=== PATIENT | female | born 1985 | race Caucasian/White ===

== ENCOUNTER → 2018-02-14 12:58 | Outpatient (CLI) | payer OTHER, SELFPAY | PROVIDERS: PCP Family Medicine; Visit Provider Physician Assistant | DX: J02.9 Acute pharyngitis, unspecified (principal) | CPT/HCPCS: 87070 ==

== ENCOUNTER → 2018-07-18 10:29 | Outpatient (CLI) | payer OTHER, SELFPAY ==
[2018-07-18 11:28] LABS: Cholesterol 163 mg/dL (140-199); HDL Cholesterol 97 mg/dL (40-60); LDL Cholesterol Calculated 50 mg/dL (<100); Triglycerides 81 mg/dL (35-150)
== END ==
PROVIDERS: PCP Student in an Organized Health Care Education/Training Program; Visit Provider Student in an Organized Health Care Education/Training Program
DX: E55.9 Vitamin D deficiency, unspecified (principal); Z13.220 Encounter for screening for lipoid disorders
CPT/HCPCS: 36415; 80061; 82306

== ENCOUNTER 2018-12-30 12:37 | Emergency (ER) | payer OTHER, SELFPAY ==
[2018-12-30 12:44] VITALS: BP 129/85; PULSE 86; RESP 15; TEMP 36.8; O2SAT 99; BMI 21.9
--- NOTE | 2018-12-30 12:47 | DI.RAD.S_ITS ---
PROCEDURE: XR ANKLE RT MIN 3V INDICATIONS: pain swelling TECHNIQUE: 3 views of the ankle were acquired. COMPARISON: None. FINDINGS: Bones: No displaced fractures or dislocations. Ankle mortise is normally aligned. No suspicious bony lesions. The talar dome demonstrates no ming abnormality. Soft tissues: Soft tissue swelling is seen laterally. IMPRESSION: Lateral soft tissue swelling, without an associated displaced fracture. If there is focal tenderness, or other clinical concern for a fracture not seen on these images in this patient with a given history of trauma, please consider a dedicated CT or a short-term followup plain film series (in 1-2 weeks) for further evaluation. If there is strong clinical suspicion for internal derangement of this joint, please consider a dedicated MRI for further evaluation (assuming that there is no contraindication to MRI). Dictated by: Prakash Riley M.D. on 12/30/2018 at 12:12 Approved by: Prakash Riley M.D. on 12/30/2018 at 12:13
[2018-12-30 14:18] VITALS: BP 124/83; PULSE 77; RESP 20; O2SAT 98
--- NOTE | 2019-01-01 08:12 | ED_ITS ---
HPI - Extremity Injury (Lower) General Chief Complaint: Extremity Injury, Lower Stated Complaint: Ankle Pain Time Seen by Provider: 12/30/18 13:10 Source: patient Mode of arrival: ambulatory Limitations: no limitations History of Present Illness HPI Narrative: Patient states she was running this morning on trails, and rolled her right ankle. She states that she had immediate pain and swelling, and did not want to walk on the ankle, for fear that it was broken. No prior injuries to the ankle. No injuries to any other body part. No other complaints at this time. Related Data Home Medications Medication Instructions Recorded Confirmed ascorbic acid (vitamin C) 500 mg PO QDAY #0 07/25/17 07/18/18 cholecalciferol (vitamin D3) 1,000 unit PO QDAY #0 07/25/17 07/18/18 [Vitamin D3] multivitamin [Multiple Vitamins] 1 tab PO QDAY #0 07/25/17 07/18/18 Previous Rx's Medication Instructions Recorded norgestimate 0.25 mg-ethinyl 1 tab PO DAILY #84 tab 07/25/18 estradiol 35 mcg tablet Allergies Allergy/AdvReac Type Severity Reaction Status Date / Time latex Allergy Severe Irritation Verified 12/30/18 12:44 to skin and respiratory reaction Review of Systems Constitutional Denies chills, Denies fever(s), Denies lethargy and Denies weakness Eyes Denies change in vision, Denies eye discharge, Denies irritation and Denies loss of vision ENT Ears, Nose, Mouth, and Throat: Denies change in voice, Denies neck pain and Denies sore throat Cardiovascular Denies chest pain, Denies irregular heart rhythm, Denies lightheadedness, Denies palpitations, Denies dyspnea, Denies dyspnea on exertion and Denies orthopnea Respiratory Denies cough, Denies dyspnea, Denies dyspnea on exertion and Denies wheezing Gastrointestinal Gastrointestinal: Denies abdominal pain, Denies change in bowel habits, Denies diarrhea, Denies nausea and Denies vomiting Genitourinary Denies hematuria, Denies flank pain, Denies urinary incontinence and Denies urinary urgency Musculoskeletal Denies neck pain Comments: Right ankle pain and swelling Integumentary/Breasts Denies pruritus, Denies erythema, Denies rash and Denies wounds Neurologic Denies confusion, Denies loss of vision and Denies weakness Psychiatric Denies anxiety, Denies confusion, Denies depression, Denies homicidal ideation and Denies suicidal ideation Endocrine Denies palpitations Hematologic/Lymphatic Denies easy bruising Allergic/Immunologic Denies wheezing [facility] Medical History Abnormal Pap smear of cervix (Resolved 2012) Vaginal delivery (Resolved) Social History Smoking Status: Former smoker alcohol intake: current Social History Smoking Status: Former smoker alcohol intake: current Exam Initial Vital Signs Initial Vital Signs: Vital Signs Temperature 98.3 F 12/30/18 12:44 Pulse Rate 86 12/30/18 12:44 Respiratory Rate 15 12/30/18 12:44 Blood Pressure 129/85 12/30/18 12:44 Pulse Oximetry 99 12/30/18 12:44 Const General: cooperative and well developed Nutritional Appearance: well nourished Orientation: alert, awake, oriented x3 and not confused HENMT Head: normocephalic and atraumatic Ears: external ears normal Nose: external nose normal and No nasal discharge Face and sinus: face symmetric and No dry mucous membranes Mouth: oral mucosae normal and moist mucous membranes Teeth and gingiva: dentition normal Eyes General: appearance normal, both eyes and all related structures Eyelids: eyelids normal Conjunctivae: conjunctivae normal Sclera: sclerae normal Pupils: PERRL EOM: EOM intact bilaterally Neck Neck: normal visual inspection, trachea midline, No lymphadenopathy, No midline deformity and No JVD Lymphatic: No lymphedema Chest Chest: normal inspection of the chest Resp Effort & Inspection: normal respiratory effort, able to speak in complete sentences, no respiratory distress and no use of accessory muscles Cardio Rate: regular rate Rhythm: regular rhythm Pulses: normal peripheral pulses Back/Spine/Pelvis Back: No CVA tenderness Cervical Spine: cervical ROM normal and No pain with cervical ROM Thoracic/Lumbar Spine: thoracic and lumbar spine normal to inspection Skin General: no rashes or lesions noted, No jaundice and No petechiae Neuro General: alert, oriented x3, gait normal and no focal motor deficits Speech: speech normal Extrem General: no calf tenderness Other: Patient has moderate edema over her lateral ankle, involving the distal fibular area, as well as the tissues just distal to this. There is point tender ness over the talofibular ligament area, as well as over the distal fibula. No deformity or step-off. Patient has movement of her toes, though she reports that it seems difficult to move her 4th and 5th toes, partly secondary to pain, and partly because it just seems difficult to do. Patient has good attention on her tendons, and tendon movement is noted with effort to move the toes. Psych Appearance: well kempt Mental Status: mental status grossly normal Attitude: cooperative Thought Content: normal and suicidality Judgment: judgment good Course Course Narrative: Patient declined analgesics in the emergency department, but was given ice. X-ray series of the patient's right ankle was negative for fracture or dislocation. I discussed with the patient that she is most likely sprained her ankle, and that this will take some weeks to heal. We have discussed home management of the symptoms, including weight-bearing as tolerated, when tolerated. An air splint has been placed in the emergency department. Patient states she has crutches at home. We have discussed that when the patient is pain-free with walking, she may start doing jogging on smooth ground again, but should hold off on trail running for the next 4-6 weeks. We have discussed the indications for follow-up, as well as the usual indications for return. MDM - Extremity Injury (Lower) Medical Records Attestation: I reviewed the patient's medical records. Imaging Data Ankle x-ray: Radiologist's impression: PROCEDURE: XR ANKLE RT MIN 3V INDICATIONS: pain swelling TECHNIQUE: 3 views of the ankle were acquired. COMPARISON: None. FINDINGS: Bones: No displaced fractures or dislocations. Ankle mortise is normally aligned. No suspicious bony lesions. The talar dome demonstrates no ming abnormality. Soft tissues: Soft tissue swelling is seen laterally. IMPRESSION: Lateral soft tissue swelling, without an associated displaced fracture. If there is focal tenderness, or other clinical concern for a fracture not seen on these images in this patient with a given history of trauma, please consider a dedicated CT or a short-term followup plain film series (in 1-2 weeks) for further evaluation. If there is strong clinical suspicion for internal derangement of this joint, please consider a dedicated MRI for further evaluation (assuming that there is no contraindication to MRI). Dictated by: Prakash Riley M.D. on 12/30/2018 at 12:12 Approved by: Prakash Riley M.D. on 12/30/2018 at 12:13 Discharge Plan Departure Patient Disposition: Home Clinical Impression: Ankle sprain and strain Discharge Date/Time: 12/30/18 14:19 Interventions: ED Discharge Assessment Last Done: 12/30/18 14:18 Instructions: DI for Ankle Sprain Activity Restrictions/Additional Instructions: Your x-rays look good. There is no evidence of a break or dislocation. You have most likely sprained your ankle. This will heal on its own in time. You may use crutches and the air splint, as needed. You may return to jogging and running when you are able to walk pain-free. Prescriptions: No Action multivitamin [Multiple Vitamins] 1 EACH tablet 1 tab PO QDAY Qty: 0 RF: 0 ascorbic acid (vitamin C) 500 MG tablet 500 mg PO QDAY Qty: 0 RF: 0 cholecalciferol (vitamin D3) [Vitamin D3] 1,000 UNIT tablet 1,000 unit PO QDAY Qty: 0 RF: 0 norgestimate-ethinyl estradiol [Sprintec (28)] 0.25-35 mg-mcg tablet 1 tab PO DAILY Qty: 84 RF: 1 Referrals: Lenin Martinez MD [Primary Care Provider] -
== END 2018-12-30 14:19 | disposition home or self-care (01) ==
PROVIDERS: Emergency Provider Emergency Medicine; PCP Student in an Organized Health Care Education/Training Program
DX: S93.401A Sprain of unspecified ligament of right ankle, initial encounter (principal); S96.911A Strain of unspecified muscle and tendon at ankle and foot level, right foot, initial encounter
CPT/HCPCS: 73610; 99282; 99283

== ENCOUNTER 2019-03-18 08:15 | Outpatient (RCR) | payer OTHER, SELFPAY ==
--- NOTE | 2019-02-12 18:01 | PT.OIE ---
Current Diagnoses Muscle weakness (generalized) (02/12/19) Other symptoms and signs involving the musculoskeletal system (02/12/19) Sprain of unspecified ligament of unspecified ankle, initial encounter (02/12/19) Other specified injury of muscle and tendon of long extensor muscle of toe at ankle and foot level, right foot, initial encounter (02/12/19) Past Medical History (Last Reviewed 01/01/19 @ 08:20 by Lindsey Gerardo MD) Abnormal Pap smear of cervix (Resolved 2012) Vaginal delivery (Resolved) Provider Visit Care Team Role Provider Type Lenin Martinez MD Attending Provider Physician Primary Care Provider Specialty: Internal Medicine Address: [address] [place] [address], [facility] Email: Physical Therapy Initial Evaluation PT-OP-A Visit Information Start: 02/11/19 14:59 Freq: Status: Active Protocol: Document 02/12/19 08:15 LRN (Rec: 02/12/19 09:46 LRN [id number]) Out-Patient Physical Therapy Visit Information Visit Information Visit Type Initial Evaluation Visit Start Time 08:15 Visit Stop Time 09:07 Total Visit Minutes 52 Visit Number 1 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 History of Current Condition Pt reports 2.5 miles into a 10 mile run on a trail she rolled the R ankle (inversion direction) over a root and heard a pop and/or snap and had immediate swelling and bruising. She was unable to walk and was carried out by her son. She was given and aircast brace in the emergency room and wore it for 2 weeks, and then wrapped it for one week. She currently exercises with her kids and does cycling. At home she is bothered by stiffness in the R ankle in the morning and has difficulty with descending of stairs or descending with hiking. Pointing of her toes and turning her foot inwards hurts, but flexing up is not painful. Prior Treatments and Tests X-ray @ on 12/30/18. No fractures. Future Testing and Treatments Planned None Developmental History Developmental History Has rolled ankle before many times but nothing with injury. Treatment Goals Patient/Caregiver Goals Pt goal is to get it back to normal. Biking, running. Prior level: Run 20-25 miles/ week, more in the summer. Biked daily. Prior Functional Status Baseline Function- ADL's Independent Baseline Function- Mobility Independent Baseline Function- Gait Normal Current Functional Impairments (Reported) Functional Limitations- ADL's Limited with squatting, walking down stairs, standing and moving foot into inversion . Functional Limitations- Mobility/Gait None Personal Factors Other Personal Factors That May Effect Children at home: 16 yr old Therapy/Recovery daughter & two 15 yr olds. Back pain with prolonged standing. Latex allergy PT-OP-C Subjective Start: 02/11/19 14:59 Freq: Status: Active Protocol: Document 02/12/19 08:15 LRN (Rec: 02/12/19 09:46 LRN [id number]) Patient Questionnaires Foot & Ankle Ability Measure- ADL and Sports FAAM-ADL Score 77 FAAM-ADL Impairment 1 to 19% Impaired (Score 67-83 ) FAAM-Sport Score 15 FAAM-Sport Impairment 40 to 59% Impaired (Score 12- 18) Lower Extremity Functional Scale LEFS Score 67 LEFS Impairment 1 to 19% Impaired (Score 63-79 ) OP-PT Pain Assessment Pain Assessment Grid Paper Pain Assessment Grid Completed Yes Location R ankle Pain Location Details Inferior & Posterior lateral malleolus Intensity 0 Scale Used Numeric (1 - 10) Description Aching Burning Frequency Intermittent Pain Aggravating Factors Stair Climbing Patient Stated Pain Goal Painfree, back into running Comments Pain Comments Squat PT-OP-D Balance Start: 02/11/19 14:59 Freq: Status: Active Protocol: Document 02/12/19 08:15 LRN (Rec: 02/12/19 17:24 LRN [id number]) Balance Tests Single Limb Standing Single Limb- Right EO: 60+ secs, EC: 26 secs Single Limb- Left EO: 60+ secs, EC: 25 secs Other Other Balance Tests Performed SLS with head turns: 60+ sec' s bilaterally. PT-OP-F Manual Assessment Start: 02/11/19 14:59 Freq: Status: Active Protocol: Document 02/12/19 08:15 LRN (Rec: 02/12/19 17:24 LRN [id number]) Manual Assessments Soft Tissue Assessment Soft Tissue Mobility Assessment Mild swelling at the R lateral > medial ankle posteriorly, inferiorly and inferoanteriorly to the malleolus. Moderate palpation - Discomfort. Mild palpation - no pain. Joint Mobility Assessment Joint Mobility Assessment Increased AP glide of R Calcaneus on Talus. PT-OP-G Mobility & Gait Start: 02/11/19 14:59 Freq: Status: Active Protocol: Document 02/12/19 08:15 LRN (Rec: 02/12/19 17:24 LRN [id number]) OP Mobility Evaluation Functional Movements Squats Decreased on the R side. Running Assessment Deferred. PT-OP-H Neuro Start: 02/11/19 14:59 Freq: Status: Active Protocol: Document 02/12/19 08:15 LRN (Rec: 02/12/19 17:24 LRN [id number]) Sensation Evaluation Gross Sensation Gross Sensation WNL PT-OP-J Posture/Palpation/Skin Start: 02/11/19 14:59 Freq: Status: Active Protocol: Document 02/12/19 08:15 LRN (Rec: 02/12/19 17:24 LRN [id number]) Posture Evaluation Position Standing Evaluation View All positions Head/C-Spine Posture Neutral Position T-Spine Posture Neutral L-Spine Posture Increased Lordosis Shoulder Posture Neutral Pelvis Posture Anteriorly Tilted Weight Distribution Weight Shifted Left Knee Posture (L) Genu Valgus (R) Genu Valgus Ankle/Foot Posture (R) Calcaneal Inversion Foot Arch (L) High Arch Skin Assessment Edema Assessment Right Ankle Edema Type Non-Pitting Edema Degree 1+ Edema Appearance Puffy Subjective Edema Description Tightness Comments Edema at medial and lateral ankle. PT-OP-K Range of Motion Start: 02/11/19 14:59 Freq: Status: Active Protocol: Document 02/12/19 08:15 LRN (Rec: 02/12/19 17:24 LRN [id number]) Knee Goniometric Range of Motion Knee Right Knee ROM WFL Yes Hyper-Extension Active 3 Left Knee ROM WFL Yes Hyper-Extension Active 3 Ankle and Foot Goniometric Range of Motion Ankle and Foot Right Active Ankle/Foot ROM WFL No Testing Position Supine Dorsiflexion with Knee Flexed 10 Dorsiflexion with Knee Extended 4 Plantarflexion 52 Inversion 35 Eversion 0 Left Active Ankle/Foot ROM WFL Yes Testing Position Supine Dorsiflexion with Knee Flexed 9 Dorsiflexion with Knee Extended 7 Plantarflexion 58 Inversion 37 Eversion 10 Toe Range of Motion Toes ROM Limitations Comments None PT-OP-L Special Tests Start: 02/11/19 14:59 Freq: Status: Active Protocol: Document 02/12/19 08:15 LRN (Rec: 02/12/19 17:24 LRN [id number]) Special Tests Foot/Ankle Special Tests R Anterior Draw Test Results Increased mobility on lateral side PT-OP-M Strength Start: 02/11/19 14:59 Freq: Status: Active Protocol: Document 02/12/19 08:15 LRN (Rec: 02/12/19 17:24 LRN [id number]) Trunk Strength Trunk Manual Muscle Testing Testing Position Standing Core Stabilization Pt unable to maintain upright posturing with single leg standing. Hip Strength Hip Manual Muscle Testing Right Comments Knee collapses inward on squatting. Left Comments Knee collapses inward on squatting. Knee Strength Knee Manual Muscle Testing Right Reason Not Measured WFL Left Reason Not Measured WFL Ankle/Foot Strength Ankle and Foot Manual Muscle Testing Right Dorsiflexion (L4) 5 Normal Plantarflexion (S1) 5 Normal Inversion 5 Normal Eversion (S1) 4 Good Left Reason Not Measured WFL PT-OP-Q Treatments Start: 02/11/19 14:59 Freq: Status: Active Protocol: Document 02/12/19 08:15 LRN (Rec: 02/12/19 17:24 LRN [id number]) Self-Care/Home Management Treatment Activities Self-Care/Home Management Activities Instructed pt to continue using compression (OMKAR wrap) and cryotherapy to reduce swelling at the ankle. Reviewed home exercises and briefly discussed use of ankle support for ex's (running) in the future. PT-OP-T Assessment and Plan Start: 02/11/19 14:59 Freq: Status: Active Protocol: Document 02/12/19 08:15 LRN (Rec: 02/12/19 09:46 LRN [id number]) Physical Therapy Assessment Rehab Potential Rehabilitation Potential Excellent Evaluation Complexity Number of Personal Factors/Comorbidities 1-2 Number of Body Systems Impaired 4 or More Clinical Presentation at Evaluation Stable Impairments Impairments Activity Tolerance Balance Edema Functional Activities Pain ROM Strength Other Concerns Fall Risk No Age Related Concerns Effect on family/home life Goals Four Impairment LEFS score 67 of 80 (83.75 of maximal function) Software Development Intern Goal (LTG) LEFS score of 80 (100% of maximal function) to improve her functional mobility and quality of life. LTG Duration 03/26/19 Three Impairment Difficulty ambulating down stairs due to pain Short Term Goal (STG) Pt will demonstrate full R ankle AROM without pain to improve functional ability ( stair ambulation) without pain . STG Duration 02/26/19 Software Development Intern Goal (LTG) Pt will be independent in ECC strengthening ex's for a home program and will be able to return to prior level of function of ambulating down stairs without pain. LTG Duration 03/26/19 Two Impairment Pt is not able to tolerate running due to R ankle instability and pain. Short Term Goal (STG) Pt will be able to single leg stand with eyes closed for at least 60 secs without loss of balance. STG Duration 02/26/19 Software Development Intern Goal (LTG) Pt will be able to return to running on level surfaces without pain and mild even surfaces minimal pain using a soft ankle brace. LTG Duration 03/26/19 One Impairment Lacks independent HEP Software Development Intern Goal (LTG) Pt will be independent on a self care HEP. LTG Duration 03/26/19 Assessment Summary Assessment Pt is a 34 yo healthy female who appears to have suffered a R ankle lateral sprain with instability, and most likely suffered injury to the Deltoid ligament. She demonstrated increased mobility of the foot at the talocalcaneal joint on AP glide in ankle PF, but shows good stability at the mortise joint. Pt is primarily limited by stiffness at the R ankle, weakness with ankle EV, hip AB and core. She functionally has difficulty squatting and ambulating down stairs due to ankle weakness on eccentric loading, and weakness of the hips and core. She has discomfort with an inversion stress applied to the R ankle and demonstrates valgus at the ankle in standing and squatting. The pt will benefit from skilled physical therapy to improve R ankle mobility, functional strength and balance and to restore normal posture (at ankle), in order to promote safety with gait and for return to her prior level of function of running 20-25 miles/week. Physical Therapy Plan Frequency and Duration Frequency of Treatment 2x/Week Duration of Treatment 6 weeks Plan of Care Start Date 02/12/19 Plan of Care End Date 03/26/19 Therapeutic Interventions Therapeutic Interventions Aquatic Therapy Balance Training Coordination Training Gait Training Home Exercise Program Manual Therapy Neuromuscular Re-education Patient/Caregiver Education Self-Care/Home Management Soft Tissue Mobilization Taping Therapeutic Exercises Modalities Cold Pack/Ice Massage Electric Stimulation Infrared Therapy Iontophoresis Ultrasound Next Visit Focus/Plan Next Note Type Treatment Note Next Visit Plan Progressing to R ankle: FROM, normal strength (ecc>conc, EV , core), normalize balance ( SLS EC), normalize girth (K- tape, cryotherapy), HEP, return to running.
--- NOTE | 2019-02-15 10:30 | PT.OTN ---
Current Diagnoses Muscle weakness (generalized) (02/15/19) Other symptoms and signs involving the musculoskeletal system (02/15/19) Sprain of unspecified ligament of unspecified ankle, initial encounter (02/15/19) Other specified injury of muscle and tendon of long extensor muscle of toe at ankle and foot level, right foot, initial encounter (02/15/19) Physical Therapy Treatment Note PT-OP-A Visit Information Start: 02/11/19 14:59 Freq: Status: Active Protocol: Document 02/15/19 09:44 SA (Rec: 02/15/19 10:30 SA [email or web address]) Out-Patient Physical Therapy Visit Information Visit Information Visit Type Treatment Note Visit Start Time 07:30 Visit Stop Time 08:17 Total Visit Minutes 47 Visit Number 2 Number of ART PROFESSOR Visits 1 PT-OP-B Current Condition Start: 02/11/19 14:59 Freq: Status: Active Protocol: Document 02/12/19 08:15 LRN (Rec: 02/12/19 09:46 LRN [id number]) Current Condition History of Current Condition Onset Date December 30, 2018 Current Complaints R ankle stiffness and pain with inward rolling of ankle. History of Current Condition Pt reports 2.5 miles into a 10 mile run on a trail she rolled the R ankle (inversion direction) over a root and heard a pop and/or snap and had immediate swelling and bruising. She was unable to walk and was carried out by her son. She was given and aircast brace in the emergency room and wore it for 2 weeks, and then wrapped it for one week. She currently exercises with her kids and does cycling. At home she is bothered by stiffness in the R ankle in the morning and has difficulty with descending of stairs or descending with hiking. Pointing of her toes and turning her foot inwards hurts, but flexing up is not painful. Prior Treatments and Tests X-ray @ on 12/30/18. No fractures. Future Testing and Treatments Planned None Developmental History Developmental History Has rolled ankle before many times but nothing with injury. Treatment Goals Patient/Caregiver Goals Pt goal is to get it back to normal. Biking, running. Prior level: Run 20-25 miles/ week, more in the summer. Biked daily. Prior Functional Status Baseline Function- ADL's Independent Baseline Function- Mobility Independent Baseline Function- Gait Normal Current Functional Impairments (Reported) Functional Limitations- ADL's Limited with squatting, walking down stairs, standing and moving foot into inversion . Functional Limitations- Mobility/Gait None Personal Factors Other Personal Factors That May Effect Children at home: 16 yr old Therapy/Recovery daughter & two 15 yr olds. Back pain with prolonged standing. Latex allergy PT-OP-C Subjective Start: 02/11/19 14:59 Freq: Status: Active Protocol: Document 02/15/19 09:44 SA (Rec: 02/15/19 10:30 SA [email or web address]) OP-PT Subjective Patient Comments Patient Comments Tolerating riding my bike well , doing exercises/stretches at home. have not tried running yet. PT-OP-D Balance Start: 02/11/19 14:59 Freq: Status: Active Protocol: Document 02/12/19 08:15 LRN (Rec: 02/12/19 17:24 LRN [id number]) Balance Tests Single Limb Standing Single Limb- Right EO: 60+ secs, EC: 26 secs Single Limb- Left EO: 60+ secs, EC: 25 secs Other Other Balance Tests Performed SLS with head turns: 60+ sec' s bilaterally. PT-OP-F Manual Assessment Start: 02/11/19 14:59 Freq: Status: Active Protocol: Document 02/12/19 08:15 LRN (Rec: 02/12/19 17:24 LRN [id number]) Manual Assessments Soft Tissue Assessment Soft Tissue Mobility Assessment Mild swelling at the R lateral > medial ankle posteriorly, inferiorly and inferoanteriorly to the malleolus. Moderate palpation - Discomfort. Mild palpation - no pain. Joint Mobility Assessment Joint Mobility Assessment Increased AP glide of R Calcaneus on Talus. PT-OP-G Mobility & Gait Start: 02/11/19 14:59 Freq: Status: Active Protocol: Document 02/12/19 08:15 LRN (Rec: 02/12/19 17:24 LRN [id number]) OP Mobility Evaluation Functional Movements Squats Decreased on the R side. Running Assessment Deferred. PT-OP-H Neuro Start: 02/11/19 14:59 Freq: Status: Active Protocol: Document 02/12/19 08:15 LRN (Rec: 02/12/19 17:24 LRN [id number]) Sensation Evaluation Gross Sensation Gross Sensation WNL PT-OP-J Posture/Palpation/Skin Start: 02/11/19 14:59 Freq: Status: Active Protocol: Document 02/12/19 08:15 LRN (Rec: 02/12/19 17:24 LRN [id number]) Posture Evaluation Position Standing Evaluation View All positions Head/C-Spine Posture Neutral Position T-Spine Posture Neutral L-Spine Posture Increased Lordosis Shoulder Posture Neutral Pelvis Posture Anteriorly Tilted Weight Distribution Weight Shifted Left Knee Posture (L) Genu Valgus (R) Genu Valgus Ankle/Foot Posture (R) Calcaneal Inversion Foot Arch (L) High Arch Skin Assessment Edema Assessment Right Ankle Edema Type Non-Pitting Edema Degree 1+ Edema Appearance Puffy Subjective Edema Description Tightness Comments Edema at medial and lateral ankle. PT-OP-K Range of Motion Start: 02/11/19 14:59 Freq: Status: Active Protocol: Document 02/12/19 08:15 LRN (Rec: 02/12/19 17:24 LRN [id number]) Knee Goniometric Range of Motion Knee Right Knee ROM WFL Yes Hyper-Extension Active 3 Left Knee ROM WFL Yes Hyper-Extension Active 3 Ankle and Foot Goniometric Range of Motion Ankle and Foot Right Active Ankle/Foot ROM WFL No Testing Position Supine Dorsiflexion with Knee Flexed 10 Dorsiflexion with Knee Extended 4 Plantarflexion 52 Inversion 35 Eversion 0 Left Active Ankle/Foot ROM WFL Yes Testing Position Supine Dorsiflexion with Knee Flexed 9 Dorsiflexion with Knee Extended 7 Plantarflexion 58 Inversion 37 Eversion 10 Toe Range of Motion Toes ROM Limitations Comments None PT-OP-L Special Tests Start: 02/11/19 14:59 Freq: Status: Active Protocol: Document 02/12/19 08:15 LRN (Rec: 02/12/19 17:24 LRN [id number]) Special Tests Foot/Ankle Special Tests R Anterior Draw Test Results Increased mobility on lateral side PT-OP-M Strength Start: 02/11/19 14:59 Freq: Status: Active Protocol: Document 02/12/19 08:15 LRN (Rec: 02/12/19 17:24 LRN [id number]) Trunk Strength Trunk Manual Muscle Testing Testing Position Standing Core Stabilization Pt unable to maintain upright posturing with single leg standing. Hip Strength Hip Manual Muscle Testing Right Comments Knee collapses inward on squatting. Left Comments Knee collapses inward on squatting. Knee Strength Knee Manual Muscle Testing Right Reason Not Measured WFL Left Reason Not Measured WFL Ankle/Foot Strength Ankle and Foot Manual Muscle Testing Right Dorsiflexion (L4) 5 Normal Plantarflexion (S1) 5 Normal Inversion 5 Normal Eversion (S1) 4 Good Left Reason Not Measured WFL PT-OP-Q Treatments Start: 02/11/19 14:59 Freq: Status: Active Protocol: Document 02/15/19 09:44 SA (Rec: 02/15/19 10:30 SA [email or web address]) Therapeutic Exercises Supine Exercises Ankle Alphabet Side right Reps/Minutes 2 x through INV/EVER/DF Side right Resistance AROM Reps/Minutes 10 x each calf stretch Side bilateral Equipment Used at stair/heel hang Reps/Minutes 20 x 3 Standing Exercises SLS Side right Reps/Minutes 10-15 4 x Comments focus on WBing through 1st met head Manual Therapy Treatment Soft Tissue Mobilization STM/friction massage Body Location R lateral ankle Mobilization Type Cross-Friction Myofascial Release Strumming Intensity/Depth Moderate Body Position Hooklying Comments well tolerated, passive gastroc/soleus stretching PT-OP-R Modalities Start: 02/11/19 14:59 Freq: Status: Active Protocol: Document 02/15/19 09:44 SA (Rec: 02/15/19 10:30 SA [email or web address]) Ultrasound Therapy Treatment Pulsed US Treatment Duration (minutes) 8 Patient Position Hooklying Applicator Size (cm2) 2 Duty Cycle 50% Intensity Setting (w/cm2) 1.2 Comments R lateral ankle PT-OP-T Assessment and Plan Start: 02/11/19 14:59 Freq: Status: Active Protocol: Document 02/15/19 09:44 SA (Rec: 02/15/19 10:30 SA [email or web address]) Physical Therapy Assessment Assessment Summary Assessment Pt with good exercise tolerance , difficulty with PF of R ankle and instability with SLS and lunge. Education for exercise progression, use of CP after activity and avoiding uneven terrain for now. Physical Therapy Plan Next Visit Focus/Plan Next Note Type Treatment Note Next Visit Plan Progressing to R ankle: FROM, normal strength (ecc>conc, EV , core), normalize balance ( SLS EC), normalize girth (K- tape, cryotherapy), HEP, return to running.
--- NOTE | 2019-02-19 17:30 | PT.OTN ---
Current Diagnoses Muscle weakness (generalized) (02/19/19) Other symptoms and signs involving the musculoskeletal system (02/19/19) Sprain of unspecified ligament of unspecified ankle, initial encounter (02/19/19) Other specified injury of muscle and tendon of long extensor muscle of toe at ankle and foot level, right foot, initial encounter (02/19/19) Physical Therapy Treatment Note PT-OP-A Visit Information Start: 02/11/19 14:59 Freq: Status: Active Protocol: Document 02/19/19 09:56 LRN (Rec: 02/19/19 10:30 LRN [id number]) Out-Patient Physical Therapy Visit Information Visit Information Visit Type Treatment Note Visit Start Time 09:56 Visit Stop Time 10:29 Total Visit Minutes 33 Visit Number 3 PT-OP-B Current Condition Start: 02/11/19 14:59 Freq: Status: Active Protocol: Document 02/12/19 08:15 LRN (Rec: 02/12/19 09:46 LRN [id number]) Current Condition History of Current Condition Onset Date December 30, 2018 Current Complaints R ankle stiffness and pain with inward rolling of ankle. History of Current Condition Pt reports 2.5 miles into a 10 mile run on a trail she rolled the R ankle (inversion direction) over a root and heard a pop and/or snap and had immediate swelling and bruising. She was unable to walk and was carried out by her son. She was given and aircast brace in the emergency room and wore it for 2 weeks, and then wrapped it for one week. She currently exercises with her kids and does cycling. At home she is bothered by stiffness in the R ankle in the morning and has difficulty with descending of stairs or descending with hiking. Pointing of her toes and turning her foot inwards hurts, but flexing up is not painful. Prior Treatments and Tests X-ray @ on 12/30/18. No fractures. Future Testing and Treatments Planned None Developmental History Developmental History Has rolled ankle before many times but nothing with injury. Treatment Goals Patient/Caregiver Goals Pt goal is to get it back to normal. Biking, running. Prior level: Run 20-25 miles/ week, more in the summer. Biked daily. Prior Functional Status Baseline Function- ADL's Independent Baseline Function- Mobility Independent Baseline Function- Gait Normal Current Functional Impairments (Reported) Functional Limitations- ADL's Limited with squatting, walking down stairs, standing and moving foot into inversion . Functional Limitations- Mobility/Gait None Personal Factors Other Personal Factors That May Effect Children at home: 16 yr old Therapy/Recovery daughter & two 15 yr olds. Back pain with prolonged standing. Latex allergy PT-OP-C Subjective Start: 02/11/19 14:59 Freq: Status: Active Protocol: Document 02/19/19 09:56 LRN (Rec: 02/19/19 10:30 LRN [id number]) OP-PT Subjective Patient Comments Patient Comments States she has been doing mountain and rode biking with her sons. PT-OP-D Balance Start: 02/11/19 14:59 Freq: Status: Active Protocol: Document 02/12/19 08:15 LRN (Rec: 02/12/19 17:24 LRN [id number]) Balance Tests Single Limb Standing Single Limb- Right EO: 60+ secs, EC: 26 secs Single Limb- Left EO: 60+ secs, EC: 25 secs Other Other Balance Tests Performed SLS with head turns: 60+ sec' s bilaterally. PT-OP-F Manual Assessment Start: 02/11/19 14:59 Freq: Status: Active Protocol: Document 02/12/19 08:15 LRN (Rec: 02/12/19 17:24 LRN [id number]) Manual Assessments Soft Tissue Assessment Soft Tissue Mobility Assessment Mild swelling at the R lateral > medial ankle posteriorly, inferiorly and inferoanteriorly to the malleolus. Moderate palpation - Discomfort. Mild palpation - no pain. Joint Mobility Assessment Joint Mobility Assessment Increased AP glide of R Calcaneus on Talus. PT-OP-G Mobility & Gait Start: 02/11/19 14:59 Freq: Status: Active Protocol: Document 02/12/19 08:15 LRN (Rec: 02/12/19 17:24 LRN [id number]) OP Mobility Evaluation Functional Movements Squats Decreased on the R side. Running Assessment Deferred. PT-OP-H Neuro Start: 02/11/19 14:59 Freq: Status: Active Protocol: Document 02/12/19 08:15 LRN (Rec: 02/12/19 17:24 LRN [id number]) Sensation Evaluation Gross Sensation Gross Sensation WNL PT-OP-J Posture/Palpation/Skin Start: 02/11/19 14:59 Freq: Status: Active Protocol: Document 02/12/19 08:15 LRN (Rec: 02/12/19 17:24 LRN [id number]) Posture Evaluation Position Standing Evaluation View All positions Head/C-Spine Posture Neutral Position T-Spine Posture Neutral L-Spine Posture Increased Lordosis Shoulder Posture Neutral Pelvis Posture Anteriorly Tilted Weight Distribution Weight Shifted Left Knee Posture (L) Genu Valgus (R) Genu Valgus Ankle/Foot Posture (R) Calcaneal Inversion Foot Arch (L) High Arch Skin Assessment Edema Assessment Right Ankle Edema Type Non-Pitting Edema Degree 1+ Edema Appearance Puffy Subjective Edema Description Tightness Comments Edema at medial and lateral ankle. PT-OP-K Range of Motion Start: 02/11/19 14:59 Freq: Status: Active Protocol: Document 02/12/19 08:15 LRN (Rec: 02/12/19 17:24 LRN [id number]) Knee Goniometric Range of Motion Knee Right Knee ROM WFL Yes Hyper-Extension Active 3 Left Knee ROM WFL Yes Hyper-Extension Active 3 Ankle and Foot Goniometric Range of Motion Ankle and Foot Right Active Ankle/Foot ROM WFL No Testing Position Supine Dorsiflexion with Knee Flexed 10 Dorsiflexion with Knee Extended 4 Plantarflexion 52 Inversion 35 Eversion 0 Left Active Ankle/Foot ROM WFL Yes Testing Position Supine Dorsiflexion with Knee Flexed 9 Dorsiflexion with Knee Extended 7 Plantarflexion 58 Inversion 37 Eversion 10 Toe Range of Motion Toes ROM Limitations Comments None PT-OP-L Special Tests Start: 02/11/19 14:59 Freq: Status: Active Protocol: Document 02/12/19 08:15 LRN (Rec: 02/12/19 17:24 LRN [id number]) Special Tests Foot/Ankle Special Tests R Anterior Draw Test Results Increased mobility on lateral side PT-OP-M Strength Start: 02/11/19 14:59 Freq: Status: Active Protocol: Document 02/12/19 08:15 LRN (Rec: 02/12/19 17:24 LRN [id number]) Trunk Strength Trunk Manual Muscle Testing Testing Position Standing Core Stabilization Pt unable to maintain upright posturing with single leg standing. Hip Strength Hip Manual Muscle Testing Right Comments Knee collapses inward on squatting. Left Comments Knee collapses inward on squatting. Knee Strength Knee Manual Muscle Testing Right Reason Not Measured WFL Left Reason Not Measured WFL Ankle/Foot Strength Ankle and Foot Manual Muscle Testing Right Dorsiflexion (L4) 5 Normal Plantarflexion (S1) 5 Normal Inversion 5 Normal Eversion (S1) 4 Good Left Reason Not Measured WFL PT-OP-Q Treatments Start: 02/11/19 14:59 Freq: Status: Active Protocol: Document 02/19/19 09:56 LRN (Rec: 02/19/19 10:30 LRN [id number]) Gym Equipment Shuttle Recovery Unilateral Squats Details R foot low on platform for full support Resistance 50#, 37#, 25# Shuttle Recovery Platform Stable Reps/Time 8x, 4x, 2x 15x Bilateral Squats Details Feet low on platform for full support Resistance 50# Shuttle Recovery Platform Stable Reps/Time 15x 2 Therapeutic Exercises Supine Exercises INV/EVER/DF Side right Resistance AROM Reps/Minutes 10 x each calf stretch Supine Exercise Name Gastroc & Soleus stretch Comments R soleus is tighter than gastroc. Standing Exercises SLS Side right Reps/Minutes 10-15 4 x Comments focus on WBing through 1st met head PT-OP-R Modalities Start: 02/11/19 14:59 Freq: Status: Active Protocol: Document 02/19/19 09:56 LRN (Rec: 02/19/19 10:30 LRN [id number]) Hot Pack/Cold Pack Treatment Cold Pack Location R ankle Patient Position Hooklying Treatment Duration (minutes) 10 Comments Cryocuff Ultrasound Therapy Treatment Pulsed US Treatment Duration (minutes) 8 Patient Position Hooklying Applicator Size (cm2) 2 Frequency Setting (mHz) 3 Duty Cycle 50% Intensity Setting (w/cm2) 0.8 Comments R lateral ankle PT-OP-T Assessment and Plan Start: 02/11/19 14:59 Freq: Status: Active Protocol: Document 02/19/19 09:56 LRN (Rec: 02/19/19 10:30 LRN [id number]) Physical Therapy Assessment Assessment Summary Assessment Fair tolerance to strengthening on shuttle for single squats @ 50# & 37#, tolerable @ 25#. Pt not using cryotherapy at home regularly . Physical Therapy Plan Frequency and Duration Frequency of Treatment 2x/Week Duration of Treatment 6 weeks Plan of Care Start Date 02/12/19 Plan of Care End Date 03/26/19 Next Visit Focus/Plan Next Note Type Treatment Note Next Visit Plan Try K-tape for edema. Progress to R ankle: FROM, normal strength (ecc>conc, EV, core), normalize balance (SLS EC), normalize girth (K-tape, cryotherapy), HEP, return to running.
--- NOTE | 2019-02-26 10:30 | PT.OTN ---
Current Diagnoses Muscle weakness (generalized) (02/26/19) Other symptoms and signs involving the musculoskeletal system (02/26/19) Sprain of unspecified ligament of unspecified ankle, initial encounter (02/26/19) Other specified injury of muscle and tendon of long extensor muscle of toe at ankle and foot level, right foot, initial encounter (02/26/19) Physical Therapy Treatment Note PT-OP-A Visit Information Start: 02/11/19 14:59 Freq: Status: Active Protocol: Document 02/26/19 10:21 SA (Rec: 02/26/19 10:30 SA [email or web address]) Out-Patient Physical Therapy Visit Information Visit Information Visit Type Treatment Note Visit Start Time 09:40 Visit Stop Time 10:25 Total Visit Minutes 45 Visit Number 4 Number of [employer]IVITIES Visits 1 PT-OP-B Current Condition Start: 02/11/19 14:59 Freq: Status: Active Protocol: Document 02/12/19 08:15 LRN (Rec: 02/12/19 09:46 LRN [id number]) Current Condition History of Current Condition Onset Date December 30, 2018 Current Complaints R ankle stiffness and pain with inward rolling of ankle. History of Current Condition Pt reports 2.5 miles into a 10 mile run on a trail she rolled the R ankle (inversion direction) over a root and heard a pop and/or snap and had immediate swelling and bruising. She was unable to walk and was carried out by her son. She was given and aircast brace in the emergency room and wore it for 2 weeks, and then wrapped it for one week. She currently exercises with her kids and does cycling. At home she is bothered by stiffness in the R ankle in the morning and has difficulty with descending of stairs or descending with hiking. Pointing of her toes and turning her foot inwards hurts, but flexing up is not painful. Prior Treatments and Tests X-ray @ on 12/30/18. No fractures. Future Testing and Treatments Planned None Developmental History Developmental History Has rolled ankle before many times but nothing with injury. Treatment Goals Patient/Caregiver Goals Pt goal is to get it back to normal. Biking, running. Prior level: Run 20-25 miles/ week, more in the summer. Biked daily. Prior Functional Status Baseline Function- ADL's Independent Baseline Function- Mobility Independent Baseline Function- Gait Normal Current Functional Impairments (Reported) Functional Limitations- ADL's Limited with squatting, walking down stairs, standing and moving foot into inversion . Functional Limitations- Mobility/Gait None Personal Factors Other Personal Factors That May Effect Children at home: 16 yr old Therapy/Recovery daughter & two 15 yr olds. Back pain with prolonged standing. Latex allergy PT-OP-C Subjective Start: 02/11/19 14:59 Freq: Status: Active Protocol: Document 02/26/19 10:21 SA (Rec: 02/26/19 10:30 SA [email or web address]) OP-PT Subjective Patient Comments Patient Comments Still road and mt biking, attempted a very short jog on even surface and did not continue d/t pain and instability. Have not been using CP at home. PT-OP-D Balance Start: 02/11/19 14:59 Freq: Status: Active Protocol: Document 02/12/19 08:15 LRN (Rec: 02/12/19 17:24 LRN [id number]) Balance Tests Single Limb Standing Single Limb- Right EO: 60+ secs, EC: 26 secs Single Limb- Left EO: 60+ secs, EC: 25 secs Other Other Balance Tests Performed SLS with head turns: 60+ sec' s bilaterally. PT-OP-F Manual Assessment Start: 02/11/19 14:59 Freq: Status: Active Protocol: Document 02/12/19 08:15 LRN (Rec: 02/12/19 17:24 LRN [id number]) Manual Assessments Soft Tissue Assessment Soft Tissue Mobility Assessment Mild swelling at the R lateral > medial ankle posteriorly, inferiorly and inferoanteriorly to the malleolus. Moderate palpation - Discomfort. Mild palpation - no pain. Joint Mobility Assessment Joint Mobility Assessment Increased AP glide of R Calcaneus on Talus. PT-OP-G Mobility & Gait Start: 02/11/19 14:59 Freq: Status: Active Protocol: Document 02/12/19 08:15 LRN (Rec: 02/12/19 17:24 LRN [id number]) OP Mobility Evaluation Functional Movements Squats Decreased on the R side. Running Assessment Deferred. PT-OP-H Neuro Start: 02/11/19 14:59 Freq: Status: Active Protocol: Document 02/12/19 08:15 LRN (Rec: 02/12/19 17:24 LRN [id number]) Sensation Evaluation Gross Sensation Gross Sensation WNL PT-OP-J Posture/Palpation/Skin Start: 02/11/19 14:59 Freq: Status: Active Protocol: Document 02/12/19 08:15 LRN (Rec: 02/12/19 17:24 LRN [id number]) Posture Evaluation Position Standing Evaluation View All positions Head/C-Spine Posture Neutral Position T-Spine Posture Neutral L-Spine Posture Increased Lordosis Shoulder Posture Neutral Pelvis Posture Anteriorly Tilted Weight Distribution Weight Shifted Left Knee Posture (L) Genu Valgus (R) Genu Valgus Ankle/Foot Posture (R) Calcaneal Inversion Foot Arch (L) High Arch Skin Assessment Edema Assessment Right Ankle Edema Type Non-Pitting Edema Degree 1+ Edema Appearance Puffy Subjective Edema Description Tightness Comments Edema at medial and lateral ankle. PT-OP-K Range of Motion Start: 02/11/19 14:59 Freq: Status: Active Protocol: Document 02/12/19 08:15 LRN (Rec: 02/12/19 17:24 LRN [id number]) Knee Goniometric Range of Motion Knee Right Knee ROM WFL Yes Hyper-Extension Active 3 Left Knee ROM WFL Yes Hyper-Extension Active 3 Ankle and Foot Goniometric Range of Motion Ankle and Foot Right Active Ankle/Foot ROM WFL No Testing Position Supine Dorsiflexion with Knee Flexed 10 Dorsiflexion with Knee Extended 4 Plantarflexion 52 Inversion 35 Eversion 0 Left Active Ankle/Foot ROM WFL Yes Testing Position Supine Dorsiflexion with Knee Flexed 9 Dorsiflexion with Knee Extended 7 Plantarflexion 58 Inversion 37 Eversion 10 Toe Range of Motion Toes ROM Limitations Comments None PT-OP-L Special Tests Start: 02/11/19 14:59 Freq: Status: Active Protocol: Document 02/12/19 08:15 LRN (Rec: 02/12/19 17:24 LRN [id number]) Special Tests Foot/Ankle Special Tests R Anterior Draw Test Results Increased mobility on lateral side PT-OP-M Strength Start: 02/11/19 14:59 Freq: Status: Active Protocol: Document 02/12/19 08:15 LRN (Rec: 02/12/19 17:24 LRN [id number]) Trunk Strength Trunk Manual Muscle Testing Testing Position Standing Core Stabilization Pt unable to maintain upright posturing with single leg standing. Hip Strength Hip Manual Muscle Testing Right Comments Knee collapses inward on squatting. Left Comments Knee collapses inward on squatting. Knee Strength Knee Manual Muscle Testing Right Reason Not Measured WFL Left Reason Not Measured WFL Ankle/Foot Strength Ankle and Foot Manual Muscle Testing Right Dorsiflexion (L4) 5 Normal Plantarflexion (S1) 5 Normal Inversion 5 Normal Eversion (S1) 4 Good Left Reason Not Measured WFL PT-OP-Q Treatments Start: 02/11/19 14:59 Freq: Status: Active Protocol: Document 02/26/19 10:21 SA (Rec: 02/26/19 10:30 SA [email or web address]) Gym Equipment Shuttle Recovery Unilateral Squats Details R foot low on platform for full support Resistance 50#,37#,25# Shuttle Recovery Platform Stable Reps/Time 10, 8, 16 Bilateral Squats Details Feet low on platform for full support Resistance 50# Shuttle Recovery Platform Stable Reps/Time 15x 2 Therapeutic Exercises Supine Exercises INV/EVER/DF Side right Resistance AROM Reps/Minutes 10 x each calf stretch Supine Exercise Name Gastroc & Soleus stretch Comments R soleus is tighter than gastroc. Standing Exercises SLS Side right Resistance green foam Reps/Minutes 15-20 5x Comments focus on WBing through 1st met head Manual Therapy Treatment Soft Tissue Mobilization STM/friction massage Body Location R lateral ankle Mobilization Type Cross-Friction Myofascial Release Strumming Intensity/Depth Moderate Body Position Hooklying Comments well tolerated, passive gastroc/soleus stretching PT-OP-R Modalities Start: 02/11/19 14:59 Freq: Status: Active Protocol: Document 02/26/19 10:21 SA (Rec: 02/26/19 10:30 SA [email or web address]) Hot Pack/Cold Pack Treatment Cold Pack Location R ankle Patient Position Hooklying Treatment Duration (minutes) 10 Comments Cryocuff Ultrasound Therapy Treatment Pulsed US Treatment Duration (minutes) 8 Patient Position Hooklying Applicator Size (cm2) 2 Duty Cycle 50% Intensity Setting (w/cm2) 1.0 Comments R lateral ankle PT-OP-T Assessment and Plan Start: 02/11/19 14:59 Freq: Status: Active Protocol: Document 02/26/19 10:21 SA (Rec: 02/26/19 10:30 SA [email or web address]) Physical Therapy Assessment Assessment Summary Assessment Pt tolerated ther ex well today, added SLS to HEP with pt performing tripod weight shifitng. Encouraged to ice at home after exercise. Physical Therapy Plan Next Visit Focus/Plan Next Note Type Treatment Note Next Visit Plan Try K-tape for edema. Progress to R ankle: FROM, normal strength (ecc>conc, EV, core), normalize balance (SLS EC), normalize girth (K-tape, cryotherapy), HEP, return to running.
--- NOTE | 2019-02-28 13:40 | PT.OTN ---
Current Diagnoses Muscle weakness (generalized) (02/28/19) Other symptoms and signs involving the musculoskeletal system (02/28/19) Sprain of unspecified ligament of unspecified ankle, initial encounter (02/28/19) Other specified injury of muscle and tendon of long extensor muscle of toe at ankle and foot level, right foot, initial encounter (02/28/19) Physical Therapy Treatment Note PT-OP-A Visit Information Start: 02/11/19 14:59 Freq: Status: Active Protocol: Document 02/28/19 12:55 EA (Rec: 02/28/19 13:03 EA [id number]) Out-Patient Physical Therapy Visit Information Visit Information Visit Type Treatment Note Visit Start Time 12:15 Visit Stop Time 13:00 Total Visit Minutes 45 Visit Number 5 PT-OP-B Current Condition Start: 02/11/19 14:59 Freq: Status: Active Protocol: Document 02/12/19 08:15 LRN (Rec: 02/12/19 09:46 LRN [id number]) Current Condition History of Current Condition Onset Date December 30, 2018 Current Complaints R ankle stiffness and pain with inward rolling of ankle. History of Current Condition Pt reports 2.5 miles into a 10 mile run on a trail she rolled the R ankle (inversion direction) over a root and heard a pop and/or snap and had immediate swelling and bruising. She was unable to walk and was carried out by her son. She was given and aircast brace in the emergency room and wore it for 2 weeks, and then wrapped it for one week. She currently exercises with her kids and does cycling. At home she is bothered by stiffness in the R ankle in the morning and has difficulty with descending of stairs or descending with hiking. Pointing of her toes and turning her foot inwards hurts, but flexing up is not painful. Prior Treatments and Tests X-ray @ on 12/30/18. No fractures. Future Testing and Treatments Planned None Developmental History Developmental History Has rolled ankle before many times but nothing with injury. Treatment Goals Patient/Caregiver Goals Pt goal is to get it back to normal. Biking, running. Prior level: Run 20-25 miles/ week, more in the summer. Biked daily. Prior Functional Status Baseline Function- ADL's Independent Baseline Function- Mobility Independent Baseline Function- Gait Normal Current Functional Impairments (Reported) Functional Limitations- ADL's Limited with squatting, walking down stairs, standing and moving foot into inversion . Functional Limitations- Mobility/Gait None Personal Factors Other Personal Factors That May Effect Children at home: 16 yr old Therapy/Recovery daughter & two 15 yr olds. Back pain with prolonged standing. Latex allergy PT-OP-C Subjective Start: 02/11/19 14:59 Freq: Status: Active Protocol: Document 02/28/19 12:55 EA (Rec: 02/28/19 13:03 EA [id number]) OP-PT Subjective Patient Comments Patient Comments Pt reports she has been cycling and a bit of jogging; states feels tight in the morning. PT-OP-D Balance Start: 02/11/19 14:59 Freq: Status: Active Protocol: Document 02/12/19 08:15 LRN (Rec: 02/12/19 17:24 LRN [id number]) Balance Tests Single Limb Standing Single Limb- Right EO: 60+ secs, EC: 26 secs Single Limb- Left EO: 60+ secs, EC: 25 secs Other Other Balance Tests Performed SLS with head turns: 60+ sec' s bilaterally. PT-OP-F Manual Assessment Start: 02/11/19 14:59 Freq: Status: Active Protocol: Document 02/12/19 08:15 LRN (Rec: 02/12/19 17:24 LRN [id number]) Manual Assessments Soft Tissue Assessment Soft Tissue Mobility Assessment Mild swelling at the R lateral > medial ankle posteriorly, inferiorly and inferoanteriorly to the malleolus. Moderate palpation - Discomfort. Mild palpation - no pain. Joint Mobility Assessment Joint Mobility Assessment Increased AP glide of R Calcaneus on Talus. PT-OP-G Mobility & Gait Start: 02/11/19 14:59 Freq: Status: Active Protocol: Document 02/12/19 08:15 LRN (Rec: 02/12/19 17:24 LRN [id number]) OP Mobility Evaluation Functional Movements Squats Decreased on the R side. Running Assessment Deferred. PT-OP-H Neuro Start: 02/11/19 14:59 Freq: Status: Active Protocol: Document 02/12/19 08:15 LRN (Rec: 02/12/19 17:24 LRN [id number]) Sensation Evaluation Gross Sensation Gross Sensation WNL PT-OP-J Posture/Palpation/Skin Start: 02/11/19 14:59 Freq: Status: Active Protocol: Document 02/12/19 08:15 LRN (Rec: 02/12/19 17:24 LRN [id number]) Posture Evaluation Position Standing Evaluation View All positions Head/C-Spine Posture Neutral Position T-Spine Posture Neutral L-Spine Posture Increased Lordosis Shoulder Posture Neutral Pelvis Posture Anteriorly Tilted Weight Distribution Weight Shifted Left Knee Posture (L) Genu Valgus (R) Genu Valgus Ankle/Foot Posture (R) Calcaneal Inversion Foot Arch (L) High Arch Skin Assessment Edema Assessment Right Ankle Edema Type Non-Pitting Edema Degree 1+ Edema Appearance Puffy Subjective Edema Description Tightness Comments Edema at medial and lateral ankle. PT-OP-K Range of Motion Start: 02/11/19 14:59 Freq: Status: Active Protocol: Document 02/12/19 08:15 LRN (Rec: 02/12/19 17:24 LRN [id number]) Knee Goniometric Range of Motion Knee Right Knee ROM WFL Yes Hyper-Extension Active 3 Left Knee ROM WFL Yes Hyper-Extension Active 3 Ankle and Foot Goniometric Range of Motion Ankle and Foot Right Active Ankle/Foot ROM WFL No Testing Position Supine Dorsiflexion with Knee Flexed 10 Dorsiflexion with Knee Extended 4 Plantarflexion 52 Inversion 35 Eversion 0 Left Active Ankle/Foot ROM WFL Yes Testing Position Supine Dorsiflexion with Knee Flexed 9 Dorsiflexion with Knee Extended 7 Plantarflexion 58 Inversion 37 Eversion 10 Toe Range of Motion Toes ROM Limitations Comments None PT-OP-L Special Tests Start: 02/11/19 14:59 Freq: Status: Active Protocol: Document 02/12/19 08:15 LRN (Rec: 02/12/19 17:24 LRN [id number]) Special Tests Foot/Ankle Special Tests R Anterior Draw Test Results Increased mobility on lateral side PT-OP-M Strength Start: 02/11/19 14:59 Freq: Status: Active Protocol: Document 02/12/19 08:15 LRN (Rec: 02/12/19 17:24 LRN [id number]) Trunk Strength Trunk Manual Muscle Testing Testing Position Standing Core Stabilization Pt unable to maintain upright posturing with single leg standing. Hip Strength Hip Manual Muscle Testing Right Comments Knee collapses inward on squatting. Left Comments Knee collapses inward on squatting. Knee Strength Knee Manual Muscle Testing Right Reason Not Measured WFL Left Reason Not Measured WFL Ankle/Foot Strength Ankle and Foot Manual Muscle Testing Right Dorsiflexion (L4) 5 Normal Plantarflexion (S1) 5 Normal Inversion 5 Normal Eversion (S1) 4 Good Left Reason Not Measured WFL PT-OP-Q Treatments Start: 02/11/19 14:59 Freq: Status: Active Protocol: Document 02/28/19 12:55 EA (Rec: 02/28/19 13:03 EA [id number]) Cardio Equipment Treadmill Duration (Minutes) 6 Speed 3-5.5 Incline -3 to 12 Therapeutic Exercises Standing Exercises 4 Standing Exercise Name 4 step dwon and back up Reps/Minutes x 10 reps x 2 sets Comments no rails support 3 Standing Exercise Name Floor square: in and out lateral mobility Reps/Minutes x 4 laps 2 Standing Exercise Name BUSO side to side/up and down Reps/Minutes x 30 secs x 2 sets 1 Standing Exercise Name alteranate Single log hop: small Reps/Minutes x 30 ft x 2 laps SLS Side right Resistance green foam Reps/Minutes 15-20 5x Comments ball throws Manual Therapy Treatment Soft Tissue Mobilization STM/friction massage Body Location R lateral ankle Mobilization Type Cross-Friction Myofascial Release Strumming Intensity/Depth Moderate Body Position Hooklying Comments well tolerated, passive gastroc/soleus stretching PT-OP-R Modalities Start: 02/11/19 14:59 Freq: Status: Active Protocol: Document 02/28/19 12:55 EA (Rec: 02/28/19 13:03 EA [id number]) Hot Pack/Cold Pack Treatment Cold Pack Location R ankle Patient Position Hooklying Treatment Duration (minutes) 10 Comments Cryocuff PT-OP-T Assessment and Plan Start: 02/11/19 14:59 Freq: Status: Active Protocol: Document 02/28/19 12:55 EA (Rec: 02/28/19 13:03 EA [id number]) Physical Therapy Assessment Assessment Summary Assessment Running toeing of right foot still noted and increased hip hiking on right hip with step down 4 steps. Overall patient is progressing well. No pain complaint during exercises. Physical Therapy Plan Next Visit Focus/Plan Next Note Type Treatment Note Next Visit Plan Cont. strengthening, coordination and stretching.
--- NOTE | 2019-03-04 19:02 | PT.OTN ---
Current Diagnoses Muscle weakness (generalized) (03/04/19) Other symptoms and signs involving the musculoskeletal system (03/04/19) Sprain of unspecified ligament of unspecified ankle, initial encounter (03/04/19) Other specified injury of muscle and tendon of long extensor muscle of toe at ankle and foot level, right foot, initial encounter (03/04/19) Physical Therapy Treatment Note PT-OP-A Visit Information Start: 02/11/19 14:59 Freq: Status: Active Protocol: Document 03/04/19 16:53 [facility] (Rec: 03/04/19 19:02 [facility] [id number]) Out-Patient Physical Therapy Visit Information Visit Information Visit Type Treatment Note Visit Start Time 16:48 Visit Stop Time 17:41 Total Visit Minutes 53 Visit Number 6 Number of CERTIFIED PUBLIC ACCOUNTANT Visits 0 PT-OP-B Current Condition Start: 02/11/19 14:59 Freq: Status: Active Protocol: Document 02/12/19 08:15 [facility] (Rec: 02/12/19 09:46 LRN [id number]) Current Condition History of Current Condition Onset Date December 30, 2018 Current Complaints R ankle stiffness and pain with inward rolling of ankle. History of Current Condition Pt reports 2.5 miles into a 10 mile run on a trail she rolled the R ankle (inversion direction) over a root and heard a pop and/or snap and had immediate swelling and bruising. She was unable to walk and was carried out by her son. She was given and aircast brace in the emergency room and wore it for 2 weeks, and then wrapped it for one week. She currently exercises with her kids and does cycling. At home she is bothered by stiffness in the R ankle in the morning and has difficulty with descending of stairs or descending with hiking. Pointing of her toes and turning her foot inwards hurts, but flexing up is not painful. Prior Treatments and Tests X-ray @ on 12/30/18. No fractures. Future Testing and Treatments Planned None Developmental History Developmental History Has rolled ankle before many times but nothing with injury. Treatment Goals Patient/Caregiver Goals Pt goal is to get it back to normal. Biking, running. Prior level: Run 20-25 miles/ week, more in the summer. Biked daily. Prior Functional Status Baseline Function- ADL's Independent Baseline Function- Mobility Independent Baseline Function- Gait Normal Current Functional Impairments (Reported) Functional Limitations- ADL's Limited with squatting, walking down stairs, standing and moving foot into inversion . Functional Limitations- Mobility/Gait None Personal Factors Other Personal Factors That May Effect Children at home: 16 yr old Therapy/Recovery daughter & two 15 yr olds. Back pain with prolonged standing. Latex allergy PT-OP-C Subjective Start: 02/11/19 14:59 Freq: Status: Active Protocol: Document 03/04/19 16:53 [facility] (Rec: 03/04/19 19:02 LR [id number]) OP-PT Subjective Patient Comments Patient Comments Pt reports she did a 4 mile run w/ mult stops but it was quite painful. She didn't ice after. Reports some swelling after last session but it went down. PT-OP-D Balance Start: 02/11/19 14:59 Freq: Status: Active Protocol: Document 02/12/19 08:15 [facility] (Rec: 02/12/19 17:24 LRN [id number]) Balance Tests Single Limb Standing Single Limb- Right EO: 60+ secs, EC: 26 secs Single Limb- Left EO: 60+ secs, EC: 25 secs Other Other Balance Tests Performed SLS with head turns: 60+ sec' s bilaterally. PT-OP-F Manual Assessment Start: 02/11/19 14:59 Freq: Status: Active Protocol: Document 02/12/19 08:15 LRN (Rec: 02/12/19 17:24 LRN [id number]) Manual Assessments Soft Tissue Assessment Soft Tissue Mobility Assessment Mild swelling at the R lateral > medial ankle posteriorly, inferiorly and inferoanteriorly to the malleolus. Moderate palpation - Discomfort. Mild palpation - no pain. Joint Mobility Assessment Joint Mobility Assessment Increased AP glide of R Calcaneus on Talus. PT-OP-G Mobility & Gait Start: 02/11/19 14:59 Freq: Status: Active Protocol: Document 02/12/19 08:15 [facility] (Rec: 02/12/19 17:24 LRN [id number]) OP Mobility Evaluation Functional Movements Squats Decreased on the R side. Running Assessment Deferred. PT-OP-H Neuro Start: 02/11/19 14:59 Freq: Status: Active Protocol: Document 02/12/19 08:15 [facility] (Rec: 02/12/19 17:24 LRN [id number]) Sensation Evaluation Gross Sensation Gross Sensation WNL PT-OP-J Posture/Palpation/Skin Start: 02/11/19 14:59 Freq: Status: Active Protocol: Document 02/12/19 08:15 LRN (Rec: 02/12/19 17:24 LRN [id number]) Posture Evaluation Position Standing Evaluation View All positions Head/C-Spine Posture Neutral Position T-Spine Posture Neutral L-Spine Posture Increased Lordosis Shoulder Posture Neutral Pelvis Posture Anteriorly Tilted Weight Distribution Weight Shifted Left Knee Posture (L) Genu Valgus (R) Genu Valgus Ankle/Foot Posture (R) Calcaneal Inversion Foot Arch (L) High Arch Skin Assessment Edema Assessment Right Ankle Edema Type Non-Pitting Edema Degree 1+ Edema Appearance Puffy Subjective Edema Description Tightness Comments Edema at medial and lateral ankle. PT-OP-K Range of Motion Start: 02/11/19 14:59 Freq: Status: Active Protocol: Document 02/12/19 08:15 LR[facility] (Rec: 02/12/19 17:24 LRN [id number]) Knee Goniometric Range of Motion Knee Right Knee ROM WFL Yes Hyper-Extension Active 3 Left Knee ROM WFL Yes Hyper-Extension Active 3 Ankle and Foot Goniometric Range of Motion Ankle and Foot Right Active Ankle/Foot ROM WFL No Testing Position Supine Dorsiflexion with Knee Flexed 10 Dorsiflexion with Knee Extended 4 Plantarflexion 52 Inversion 35 Eversion 0 Left Active Ankle/Foot ROM WFL Yes Testing Position Supine Dorsiflexion with Knee Flexed 9 Dorsiflexion with Knee Extended 7 Plantarflexion 58 Inversion 37 Eversion 10 Toe Range of Motion Toes ROM Limitations Comments None PT-OP-L Special Tests Start: 02/11/19 14:59 Freq: Status: Active Protocol: Document 02/12/19 08:15 LRN (Rec: 02/12/19 17:24 LRN [id number]) Special Tests Foot/Ankle Special Tests R Anterior Draw Test Results Increased mobility on lateral side PT-OP-M Strength Start: 02/11/19 14:59 Freq: Status: Active Protocol: Document 02/12/19 08:15 LRN (Rec: 02/12/19 17:24 LRN [id number]) Trunk Strength Trunk Manual Muscle Testing Testing Position Standing Core Stabilization Pt unable to maintain upright posturing with single leg standing. Hip Strength Hip Manual Muscle Testing Right Comments Knee collapses inward on squatting. Left Comments Knee collapses inward on squatting. Knee Strength Knee Manual Muscle Testing Right Reason Not Measured WFL Left Reason Not Measured WFL Ankle/Foot Strength Ankle and Foot Manual Muscle Testing Right Dorsiflexion (L4) 5 Normal Plantarflexion (S1) 5 Normal Inversion 5 Normal Eversion (S1) 4 Good Left Reason Not Measured WFL PT-OP-Q Treatments Start: 02/11/19 14:59 Freq: Status: Active Protocol: Document 03/04/19 16:53 [facility] (Rec: 03/04/19 19:02 [facility] [id number]) Cardio Equipment Treadmill Duration (Minutes) 7 Speed 2.5 Incline 2-9 Therapeutic Exercises Standing Exercises stretch Standing Exercise Name gastroc & soleus stretching Reps/Minutes 30 sec ea Manual Therapy Treatment Soft Tissue Mobilization gastroc Body Location med border & into achilles Mobilization Type Rolling Intensity/Depth Moderate Body Position Supine Joint Mobilizations distal tibfib Joint tibia Direction post FM Body Position Standing talus Joint R Direction distraction, AP & med FM Comments supine & standing calcaneus Joint R Direction distraction & lat glide & gappingFM PT-OP-R Modalities Start: 02/11/19 14:59 Freq: Status: Active Protocol: Document 03/04/19 16:53 [facility] (Rec: 03/04/19 19:02 [facility] [id number]) Hot Pack/Cold Pack Treatment Cold Pack Location R ankle Patient Position Hooklying Treatment Duration (minutes) 10 Comments Cryocuff PT-OP-T Assessment and Plan Start: 02/11/19 14:59 Freq: Status: Active Protocol: Document 03/04/19 16:53 [facility] (Rec: 03/04/19 19:02 [facility] [id number]) Physical Therapy Assessment Goals Four Impairment LEFS score 67 of 80 (83.75 of maximal function) Longterm Goal (LTG) LEFS score of 80 (100% of maximal function) to improve her functional mobility and quality of life. LTG Duration 03/26/19 Three Impairment Difficulty ambulating down stairs due to pain Short Term Goal (STG) Pt will demonstrate full R ankle AROM without pain to improve functional ability ( stair ambulation) without pain . STG Duration 02/26/19 Longterm Goal (LTG) Pt will be independent in ECC strengthening ex's for a home program and will be able to return to prior level of function of ambulating down stairs without pain. LTG Duration 03/26/19 Two Impairment Pt is not able to tolerate running due to R ankle instability and pain. Short Term Goal (STG) Pt will be able to single leg stand with eyes closed for at least 60 secs without loss of balance. STG Duration 02/26/19 Hammer Heater Goal (LTG) Pt will be able to return to running on level surfaces without pain and mild even surfaces minimal pain using a soft ankle brace. LTG Duration 03/26/19 One Impairment Lacks independent HEP Longterm Goal (LTG) Pt will be independent on a self care HEP. LTG Duration 03/26/19 Assessment Summary Assessment Pt had dec pain with standing knee bends (WB DF) after mobilizations. She appears to be significantly limited by talar gliding & soft tissue mobility of gastroc/soleus complex & achilles tendon. Physical Therapy Plan Frequency and Duration Frequency of Treatment 2x/Week Duration of Treatment 6 weeks Plan of Care Start Date 02/12/19 Plan of Care End Date 03/26/19 Next Visit Focus/Plan Next Note Type Treatment Note Next Visit Plan Cont to work on joint mobility to improve ability to DF for decent of hills & work on strength in standing for progression back to running.
--- NOTE | 2019-03-06 12:09 | PT.OTN ---
Current Diagnoses Muscle weakness (generalized) (03/06/19) Other symptoms and signs involving the musculoskeletal system (03/06/19) Sprain of unspecified ligament of unspecified ankle, initial encounter (03/06/19) Other specified injury of muscle and tendon of long extensor muscle of toe at ankle and foot level, right foot, initial encounter (03/06/19) Physical Therapy Treatment Note PT-OP-A Visit Information Start: 02/11/19 14:59 Freq: Status: Active Protocol: Document 03/06/19 10:24 EA (Rec: 03/06/19 10:32 EA [id number]) Out-Patient Physical Therapy Visit Information Visit Information Visit Type Treatment Note Visit Start Time 09:00 Visit Stop Time 09:54 Total Visit Minutes 54 Visit Number 7 PT-OP-B Current Condition Start: 02/11/19 14:59 Freq: Status: Active Protocol: Document 02/12/19 08:15 LRN (Rec: 02/12/19 09:46 LRN [id number]) Current Condition History of Current Condition Onset Date December 30, 2018 Current Complaints R ankle stiffness and pain with inward rolling of ankle. History of Current Condition Pt reports 2.5 miles into a 10 mile run on a trail she rolled the R ankle (inversion direction) over a root and heard a pop and/or snap and had immediate swelling and bruising. She was unable to walk and was carried out by her son. She was given and aircast brace in the emergency room and wore it for 2 weeks, and then wrapped it for one week. She currently exercises with her kids and does cycling. At home she is bothered by stiffness in the R ankle in the morning and has difficulty with descending of stairs or descending with hiking. Pointing of her toes and turning her foot inwards hurts, but flexing up is not painful. Prior Treatments and Tests X-ray @ on 12/30/18. No fractures. Future Testing and Treatments Planned None Developmental History Developmental History Has rolled ankle before many times but nothing with injury. Treatment Goals Patient/Caregiver Goals Pt goal is to get it back to normal. Biking, running. Prior level: Run 20-25 miles/ week, more in the summer. Biked daily. Prior Functional Status Baseline Function- ADL's Independent Baseline Function- Mobility Independent Baseline Function- Gait Normal Current Functional Impairments (Reported) Functional Limitations- ADL's Limited with squatting, walking down stairs, standing and moving foot into inversion . Functional Limitations- Mobility/Gait None Personal Factors Other Personal Factors That May Effect Children at home: 16 yr old Therapy/Recovery daughter & two 15 yr olds. Back pain with prolonged standing. Latex allergy PT-OP-C Subjective Start: 02/11/19 14:59 Freq: Status: Active Protocol: Document 03/06/19 10:24 EA (Rec: 03/06/19 10:32 EA [id number]) OP-PT Subjective Patient Comments Patient Comments Pt reports had a good strength training last night; denies increased foot pain but tight. PT-OP-D Balance Start: 02/11/19 14:59 Freq: Status: Active Protocol: Document 02/12/19 08:15 LRN (Rec: 02/12/19 17:24 LRN [id number]) Balance Tests Single Limb Standing Single Limb- Right EO: 60+ secs, EC: 26 secs Single Limb- Left EO: 60+ secs, EC: 25 secs Other Other Balance Tests Performed SLS with head turns: 60+ sec' s bilaterally. PT-OP-F Manual Assessment Start: 02/11/19 14:59 Freq: Status: Active Protocol: Document 02/12/19 08:15 LRN (Rec: 02/12/19 17:24 LRN [id number]) Manual Assessments Soft Tissue Assessment Soft Tissue Mobility Assessment Mild swelling at the R lateral > medial ankle posteriorly, inferiorly and inferoanteriorly to the malleolus. Moderate palpation - Discomfort. Mild palpation - no pain. Joint Mobility Assessment Joint Mobility Assessment Increased AP glide of R Calcaneus on Talus. PT-OP-G Mobility & Gait Start: 02/11/19 14:59 Freq: Status: Active Protocol: Document 02/12/19 08:15 LRN (Rec: 02/12/19 17:24 LRN [id number]) OP Mobility Evaluation Functional Movements Squats Decreased on the R side. Running Assessment Deferred. PT-OP-H Neuro Start: 02/11/19 14:59 Freq: Status: Active Protocol: Document 02/12/19 08:15 LRN (Rec: 02/12/19 17:24 LRN [id number]) Sensation Evaluation Gross Sensation Gross Sensation WNL PT-OP-J Posture/Palpation/Skin Start: 02/11/19 14:59 Freq: Status: Active Protocol: Document 02/12/19 08:15 LRN (Rec: 02/12/19 17:24 LRN [id number]) Posture Evaluation Position Standing Evaluation View All positions Head/C-Spine Posture Neutral Position T-Spine Posture Neutral L-Spine Posture Increased Lordosis Shoulder Posture Neutral Pelvis Posture Anteriorly Tilted Weight Distribution Weight Shifted Left Knee Posture (L) Genu Valgus (R) Genu Valgus Ankle/Foot Posture (R) Calcaneal Inversion Foot Arch (L) High Arch Skin Assessment Edema Assessment Right Ankle Edema Type Non-Pitting Edema Degree 1+ Edema Appearance Puffy Subjective Edema Description Tightness Comments Edema at medial and lateral ankle. PT-OP-K Range of Motion Start: 02/11/19 14:59 Freq: Status: Active Protocol: Document 02/12/19 08:15 LRN (Rec: 02/12/19 17:24 LRN [id number]) Knee Goniometric Range of Motion Knee Right Knee ROM WFL Yes Hyper-Extension Active 3 Left Knee ROM WFL Yes Hyper-Extension Active 3 Ankle and Foot Goniometric Range of Motion Ankle and Foot Right Active Ankle/Foot ROM WFL No Testing Position Supine Dorsiflexion with Knee Flexed 10 Dorsiflexion with Knee Extended 4 Plantarflexion 52 Inversion 35 Eversion 0 Left Active Ankle/Foot ROM WFL Yes Testing Position Supine Dorsiflexion with Knee Flexed 9 Dorsiflexion with Knee Extended 7 Plantarflexion 58 Inversion 37 Eversion 10 Toe Range of Motion Toes ROM Limitations Comments None PT-OP-L Special Tests Start: 02/11/19 14:59 Freq: Status: Active Protocol: Document 02/12/19 08:15 LRN (Rec: 02/12/19 17:24 LRN [id number]) Special Tests Foot/Ankle Special Tests R Anterior Draw Test Results Increased mobility on lateral side PT-OP-M Strength Start: 02/11/19 14:59 Freq: Status: Active Protocol: Document 02/12/19 08:15 LRN (Rec: 02/12/19 17:24 LRN [id number]) Trunk Strength Trunk Manual Muscle Testing Testing Position Standing Core Stabilization Pt unable to maintain upright posturing with single leg standing. Hip Strength Hip Manual Muscle Testing Right Comments Knee collapses inward on squatting. Left Comments Knee collapses inward on squatting. Knee Strength Knee Manual Muscle Testing Right Reason Not Measured WFL Left Reason Not Measured WFL Ankle/Foot Strength Ankle and Foot Manual Muscle Testing Right Dorsiflexion (L4) 5 Normal Plantarflexion (S1) 5 Normal Inversion 5 Normal Eversion (S1) 4 Good Left Reason Not Measured WFL PT-OP-Q Treatments Start: 02/11/19 14:59 Freq: Status: Active Protocol: Document 03/06/19 10:24 EA (Rec: 03/06/19 10:32 EA [id number]) Cardio Equipment Treadmill Duration (Minutes) 6 Speed 3-5.5 Incline -3 to 12 Therapeutic Exercises Standing Exercises 8 Standing Exercise Name BUSO squat Reps/Minutes x 12 reps 7 Standing Exercise Name Single leg hopping Reps/Minutes x 5 reps min/mod distance 6 Standing Exercise Name FWD/BWD lunges with trunk med ball rotation Reps/Minutes x 12 ft x 2 laps 5 Standing Exercise Name Floor squares; Coordination and proprioception exercises Reps/Minutes x 3 mins stretch Standing Exercise Name gastroc & soleus stretching Reps/Minutes 30 sec ea 4 Standing Exercise Name 4 step dwon and back up Reps/Minutes x 10 reps x 2 sets Comments no rails support 2 Standing Exercise Name BUSO side to side/up and down Reps/Minutes x 30 secs x 2 sets 1 Standing Exercise Name alteranate Single log hop: small Reps/Minutes x 30 ft x 2 laps SLS Side right Resistance green foam Reps/Minutes 15-20 5x Comments ball throws PT-OP-R Modalities Start: 02/11/19 14:59 Freq: Status: Active Protocol: Document 03/06/19 10:24 EA (Rec: 03/06/19 10:32 EA [id number]) Hot Pack/Cold Pack Treatment Cold Pack Location R ankle Patient Position Hooklying Treatment Duration (minutes) 12 Comments Cryocuff PT-OP-T Assessment and Plan Start: 02/11/19 14:59 Freq: Status: Active Protocol: Document 03/06/19 10:24 EA (Rec: 03/06/19 10:32 EA [id number]) Physical Therapy Assessment Assessment Summary Assessment Patient shows good feet coordination and proprioception while blocking vision. Overall patient cont to show improve recovery. Recommends to cont. soleous muscle stretch at home. Physical Therapy Plan Next Visit Focus/Plan Next Note Type Treatment Note Next Visit Plan Advance as tolerated
--- NOTE | 2019-03-11 09:35 | PT.OTN ---
Current Diagnoses Muscle weakness (generalized) (03/11/19) Other symptoms and signs involving the musculoskeletal system (03/11/19) Sprain of unspecified ligament of unspecified ankle, initial encounter (03/11/19) Other specified injury of muscle and tendon of long extensor muscle of toe at ankle and foot level, right foot, initial encounter (03/11/19) Physical Therapy Treatment Note PT-OP-A Visit Information Start: 02/11/19 14:59 Freq: Status: Active Protocol: Document 03/11/19 08:59 EA (Rec: 03/11/19 09:03 EA [id number]) Out-Patient Physical Therapy Visit Information Visit Information Visit Type Treatment Note Visit Start Time 08:15 Visit Stop Time 09:08 Total Visit Minutes 53 Visit Number 8 PT-OP-B Current Condition Start: 02/11/19 14:59 Freq: Status: Active Protocol: Document 02/12/19 08:15 LRN (Rec: 02/12/19 09:46 LRN [id number]) Current Condition History of Current Condition Onset Date December 30, 2018 Current Complaints R ankle stiffness and pain with inward rolling of ankle. History of Current Condition Pt reports 2.5 miles into a 10 mile run on a trail she rolled the R ankle (inversion direction) over a root and heard a pop and/or snap and had immediate swelling and bruising. She was unable to walk and was carried out by her son. She was given and aircast brace in the emergency room and wore it for 2 weeks, and then wrapped it for one week. She currently exercises with her kids and does cycling. At home she is bothered by stiffness in the R ankle in the morning and has difficulty with descending of stairs or descending with hiking. Pointing of her toes and turning her foot inwards hurts, but flexing up is not painful. Prior Treatments and Tests X-ray @ on 12/30/18. No fractures. Future Testing and Treatments Planned None Developmental History Developmental History Has rolled ankle before many times but nothing with injury. Treatment Goals Patient/Caregiver Goals Pt goal is to get it back to normal. Biking, running. Prior level: Run 20-25 miles/ week, more in the summer. Biked daily. Prior Functional Status Baseline Function- ADL's Independent Baseline Function- Mobility Independent Baseline Function- Gait Normal Current Functional Impairments (Reported) Functional Limitations- ADL's Limited with squatting, walking down stairs, standing and moving foot into inversion . Functional Limitations- Mobility/Gait None Personal Factors Other Personal Factors That May Effect Children at home: 16 yr old Therapy/Recovery daughter & two 15 yr olds. Back pain with prolonged standing. Latex allergy PT-OP-C Subjective Start: 02/11/19 14:59 Freq: Status: Active Protocol: Document 03/11/19 08:59 EA (Rec: 03/11/19 09:03 EA [id number]) OP-PT Subjective Patient Comments Patient Comments Patient reports had work out last night; states ankle is min sore but no pain. Patient Reported Progress Improving PT-OP-D Balance Start: 02/11/19 14:59 Freq: Status: Active Protocol: Document 02/12/19 08:15 LRN (Rec: 02/12/19 17:24 LRN [id number]) Balance Tests Single Limb Standing Single Limb- Right EO: 60+ secs, EC: 26 secs Single Limb- Left EO: 60+ secs, EC: 25 secs Other Other Balance Tests Performed SLS with head turns: 60+ sec' s bilaterally. PT-OP-F Manual Assessment Start: 02/11/19 14:59 Freq: Status: Active Protocol: Document 02/12/19 08:15 LRN (Rec: 02/12/19 17:24 LRN [id number]) Manual Assessments Soft Tissue Assessment Soft Tissue Mobility Assessment Mild swelling at the R lateral > medial ankle posteriorly, inferiorly and inferoanteriorly to the malleolus. Moderate palpation - Discomfort. Mild palpation - no pain. Joint Mobility Assessment Joint Mobility Assessment Increased AP glide of R Calcaneus on Talus. PT-OP-G Mobility & Gait Start: 02/11/19 14:59 Freq: Status: Active Protocol: Document 02/12/19 08:15 LRN (Rec: 02/12/19 17:24 LRN [id number]) OP Mobility Evaluation Functional Movements Squats Decreased on the R side. Running Assessment Deferred. PT-OP-H Neuro Start: 02/11/19 14:59 Freq: Status: Active Protocol: Document 02/12/19 08:15 LRN (Rec: 02/12/19 17:24 LRN [id number]) Sensation Evaluation Gross Sensation Gross Sensation WNL PT-OP-J Posture/Palpation/Skin Start: 02/11/19 14:59 Freq: Status: Active Protocol: Document 02/12/19 08:15 LRN (Rec: 02/12/19 17:24 LRN [id number]) Posture Evaluation Position Standing Evaluation View All positions Head/C-Spine Posture Neutral Position T-Spine Posture Neutral L-Spine Posture Increased Lordosis Shoulder Posture Neutral Pelvis Posture Anteriorly Tilted Weight Distribution Weight Shifted Left Knee Posture (L) Genu Valgus (R) Genu Valgus Ankle/Foot Posture (R) Calcaneal Inversion Foot Arch (L) High Arch Skin Assessment Edema Assessment Right Ankle Edema Type Non-Pitting Edema Degree 1+ Edema Appearance Puffy Subjective Edema Description Tightness Comments Edema at medial and lateral ankle. PT-OP-K Range of Motion Start: 02/11/19 14:59 Freq: Status: Active Protocol: Document 02/12/19 08:15 LRN (Rec: 02/12/19 17:24 LRN [id number]) Knee Goniometric Range of Motion Knee Right Knee ROM WFL Yes Hyper-Extension Active 3 Left Knee ROM WFL Yes Hyper-Extension Active 3 Ankle and Foot Goniometric Range of Motion Ankle and Foot Right Active Ankle/Foot ROM WFL No Testing Position Supine Dorsiflexion with Knee Flexed 10 Dorsiflexion with Knee Extended 4 Plantarflexion 52 Inversion 35 Eversion 0 Left Active Ankle/Foot ROM WFL Yes Testing Position Supine Dorsiflexion with Knee Flexed 9 Dorsiflexion with Knee Extended 7 Plantarflexion 58 Inversion 37 Eversion 10 Toe Range of Motion Toes ROM Limitations Comments None PT-OP-L Special Tests Start: 02/11/19 14:59 Freq: Status: Active Protocol: Document 02/12/19 08:15 LRN (Rec: 02/12/19 17:24 LRN [id number]) Special Tests Foot/Ankle Special Tests R Anterior Draw Test Results Increased mobility on lateral side PT-OP-M Strength Start: 02/11/19 14:59 Freq: Status: Active Protocol: Document 02/12/19 08:15 LRN (Rec: 02/12/19 17:24 LRN [id number]) Trunk Strength Trunk Manual Muscle Testing Testing Position Standing Core Stabilization Pt unable to maintain upright posturing with single leg standing. Hip Strength Hip Manual Muscle Testing Right Comments Knee collapses inward on squatting. Left Comments Knee collapses inward on squatting. Knee Strength Knee Manual Muscle Testing Right Reason Not Measured WFL Left Reason Not Measured WFL Ankle/Foot Strength Ankle and Foot Manual Muscle Testing Right Dorsiflexion (L4) 5 Normal Plantarflexion (S1) 5 Normal Inversion 5 Normal Eversion (S1) 4 Good Left Reason Not Measured WFL PT-OP-Q Treatments Start: 02/11/19 14:59 Freq: Status: Active Protocol: Document 03/11/19 08:59 EA (Rec: 03/11/19 09:03 EA [id number]) Cardio Equipment Bicycle (Upright) Duration (Minutes) 5 Resistance 5 Gym Equipment Sport Cord 1 Exercise Details Fwd ski, side squats, bwd steping Comments SLS to R (multiple sides) Therapeutic Exercises Supine Exercises INV/EVER/DF Side right Resistance Green Reps/Minutes 10 x each calf stretch Supine Exercise Name Gastroc & Soleus stretch Comments R soleus is tighter than gastroc. Standing Exercises 8 Standing Exercise Name BUSO squat Reps/Minutes x 12 reps 7 Standing Exercise Name Single leg hopping Reps/Minutes x 5 reps min/mod distance 6 Standing Exercise Name FWD/BWD lunges with trunk med ball rotation Reps/Minutes x 12 ft x 2 laps 5 Standing Exercise Name Floor squares; Coordination and proprioception exercises Reps/Minutes x 3 mins stretch Standing Exercise Name gastroc & soleus stretching Reps/Minutes 30 sec ea 4 Standing Exercise Name 4 step dwon and back up Reps/Minutes x 10 reps x 2 sets Comments no rails support 2 Standing Exercise Name BUSO side to side/up and down Reps/Minutes x 30 secs x 2 sets 1 Standing Exercise Name alteranate Single log hop: small Reps/Minutes x 30 ft x 2 laps SLS Side right Resistance green foam Reps/Minutes 15-20 5x Comments ball throws PT-OP-R Modalities Start: 02/11/19 14:59 Freq: Status: Active Protocol: Document 03/11/19 08:59 EA (Rec: 03/11/19 09:03 EA [id number]) Hot Pack/Cold Pack Treatment Cold Pack Location R ankle Patient Position Hooklying Treatment Duration (minutes) 13 Comments Cryocuff PT-OP-T Assessment and Plan Start: 02/11/19 14:59 Freq: Status: Active Protocol: Document 03/11/19 08:59 CALLUM (Rec: 03/11/19 09:03 EA [id number]) Physical Therapy Assessment Assessment Summary Assessment Tolerated treatment very well. Patient cont. to progress. Physical Therapy Plan Next Visit Focus/Plan Next Note Type Treatment Note Next Visit Plan Advance as tolerated
--- NOTE | 2019-03-13 12:04 | PT.OTN ---
Current Diagnoses Muscle weakness (generalized) (03/13/19) Other symptoms and signs involving the musculoskeletal system (03/13/19) Sprain of unspecified ligament of unspecified ankle, initial encounter (03/13/19) Other specified injury of muscle and tendon of long extensor muscle of toe at ankle and foot level, right foot, initial encounter (03/13/19) Physical Therapy Treatment Note PT-OP-A Visit Information Start: 02/11/19 14:59 Freq: Status: Active Protocol: Document 03/13/19 08:59 EA (Rec: 03/13/19 09:39 EA [id number]) Out-Patient Physical Therapy Visit Information Visit Information Visit Type Treatment Note Visit Start Time 08:15 Visit Stop Time 09:08 Total Visit Minutes 53 Visit Number 9 PT-OP-B Current Condition Start: 02/11/19 14:59 Freq: Status: Active Protocol: Document 02/12/19 08:15 LRN (Rec: 02/12/19 09:46 LRN [id number]) Current Condition History of Current Condition Onset Date December 30, 2018 Current Complaints R ankle stiffness and pain with inward rolling of ankle. History of Current Condition Pt reports 2.5 miles into a 10 mile run on a trail she rolled the R ankle (inversion direction) over a root and heard a pop and/or snap and had immediate swelling and bruising. She was unable to walk and was carried out by her son. She was given and aircast brace in the emergency room and wore it for 2 weeks, and then wrapped it for one week. She currently exercises with her kids and does cycling. At home she is bothered by stiffness in the R ankle in the morning and has difficulty with descending of stairs or descending with hiking. Pointing of her toes and turning her foot inwards hurts, but flexing up is not painful. Prior Treatments and Tests X-ray @ on 12/30/18. No fractures. Future Testing and Treatments Planned None Developmental History Developmental History Has rolled ankle before many times but nothing with injury. Treatment Goals Patient/Caregiver Goals Pt goal is to get it back to normal. Biking, running. Prior level: Run 20-25 miles/ week, more in the summer. Biked daily. Prior Functional Status Baseline Function- ADL's Independent Baseline Function- Mobility Independent Baseline Function- Gait Normal Current Functional Impairments (Reported) Functional Limitations- ADL's Limited with squatting, walking down stairs, standing and moving foot into inversion . Functional Limitations- Mobility/Gait None Personal Factors Other Personal Factors That May Effect Children at home: 16 yr old Therapy/Recovery daughter & two 15 yr olds. Back pain with prolonged standing. Latex allergy PT-OP-C Subjective Start: 02/11/19 14:59 Freq: Status: Active Protocol: Document 03/13/19 08:59 EA (Rec: 03/13/19 09:39 EA [id number]) OP-PT Subjective Patient Comments Patient Comments Pt reports both calves were sore after last session; states today just finished an hour cycling. Patient Reported Progress Improving PT-OP-D Balance Start: 02/11/19 14:59 Freq: Status: Active Protocol: Document 02/12/19 08:15 LRN (Rec: 02/12/19 17:24 LRN [id number]) Balance Tests Single Limb Standing Single Limb- Right EO: 60+ secs, EC: 26 secs Single Limb- Left EO: 60+ secs, EC: 25 secs Other Other Balance Tests Performed SLS with head turns: 60+ sec' s bilaterally. PT-OP-F Manual Assessment Start: 02/11/19 14:59 Freq: Status: Active Protocol: Document 02/12/19 08:15 LRN (Rec: 02/12/19 17:24 LRN [id number]) Manual Assessments Soft Tissue Assessment Soft Tissue Mobility Assessment Mild swelling at the R lateral > medial ankle posteriorly, inferiorly and inferoanteriorly to the malleolus. Moderate palpation - Discomfort. Mild palpation - no pain. Joint Mobility Assessment Joint Mobility Assessment Increased AP glide of R Calcaneus on Talus. PT-OP-G Mobility & Gait Start: 02/11/19 14:59 Freq: Status: Active Protocol: Document 02/12/19 08:15 LRN (Rec: 02/12/19 17:24 LRN [id number]) OP Mobility Evaluation Functional Movements Squats Decreased on the R side. Running Assessment Deferred. PT-OP-H Neuro Start: 02/11/19 14:59 Freq: Status: Active Protocol: Document 02/12/19 08:15 LRN (Rec: 02/12/19 17:24 LRN [id number]) Sensation Evaluation Gross Sensation Gross Sensation WNL PT-OP-J Posture/Palpation/Skin Start: 02/11/19 14:59 Freq: Status: Active Protocol: Document 02/12/19 08:15 LRN (Rec: 02/12/19 17:24 LRN [id number]) Posture Evaluation Position Standing Evaluation View All positions Head/C-Spine Posture Neutral Position T-Spine Posture Neutral L-Spine Posture Increased Lordosis Shoulder Posture Neutral Pelvis Posture Anteriorly Tilted Weight Distribution Weight Shifted Left Knee Posture (L) Genu Valgus (R) Genu Valgus Ankle/Foot Posture (R) Calcaneal Inversion Foot Arch (L) High Arch Skin Assessment Edema Assessment Right Ankle Edema Type Non-Pitting Edema Degree 1+ Edema Appearance Puffy Subjective Edema Description Tightness Comments Edema at medial and lateral ankle. PT-OP-K Range of Motion Start: 02/11/19 14:59 Freq: Status: Active Protocol: Document 02/12/19 08:15 LRN (Rec: 02/12/19 17:24 LRN [id number]) Knee Goniometric Range of Motion Knee Right Knee ROM WFL Yes Hyper-Extension Active 3 Left Knee ROM WFL Yes Hyper-Extension Active 3 Ankle and Foot Goniometric Range of Motion Ankle and Foot Right Active Ankle/Foot ROM WFL No Testing Position Supine Dorsiflexion with Knee Flexed 10 Dorsiflexion with Knee Extended 4 Plantarflexion 52 Inversion 35 Eversion 0 Left Active Ankle/Foot ROM WFL Yes Testing Position Supine Dorsiflexion with Knee Flexed 9 Dorsiflexion with Knee Extended 7 Plantarflexion 58 Inversion 37 Eversion 10 Toe Range of Motion Toes ROM Limitations Comments None PT-OP-L Special Tests Start: 02/11/19 14:59 Freq: Status: Active Protocol: Document 02/12/19 08:15 LRN (Rec: 02/12/19 17:24 LRN [id number]) Special Tests Foot/Ankle Special Tests R Anterior Draw Test Results Increased mobility on lateral side PT-OP-M Strength Start: 02/11/19 14:59 Freq: Status: Active Protocol: Document 02/12/19 08:15 LRN (Rec: 02/12/19 17:24 LRN [id number]) Trunk Strength Trunk Manual Muscle Testing Testing Position Standing Core Stabilization Pt unable to maintain upright posturing with single leg standing. Hip Strength Hip Manual Muscle Testing Right Comments Knee collapses inward on squatting. Left Comments Knee collapses inward on squatting. Knee Strength Knee Manual Muscle Testing Right Reason Not Measured WFL Left Reason Not Measured WFL Ankle/Foot Strength Ankle and Foot Manual Muscle Testing Right Dorsiflexion (L4) 5 Normal Plantarflexion (S1) 5 Normal Inversion 5 Normal Eversion (S1) 4 Good Left Reason Not Measured WFL PT-OP-Q Treatments Start: 02/11/19 14:59 Freq: Status: Active Protocol: Document 03/13/19 08:59 EA (Rec: 03/13/19 09:39 EA [id number]) Gym Equipment Sport Cord 1 Exercise Details Fwd ski, side squats, bwd steping Comments SLS w/ blue foam to R ( multiple sides) Therapeutic Exercises Standing Exercises 8 Standing Exercise Name BUSO squat Reps/Minutes x 12 reps 7 Standing Exercise Name Single leg hopping Reps/Minutes x 5 reps min/mod distance 6 Standing Exercise Name FWD/BWD lunges with trunk med ball rotation Reps/Minutes x 12 ft x 2 laps 5 Standing Exercise Name Floor squares; Coordination and proprioception exercises Reps/Minutes x 3 mins stretch Standing Exercise Name gastroc & soleus stretching Reps/Minutes 30 sec ea 4 Standing Exercise Name 4 step dwon and back up Reps/Minutes x 10 reps x 2 sets Comments no rails support 3 Standing Exercise Name Floor square: in and out lateral mobility Reps/Minutes x 4 laps 2 Standing Exercise Name BUSO side to side/up and down Reps/Minutes x 30 secs x 2 sets 1 Standing Exercise Name alteranate Single log hop: small Reps/Minutes x 30 ft x 2 laps SLS Side right Resistance green foam Reps/Minutes 15-20 5x Comments ball throws PT-OP-R Modalities Start: 02/11/19 14:59 Freq: Status: Active Protocol: Document 03/13/19 08:59 EA (Rec: 03/13/19 09:39 EA [id number]) Hot Pack/Cold Pack Treatment Cold Pack Location R ankle Patient Position Hooklying Treatment Duration (minutes) 13 Comments Cryocuff PT-OP-T Assessment and Plan Start: 02/11/19 14:59 Freq: Status: Active Protocol: Document 03/13/19 08:59 EA (Rec: 03/13/19 09:39 EA [id number]) Physical Therapy Assessment Assessment Summary Assessment Tyrese shows great improvement with her foot coordination and agility exercises. She did not complaint discomfort or ankle pain during and after therex even with high single hopped. She is almost full recovered at this time. Physical Therapy Plan Next Visit Focus/Plan Next Note Type Treatment Note Next Visit Plan discharge if no more complaint or if goals reached.
--- NOTE | 2019-03-18 12:12 | PT.OTN ---
Current Diagnoses Muscle weakness (generalized) (03/18/19) Other symptoms and signs involving the musculoskeletal system (03/18/19) Sprain of unspecified ligament of unspecified ankle, initial encounter (03/18/19) Other specified injury of muscle and tendon of long extensor muscle of toe at ankle and foot level, right foot, initial encounter (03/18/19) Physical Therapy Treatment Note PT-OP-A Visit Information Start: 02/11/19 14:59 Freq: Status: Active Protocol: Document 03/18/19 08:56 EA (Rec: 03/18/19 09:01 EA [id number]) Out-Patient Physical Therapy Visit Information Visit Information Visit Type Treatment Note Visit Start Time 08:15 Visit Stop Time 08:58 Total Visit Minutes 38 Visit Number 10 PT-OP-B Current Condition Start: 02/11/19 14:59 Freq: Status: Active Protocol: Document 02/12/19 08:15 LRN (Rec: 02/12/19 09:46 LRN [id number]) Current Condition History of Current Condition Onset Date December 30, 2018 Current Complaints R ankle stiffness and pain with inward rolling of ankle. History of Current Condition Pt reports 2.5 miles into a 10 mile run on a trail she rolled the R ankle (inversion direction) over a root and heard a pop and/or snap and had immediate swelling and bruising. She was unable to walk and was carried out by her son. She was given and aircast brace in the emergency room and wore it for 2 weeks, and then wrapped it for one week. She currently exercises with her kids and does cycling. At home she is bothered by stiffness in the R ankle in the morning and has difficulty with descending of stairs or descending with hiking. Pointing of her toes and turning her foot inwards hurts, but flexing up is not painful. Prior Treatments and Tests X-ray @ on 12/30/18. No fractures. Future Testing and Treatments Planned None Developmental History Developmental History Has rolled ankle before many times but nothing with injury. Treatment Goals Patient/Caregiver Goals Pt goal is to get it back to normal. Biking, running. Prior level: Run 20-25 miles/ week, more in the summer. Biked daily. Prior Functional Status Baseline Function- ADL's Independent Baseline Function- Mobility Independent Baseline Function- Gait Normal Current Functional Impairments (Reported) Functional Limitations- ADL's Limited with squatting, walking down stairs, standing and moving foot into inversion . Functional Limitations- Mobility/Gait None Personal Factors Other Personal Factors That May Effect Children at home: 16 yr old Therapy/Recovery daughter & two 15 yr olds. Back pain with prolonged standing. Latex allergy PT-OP-C Subjective Start: 02/11/19 14:59 Freq: Status: Active Protocol: Document 03/18/19 08:56 EA (Rec: 03/18/19 09:01 EA [id number]) OP-PT Subjective Patient Comments Patient Comments Pt reports her right ankle feels good after running last night; stated no increased of symptoms and is ready to be discharged if necessary. She mentined that she and her kids are going for a backpacking activity today. PT-OP-D Balance Start: 02/11/19 14:59 Freq: Status: Active Protocol: Document 02/12/19 08:15 LRN (Rec: 02/12/19 17:24 LRN [id number]) Balance Tests Single Limb Standing Single Limb- Right EO: 60+ secs, EC: 26 secs Single Limb- Left EO: 60+ secs, EC: 25 secs Other Other Balance Tests Performed SLS with head turns: 60+ sec' s bilaterally. PT-OP-F Manual Assessment Start: 02/11/19 14:59 Freq: Status: Active Protocol: Document 02/12/19 08:15 LRN (Rec: 02/12/19 17:24 LRN [id number]) Manual Assessments Soft Tissue Assessment Soft Tissue Mobility Assessment Mild swelling at the R lateral > medial ankle posteriorly, inferiorly and inferoanteriorly to the malleolus. Moderate palpation - Discomfort. Mild palpation - no pain. Joint Mobility Assessment Joint Mobility Assessment Increased AP glide of R Calcaneus on Talus. PT-OP-G Mobility & Gait Start: 02/11/19 14:59 Freq: Status: Active Protocol: Document 02/12/19 08:15 LRN (Rec: 02/12/19 17:24 LRN [id number]) OP Mobility Evaluation Functional Movements Squats Decreased on the R side. Running Assessment Deferred. PT-OP-H Neuro Start: 02/11/19 14:59 Freq: Status: Active Protocol: Document 02/12/19 08:15 LRN (Rec: 02/12/19 17:24 LRN [id number]) Sensation Evaluation Gross Sensation Gross Sensation WNL PT-OP-J Posture/Palpation/Skin Start: 02/11/19 14:59 Freq: Status: Active Protocol: Document 02/12/19 08:15 LRN (Rec: 02/12/19 17:24 LRN [id number]) Posture Evaluation Position Standing Evaluation View All positions Head/C-Spine Posture Neutral Position T-Spine Posture Neutral L-Spine Posture Increased Lordosis Shoulder Posture Neutral Pelvis Posture Anteriorly Tilted Weight Distribution Weight Shifted Left Knee Posture (L) Genu Valgus (R) Genu Valgus Ankle/Foot Posture (R) Calcaneal Inversion Foot Arch (L) High Arch Skin Assessment Edema Assessment Right Ankle Edema Type Non-Pitting Edema Degree 1+ Edema Appearance Puffy Subjective Edema Description Tightness Comments Edema at medial and lateral ankle. PT-OP-K Range of Motion Start: 02/11/19 14:59 Freq: Status: Active Protocol: Document 02/12/19 08:15 LRN (Rec: 02/12/19 17:24 LRN [id number]) Knee Goniometric Range of Motion Knee Right Knee ROM WFL Yes Hyper-Extension Active 3 Left Knee ROM WFL Yes Hyper-Extension Active 3 Ankle and Foot Goniometric Range of Motion Ankle and Foot Right Active Ankle/Foot ROM WFL No Testing Position Supine Dorsiflexion with Knee Flexed 10 Dorsiflexion with Knee Extended 4 Plantarflexion 52 Inversion 35 Eversion 0 Left Active Ankle/Foot ROM WFL Yes Testing Position Supine Dorsiflexion with Knee Flexed 9 Dorsiflexion with Knee Extended 7 Plantarflexion 58 Inversion 37 Eversion 10 Toe Range of Motion Toes ROM Limitations Comments None PT-OP-L Special Tests Start: 02/11/19 14:59 Freq: Status: Active Protocol: Document 02/12/19 08:15 LRN (Rec: 02/12/19 17:24 LRN [id number]) Special Tests Foot/Ankle Special Tests R Anterior Draw Test Results Increased mobility on lateral side PT-OP-M Strength Start: 02/11/19 14:59 Freq: Status: Active Protocol: Document 02/12/19 08:15 LRN (Rec: 02/12/19 17:24 LRN [id number]) Trunk Strength Trunk Manual Muscle Testing Testing Position Standing Core Stabilization Pt unable to maintain upright posturing with single leg standing. Hip Strength Hip Manual Muscle Testing Right Comments Knee collapses inward on squatting. Left Comments Knee collapses inward on squatting. Knee Strength Knee Manual Muscle Testing Right Reason Not Measured WFL Left Reason Not Measured WFL Ankle/Foot Strength Ankle and Foot Manual Muscle Testing Right Dorsiflexion (L4) 5 Normal Plantarflexion (S1) 5 Normal Inversion 5 Normal Eversion (S1) 4 Good Left Reason Not Measured WFL PT-OP-Q Treatments Start: 02/11/19 14:59 Freq: Status: Active Protocol: Document 03/18/19 08:56 EA (Rec: 03/18/19 09:01 EA [id number]) Cardio Equipment Treadmill Duration (Minutes) 6 Speed 3-7.5 Incline 0 Therapeutic Exercises Standing Exercises 9 Standing Exercise Name 8 stairs steps down and back up Reps/Minutes x 2 mins Comments HEP comp 8 Standing Exercise Name BUSO squat Reps/Minutes x 12 reps 7 Standing Exercise Name Single leg hopping Reps/Minutes HEP com 6 Standing Exercise Name FWD/BWD lunges with trunk med ball rotation Reps/Minutes x 12 ft x 2 laps Comments HEP comp 5 Standing Exercise Name Floor squares; Coordination and proprioception exercises Reps/Minutes x 3 mins Comments HEP comp 3 Standing Exercise Name Floor square: in and out lateral mobility Reps/Minutes x 4 laps 2 Standing Exercise Name BUSO side to side/up and down Reps/Minutes x 30 secs x 2 sets SLS Side right Resistance green foam Reps/Minutes 15-20 5x Comments ball throws Self-Care/Home Management Treatment Education Patient Education Home Exercise Program Joint Protection Pain Management Safety PT-OP-R Modalities Start: 02/11/19 14:59 Freq: Status: Active Protocol: Document 03/13/19 08:59 EA (Rec: 03/13/19 09:39 EA [id number]) Hot Pack/Cold Pack Treatment Cold Pack Location R ankle Patient Position Hooklying Treatment Duration (minutes) 13 Comments Cryocuff PT-OP-T Assessment and Plan Start: 02/11/19 14:59 Freq: Status: Active Protocol: Document 03/18/19 08:56 EA (Rec: 03/18/19 09:01 EA [id number]) Physical Therapy Assessment Assessment Summary Assessment Patient is discharge today after reaching highest functional mobility. No noted any signs of discomfort during high impact therex. Educated with further HEP and safe high impact activities and with excellent understanding. Physical Therapy Plan Discharge Physical Therapy Discharge Reasons Goals Met Discharge Comments Patient request
== END 2019-03-29 10:11 | disposition home or self-care (01) ==
LOC: PHYS 08:15
PROVIDERS: PCP Student in an Organized Health Care Education/Training Program; Visit Provider Student in an Organized Health Care Education/Training Program
DX: S93.409A Sprain of unspecified ligament of unspecified ankle, initial encounter (principal); S96.19 Other specified injury of muscle and tendon of long extensor muscle of toe at ankle and foot level; M62.81 Muscle weakness (generalized); R29.898 Other symptoms and signs involving the musculoskeletal system
CPT/HCPCS: 97010; 97035; 97110; 97140; 97161; 97535

== ENCOUNTER → 2019-10-08 09:33 | Outpatient (CLI) | payer OTHER, SELFPAY ==
[2019-10-08 11:43] LABS: Hemoglobin 14.1 g/dL (12.0-16.0); Mean Corpuscular HGB Conc 34.4 % (30-36); Mean Corpuscular Hemoglobin 30.8 PG (26-34); Mean Corpuscular Volume 89.6 fL (80-100); Platelet Count 292 X10^3/uL (150-400); Red Blood Cell Count 4.58 X10^6/uL (4.0-5.2); Red Cell Distribution Width 13.4 % (11.6-14.8); White Blood Cell Count 4.4 X10^3/uL (4.5-11.0)
[2019-10-08 12:00] LABS: Alanine Aminotransferase 11 IU/L (<35); Albumin 4.6 g/dL (3.5-5.0); Albumin Globulin Ratio 1.4 (1.0-2.8); Alkaline Phosphatase 61 U/L (38-126); Aspartate Aminotransferase 32 IU/L (14-36); Bilirubin Total 0.6 mg/dL (0.2-1.3); Blood Urea Nitrogen 9 mg/dL (7-17); Calcium 9.9 mg/dL (8.4-10.2); Carbon Dioxide 21 mmol/L (22-32); Chloride 105 mmol/L (98-107); Cholesterol 194 mg/dL (140-199); Estimated Glomerular Filt Rate > 60.0 mL/min (>60); Globulin 3.2 g/dL (1.7-4.1); Glucose 81 mg/dL (70-100); HDL Cholesterol 100 mg/dL (40-60); HEMOLYSIS < 15 (0-50); LDL Cholesterol Calculated 75 mg/dL (<100); Potassium 4.3 mmol/L (3.4-5.1); Sodium 138 mmol/L (137-145); Total Protein 7.8 g/dL (6.3-8.2); Triglycerides 93 mg/dL (35-150)
== END ==
PROVIDERS: PCP Nurse Practitioner Family; Referring Provider Nurse Practitioner Family; Visit Provider Nurse Practitioner Family
DX: Z00.00 Encounter for general adult medical examination without abnormal findings (principal); Z13.6 Encounter for screening for cardiovascular disorders
CPT/HCPCS: 36415; 80053; 80061; 85027

== ENCOUNTER → 2020-03-26 14:19 | Outpatient (CLI) | payer OTHER, SELFPAY ==
--- NOTE | 2020-03-26 14:20 | DI.RAD.S_ITS ---
PROCEDURE: XR HIP W PEL IF DONE RT 2V INDICATIONS: right hip pain TECHNIQUE: AP pelvis with lateral view(s) of the right hip(s). COMPARISON: None. FINDINGS: Bones: No fracture. Mild bilateral hip joint degeneration. Mild lower lumbar spondylosis and facet arthropathy. Anatomic alignment at the SI joints and pubic symphysis. Soft tissues: The visualized bowel gas pattern is normal. No suspicious soft tissue calcifications. IMPRESSION: Mild bilateral hip joint degeneration. Approved by: Huy Doty M.D. on 03/26/2020 at 15:56
== END ==
PROVIDERS: PCP Nurse Practitioner Family; Referring Provider Nurse Practitioner Family; Visit Provider Nurse Practitioner Family
DX: M25.551 Pain in right hip (principal); M16.0 Bilateral primary osteoarthritis of hip
CPT/HCPCS: 73502

== ENCOUNTER → 2020-09-17 14:15 | Outpatient (CLI) | payer OTHER, SELFPAY ==
--- NOTE | 2020-09-17 14:16 | DI.RAD.S_ITS ---
PROCEDURE: XR KNEE LT 3V INDICATIONS: left knee pain TECHNIQUE: 3 views of the knee were acquired. COMPARISON: None. FINDINGS: Bones: No fractures or dislocations. No suspicious bony lesions. Soft tissues: No joint effusion. No suspicious soft tissue calcifications. IMPRESSION: No fracture. No osseous lesion. If symptoms and/or clinical suspicion for pathology persists, further assessment with repeat radiographs (7-10 days) or advanced imaging (e.g. CT, MRI or bone scan) should be considered. Dictated by: Laura Velez MD, PhD on 09/17/2020 at 16:03 Approved by: Laura Velez MD, PhD on 09/17/2020 at 16:04
== END ==
PROVIDERS: PCP Nurse Practitioner Family; Referring Provider Nurse Practitioner Family; Visit Provider Nurse Practitioner Family
DX: M25.562 Pain in left knee (principal)
CPT/HCPCS: 73562

== ENCOUNTER → 2020-10-06 10:09 | Outpatient (CLI) | payer OTHER, SELFPAY ==
[2020-10-06 10:39] LABS: Hematocrit 42.9 % (36-46); Hemoglobin 14.5 g/dL (12.0-16.0); Mean Corpuscular HGB Conc 33.8 % (30-36); Mean Corpuscular Hemoglobin 30.8 PG (26-34); Mean Corpuscular Volume 91.2 fL (80-100); Platelet Count 292 X10^3/uL (150-400); Red Blood Cell Count 4.71 X10^6/uL (4.0-5.2); Red Cell Distribution Width 13.2 % (11.6-14.8); White Blood Cell Count 5.1 X10^3/uL (4.5-11.0)
[2020-10-06 11:22] LABS: Alanine Aminotransferase 19 IU/L (<35); Albumin 4.9 g/dL (3.5-5.0); Albumin Globulin Ratio 1.5 (1.0-2.8); Alkaline Phosphatase 78 U/L (38-126); Aspartate Aminotransferase 41 IU/L (14-36); BUN Creatinine Ratio 12.7 (6-22); Bilirubin Total 0.7 mg/dL (0.2-1.3); Blood Urea Nitrogen 10 mg/dL (7-17); Carbon Dioxide 27 mmol/L (22-32); Chloride 105 mmol/L (98-107); Estimated Glomerular Filt Rate > 60.0 mL/min (>60); Globulin 3.3 g/dL (1.7-4.1); Glucose 90 mg/dL (70-100); HEMOLYSIS < 15 (0-50); Potassium 3.9 mmol/L (3.4-5.1); Sodium 137 mmol/L (137-145); Total Protein 8.2 g/dL (6.3-8.2)
[2020-10-06 11:39] LABS: Vitamin D 25 Hydroxy (D3) 50.7 ng/mL (30.0-100.0)
[2020-10-06 11:43] LABS: TSH w/ Reflex to FT4 1.01 uIU/mL (0.47-4.68)
== END ==
PROVIDERS: PCP Nurse Practitioner Family; Referring Provider Nurse Practitioner Family; Visit Provider Nurse Practitioner Family
DX: Z00.00 Encounter for general adult medical examination without abnormal findings (principal); E55.9 Vitamin D deficiency, unspecified; K59.00 Constipation, unspecified
CPT/HCPCS: 36415; 80053; 82306; 84443; 85027

== ENCOUNTER → 2021-03-22 09:25 | Outpatient (CLI) | payer OTHER, SELFPAY ==
[2021-03-22 10:57] LABS: Alanine Aminotransferase 13 IU/L (<35); Albumin Globulin Ratio 1.5 (1.0-2.8); Alkaline Phosphatase 70 U/L (38-126); Aspartate Aminotransferase 38 IU/L (14-36); Bilirubin Total 0.7 mg/dL (0.2-1.3); Bilirubin Unconjugated 0.5 mg/dL (0.0-1.1); Cholesterol 181 mg/dL (140-199); Globulin 3.3 g/dL (1.7-4.1); HDL Cholesterol 95 mg/dL (40-60); HEMOLYSIS 23 (0-50); LDL Cholesterol Calculated 73 mg/dL (<100); Potassium 4.2 mmol/L (3.4-5.1); Total Protein 8.3 g/dL (6.3-8.2); Triglycerides 65 mg/dL (35-150)
[2021-03-22 10:58] LABS: HEMOLYSIS 22 (0-50); Potassium 4.2 mmol/L (3.4-5.1)
== END ==
PROVIDERS: PCP Nurse Practitioner Family; Referring Provider Physician Assistant; Visit Provider Physician Assistant
DX: L70.8 Other acne (principal); R74.01 Elevation of levels of liver transaminase levels; Z13.6 Encounter for screening for cardiovascular disorders
CPT/HCPCS: 36415; 80061; 80076; 84132

== ENCOUNTER → 2021-06-30 12:59 | Outpatient (CLI) | payer OTHER, SELFPAY ==
--- NOTE | 2021-06-30 13:00 | DI.MG.S_ITS ---
BILATERAL DIGITAL DIAGNOSTIC MAMMOGRAM 3D/2D: 06/30/2021 CLINICAL: Baseline, Left lump. Family history of breast cancer. No prior exams were available for comparison. The tissue of both breasts is extremely dense, which lowers the sensitivity of mammography. No significant masses, calcifications, or other findings are seen in either breast. IMPRESSION: INCOMPLETE: NEEDS ADDITIONAL IMAGING EVALUATION No suspicious or salient mammographic abnormality demonstrated. Ultrasound will be performed. This exam was interpreted at Station ID: [id number]. NOTE: For mammograms, a report in lay terms will be sent to the patient. Approximately 15% of breast malignancies will not be visualized mammographically. In the management of a palpable breast mass, a negative mammogram must not discourage biopsy of a clinically suspicious lesion. Electronically Signed By: Celestino Alcantara M.D. jr/:06/30/2021 13:57:47 ACR BI-RADS Category 0: Incomplete 3340F
--- NOTE | 2021-06-30 13:00 | DI.US.S_ITS ---
LIMITED ULTRASOUND OF LEFT BREAST AND AXILLA: 06/30/2021 CLINICAL: Palpable left breast lump. Comparison is made to exam dated: 06/30/2021 [facility]. Color flow, real-time, and Doppler ultrasound of the left breast upper outer quadrant and axilla regions were performed. Shukla scale images of the real-time examination were reviewed. No significant abnormalities were seen sonographically in the left breast or the left axilla. IMPRESSION: NEGATIVE There is no sonographic evidence of malignancy. This exam was interpreted at Station ID: [id number]. Electronically Signed By: Celestino Alcantara M.D., jr/tati:06/30/2021 15:50:03 letter sent: Normal Exam Ultrasound BI-RADS: 1 Negative
== END ==
PROVIDERS: PCP Nurse Practitioner Family; Referring Provider Nurse Practitioner Family; Visit Provider Nurse Practitioner Family
DX: R92.8 Other abnormal and inconclusive findings on diagnostic imaging of breast (principal); N63.20 Unspecified lump in the left breast, unspecified quadrant; Z80.3 Family history of malignant neoplasm of breast
CPT/HCPCS: 76642; 77066; G0279

== ENCOUNTER → 2022-06-11 18:22 | Outpatient (CLI) | payer OTHER, SELFPAY | PROVIDERS: PCP Registered Nurse Diabetes Educator; Visit Provider Physician Assistant | DX: N39.0 Urinary tract infection, site not specified (principal) | CPT/HCPCS: 87077; 87086; 87186 ==

== ENCOUNTER 2022-06-12 01:16 | Emergency (ER) | payer OTHER, SELFPAY ==
[2022-06-12] MEDS: SODIUM CHLORIDE 0.9% 1,000 ML 1000 ML IV (01:20)
[2022-06-12] MEDS: KETOROLAC 30 MG/ML VIAL 15 MG IV (01:25)
[2022-06-12 01:30] VITALS: BP 140/91; PULSE 78; RESP 18; TEMP 36.6; O2SAT 99; BMI 22.2
[2022-06-12] MEDS: ONDANSETRON 4 MG ODT PREPACK 1 BOTTLE MISC (01:45)
[2022-06-12] MEDS: levoFLOXacin 250 MG TABLET 500 MG PO (01:45)
[2022-06-12] MEDS: HYDROCODONE/ACET 5/325 PREPACK 1 BOTTLE MISC (01:45)
--- NOTE | 2022-06-12 01:45 | DI.CT.S_ITS ---
PROCEDURE: CT KIDNEY URETER BLADDER (KUB) INDICATIONS: R flank pain TECHNIQUE: Axial sections were acquired from the lung bases to the pubic symphysis. Coronal and sagittal reformats were performed. For radiation dose reduction, the following was used: automated exposure control, adjustment of mA and/or kV according to patient size. COMPARISON: None. FINDINGS: Image quality: Excellent. Lung bases: Unremarkable. Heart: No significant findings. URINARY: Right Kidney: No definite hydronephrosis or nephrolithiasis. Right Ureter: Poorly visualized but no definite hydroureter is seen. No calculus identified. Left Kidney: No definite hydronephrosis or nephrolithiasis. Left Ureter: No hydroureter is found. No ureteral stone is identified. Bladder: Normal wall thickness. No stones. ABDOMEN: Liver: Unremarkable. Gallbladder: Not well seen. Biliary ducts: Unremarkable. Pancreas: Unremarkable. Spleen: Unremarkable. Adrenal Glands: Unremarkable. Stomach and Bowel: Stomach, small bowel loops, and colon are unremarkable. Peritoneum: No abnormal intraperitoneal fluid. No free air. Ventral Wall: No hernia. Abdominal Nodes: No enlarged retroperitoneal or mesenteric lymph nodes. Vessels: Aorta and inferior vena cava are normal in size. PELVIS: Pelvic Organs: Unremarkable. Pelvic Nodes: Unremarkable. Miscellaneous: No inguinal hernias are seen. Bones: Unremarkable. IMPRESSION: A definite source of reported right-sided flank pain is not found. No hydronephrosis or nephrolithiasis is seen. Dictated by: Chuck Denis M.D. on 06/12/2022 at 1:05 Approved by: Chuck Denis M.D. on 06/12/2022 at 1:08
--- NOTE | 2022-06-12 01:52 | ED.FEMALEGU ---
HPI - Female Genitourinary General Chief complaint: Urogenital-Female Stated complaint: uti/wic last night Time Seen by Provider: 06/12/22 01:18 PDT Source: patient Mode of arrival: Ambulatory History of Present Illness HPI Narrative: 37F former smoker without chronic medical problems presents with her and the chief complaint of a few days of urinary frequency, urgency along with some mild nausea. Over the course of the past day or so she is developed some suprapubic tenderness and pain radiating along her right flank into her right back. She had been seen and evaluated earlier today in the walk-in clinic and was found have a urine infection was given a prescription for antibiotics but was unable to pick it up. She states her pain largely seems to be worse when she moves and improves with rest but she states it is still present at rest and she is found herself pacing at times. She states it is highly unlikely that she is but she is off of her control, however her has had a vasectomy. Related Data Home Medications Medication Instructions Recorded Confirmed ascorbic acid (vitamin C) 500 mg 500 mg PO QDAY ##0 07/25/17 12/27/21 tablet cholecalciferol (vitamin D3) 25 1,000 unit PO QDAY ##0 07/25/17 12/27/21 mcg (1,000 unit) tablet (Vitamin D3) calcium phosphate 250 mg-vitamin tab PO 10/04/19 12/27/21 D3 2.5 mcg (100 unit) chewable tablet (Yogurt Plus Calcium Gummies) prenat.vits,florin,[id number]-[id number] 1 tab PO DAILY 10/04/19 12/27/21 cetirizine 10 mg tablet (All Day 10 mg PO DAILY 10/06/20 12/27/21 Allergy (cetirizine)) ground flax See Rx Instructions PO 10/06/20 12/27/21 omega-3 fatty acids 1,000 mg 2,000 mg PO DAILY 10/06/20 12/27/21 capsule (Fish Oil Concentrate) spironolactone 50 mg tablet 50 mg PO BID 12/27/21 12/27/21 Previous Rx's Medication Instructions Recorded levofloxacin 250 mg tablet 250 mg PO DAILY #3 tabs 06/11/22 Allergies Allergy/AdvReac Type Severity Reaction Status Date / Time latex Allergy Severe Irritation Verified 06/12/22 01:30 PDT to skin and respiratory reaction Review of Systems Review of Systems Narrative: GENERAL: See HPI HEENT: Denies sinus pain, ear pain, sore throat, difficulty swallowing, dizziness. RESPIRATORY: Denies dyspnea, cough, wheezing, hemoptysis, sputum. CARDIOVASCULAR: Denies chest pain, palpitations, orthopnea, edema, GASTROINTESTINAL: Denies nausea, vomiting, abdominal pain, diarrhea, constipation, melena. : See HPI MUSCULOSKELETAL: denies weakness, joint pain, or bony pain SKIN: Denies rash, skin lesions, or other NEUROLOGIC: Denies weakness, headache, numbness, change in speech, confusion, seizures, incoordination. PSYCHIATRIC: No concerning psychosocial issues. 12 point review of systems is negative except for those stated above Patient History Medical History Abnormal Pap smear of cervix (2012) Breast tenderness in female Constipation Heavy menses Right hip pain (2013) Stress incontinence Vaginal delivery Substance Use Type: does not use Exam Narrative Exam Narrative: GENERAL: [37] year old patient appears stated age. Well-developed patient, in mild distress. HEAD: Atraumatic. Normocephalic. EYES: Pupils equal round and reactive. Extraocular motions intact. No scleral icterus. No injection or drainage. ENT: Nose without bleeding, purulent drainage. Throat without erythema, tonsillar hypertrophy or exudate. Airway patent. NECK: Trachea midline. Non tender CARDIOVASCULAR: Regular rate and rhythm without murmurs, gallops, or rubs. RESPIRATORY: Clear to auscultation. Breath sounds equal bilaterally. No wheezes, rales, or rhonchi. GASTROINTESTINAL: Abdomen soft, mild suprapubic tenderness, nondistended. EXTREMITIES: No edema or joint tenderness. BACK: Right CVA tenderness NEURO: AOx3. SKIN: No rash or erythema of visible areas Initial Vital Signs Initial Vital Signs: Vital Signs Temperature 97.8 F 06/12/22 01:30 PDT Pulse Rate 78 06/12/22 01:30 PDT Respiratory Rate 18 06/12/22 01:30 PDT Blood Pressure 140/91 H 06/12/22 01:30 PDT Pulse Oximetry 99 06/12/22 01:30 PDT Oxygen Delivery Method 06/12/22 01:30 PDT Course Orders Ordered: ED Orders 06/12/22 01:37 Urine Culture Stat Urine Microscopic Stat 06/12/22 01:43 Basic Metabolic Panel Stat Complete Blood Count AUTO DIFF Stat 06/12/22 01:45 CT kidney ureter bladder (KUB) Stat Sodium Chloride (Normal Saline 0.9%) 1,000 mls @ 1,000 mls/hr IV BOLUS ONE Stop: 06/12/22 02:41 Discontinued Medications Ketorolac Tromethamine (Ketorolac 30 Mg/Ml Vial) 15 mg IV NOW ONE Stop: 06/12/22 01:43 PST Vital Signs Vital signs: Vital Signs - 8 hr 06/12/22 01:30 PDT Temperature 97.8 F Pulse Rate 78 Respiratory Rate 18 Blood Pressure 140/91 H Pulse Oximetry 99 Oxygen Delivery Method Room Air MDM - Female Genitourinary Lab Data Labs: Point of Care Testing Test Results Negative Urine Dip Bedside Urine Glucose Negative Bedside Urine Bilirubin - Negative Bedside Urine Ketone + 15 Urine Specific Kaufman 1.020 Bedside Urine Occult Blood +++ Bedside Urine pH 6.0 Bedside Urine Protein ++ 100 Bedside Urine Urobilinogen - Negative Bedside Urine Nitrite - Negative Bedside Urine Leukocytes + [address] scan - abdomen/pelvis: Radiologist's Impression: Diagnostics Reports Kathy Dela Cruz V??[id number]??F??[id number] ? Allergy/Adv: latex Close Abdomen/Pelvis CT (Signed) Chuck Denis - 06/12/22 Mammogram Diagnostic (Signed) Celestino Alcantara - 06/30/21 Breast Ultrasound (Signed) Celestino Alcantara - 06/30/21 Knee X-Ray (Signed) Laura Velez - 09/17/20 Hip X-Ray (Signed) Huy Doty - 03/26/20 Ankle X-Ray (Signed) Prakash Riley - 12/30/18 Launch?[place] [address] CT Scan Report Signed Patient: Kathy Dela Cruz V MR#: [id number] : 1985 Acct:[id number] Age/Sex: 37 / F Date of Service: 06/12/22 Loc: ED Accession Number: [id number] ?? Procedure: CT kidney ureter bladder (KUB) Ordering Provider: Giacomo Edwards D.O. PROCEDURE:? CT KIDNEY URETER BLADDER (KUB) ? INDICATIONS:? R flank pain ? TECHNIQUE:? Axial sections were acquired from the lung bases to the pubic symphysis.? Coronal and sagittal reformats were performed.? For radiation dose reduction, the following was used: ?automated exposure control, adjustment of mA and/or kV according to patient size.? ? COMPARISON:? None. ? FINDINGS:? Image quality:? Excellent.? ? Lung bases:? Unremarkable.? ? Heart:? No significant findings. ? URINARY: Right Kidney:? No definite hydronephrosis or nephrolithiasis.? Right Ureter:? Poorly visualized but no definite hydroureter is seen.? No calculus identified. ? Left Kidney:? No definite hydronephrosis or nephrolithiasis.? Left Ureter:? No hydroureter is found.? No ureteral stone is identified.? ? Bladder:? Normal wall thickness. No stones. ? ? ? ABDOMEN: Liver:? Unremarkable.? ? Gallbladder:? Not well seen.? ? Biliary ducts:? Unremarkable.? ? Pancreas:? Unremarkable.? ? Spleen:? Unremarkable.? ? Adrenal Glands:? Unremarkable.? ? ? Stomach and Bowel:? Stomach, small bowel loops, and colon are unremarkable.? Peritoneum:? No abnormal intraperitoneal fluid.? No free air.? ? Ventral Wall: ? No hernia.? Abdominal Nodes:? No enlarged retroperitoneal or mesenteric lymph nodes.? Vessels:? Aorta and inferior vena cava are normal in size.? ? PELVIS: Pelvic Organs:? Unremarkable.? ? Pelvic Nodes: Unremarkable. Miscellaneous: No inguinal hernias are seen. ? ? ? Bones:? Unremarkable. ? IMPRESSION:? A definite source of reported right-sided flank pain is not found.? No hydronephrosis or nephrolithiasis is seen. ? Dictated by: Chuck Denis M.D. on 06/12/2022 at 1:05 ? ? Approved by: Chuck Denis M.D. on 06/12/2022 at 1:08 ? MDM Narrative Medical decision making narrative: Patient with reassuring history and physical exam, no signs of sepsis. Elements of her description are a bit atypical for pyelonephritis including the waxing waning symptoms and what she describes as a relatively sudden onset in her symptoms. For this reason and in the setting of hematuria CT KUB obtained to rule out urinary infection in the setting of a kidney stone. Her pain is well controlled, she shows no signs of sepsis. Tolerating orals, 1st dose of antibiotics given here and patient encouraged to fill her prescription Discharge Plan Departure Patient Disposition: Home Prescriptions: No Action levofloxacin 250 mg tablet 250 mg PO DAILY Qty: 3 0RF ascorbic acid (vitamin C) 500 MG tablet 500 mg PO QDAY Qty: 0 cholecalciferol (vitamin D3) [Vitamin D3] 1,000 UNIT tablet 1,000 unit PO QDAY Qty: 0 omega-3 fatty acids [Fish Oil Concentrate] 1,000 mg capsule 2,000 mg PO DAILY ground flax See Rx Instructions PO Rx Instructions: spoonful cetirizine [All Day Allergy (cetirizine)] 10 mg tablet 10 mg PO DAILY spironolactone 50 mg tablet 50 mg PO BID prenat.vits,florin,[id number] Tablet 1 tab PO DAILY Yogurt Plus Calcium Gummies 250 mg calcium- 100 unit tablet,chewable PO Referrals: Joaquin He ARNP [Primary Care Provider] -
[2022-06-12 02:01] LABS: Add Manual Diff / Slide Review NO; Basophils Absolute Auto 100 /uL (0-100); Basophils Percent Auto 0.6 % (0-2); Eosinophils Absolute Auto 200 /uL (0-450); Eosinophils Percent Auto 1.8 % (2-4); Hematocrit 40.9 % (36-46); Hemoglobin 13.9 g/dL (12.0-16.0); Lymphocytes Absolute Auto 2300 /uL (1100-4500); Lymphocytes Percent Auto 24.4 % (25-40); Mean Corpuscular HGB Conc 33.9 % (30-36); Mean Corpuscular Hemoglobin 30.9 PG (26-34); Mean Corpuscular Volume 90.9 fL (80-100); Monocytes Absolute Auto 900 /uL (0-900); Monocytes Percent Auto 9.5 % (3-14); Neutrophils Absolute Auto 5900 /uL (1500-7000); Neutrophils Percent Auto 63.7 % (50-75); Platelet Count 310 X10^3/uL (150-400); Red Cell Distribution Width 13.5 % (11.6-14.8); White Blood Cell Count 9.2 X10^3/uL (4.5-11.0)
[2022-06-12 02:04] LABS: BUN Creatinine Ratio 10.7 (6-22); Blood Urea Nitrogen 9 mg/dL (7-17); Calcium 9.4 mg/dL (8.4-10.2); Carbon Dioxide 25 mmol/L (22-32); Chloride 103 mmol/L (98-107); Estimated Glomerular Filt Rate > 60 mL/min (>60); Glucose 91 mg/dL (70-100); HEMOLYSIS < 15 (0-50); Potassium 3.6 mmol/L (3.4-5.1); Sodium 139 mmol/L (137-145)
[2022-06-12 02:19] LABS: RBC Urine 30-100/HPF (0-5/HPF); WBC Urine 30-100/HPF (0-5/HPF)
[2022-06-12 02:20] LABS: Bacteria Urine Few (2-10)
== END 2022-06-12 01:59 | disposition home or self-care (01) ==
PROVIDERS: Emergency Provider Emergency Medicine; PCP Registered Nurse Diabetes Educator
DX: N12 Tubulo-interstitial nephritis, not specified as acute or chronic (principal)
CPT/HCPCS: 36415; 74176; 80048; 81003; 81015; 81025; 85025; 87077; 87086; 87186; 96374; 99284; J1885

== ENCOUNTER → 2023-04-27 09:17 | Outpatient (CLI) | payer OTHER, SELFPAY ==
--- NOTE | 2023-04-27 09:19 | DI.MG.S_ITS ---
BILATERAL DIGITAL DIAGNOSTIC MAMMOGRAM 3D/2D: 04/27/2023 CLINICAL: Left axillary lump. Comparison is made to exam dated: 06/30/2021 mammogram - [facility]. Both breasts are extremely dense, which lowers the sensitivity of mammography (category d />75% glandular tissue). A BB marker was placed in the area of clinical concern in the left axilla, and no mammographic abnormality is identified. No other significant masses, calcifications, or other findings are seen in either breast. IMPRESSION: INCOMPLETE: NEEDS ADDITIONAL IMAGING EVALUATION No mammographic abnormality in the area of clinical concern in the left axilla. Recommend further evaluation with targeted left axillary ultrasound, which will immediately follow this exam. Based on the Tyrer Cuzick model (a risk assessment model) the patient's lifetime risk is 9.6% and her 10 year risk is 1.0%. According to the ACR, ACS, and NCCN guidelines, an annual breast MRI exam along with mammogram is recommended if the patient's lifetime risk is 20% or greater. This exam was interpreted at Station ID: [id number]. NOTE: For mammograms, a report in lay terms will be sent to the patient. Approximately 15% of breast malignancies will not be visualized mammographically. In the management of a palpable breast mass, a negative mammogram must not discourage biopsy of a clinically suspicious lesion. Electronically Signed By: Zahraa Jackson M.D. esb/:04/28/2023 00:35:55 ACR BI-RADS Category 0: Incomplete 3340F
--- NOTE | 2023-04-27 09:19 | DI.US.S_ITS ---
LIMITED ULTRASOUND OF LEFT BREAST AND AXILLA: 04/27/2023 CLINICAL: Palpable left breast lump. Comparison is made to exams dated: 04/27/2023 mammogram, 06/30/2021 ultrasound, and 06/30/2021 mammogram - [facility]. Ultrasound of the left breast axillary tail was performed. No sonographic abnormality is seen in the area of clinical concern in the left axillary tail, 12 cm from the nipple. IMPRESSION: NEGATIVE No sonographic abnormality in the area of clinical concern in the left axillary tail. No sonographic or mammographic evidence of malignancy. Recommend routine annual mammogram screening starting at age 40. Findings and recommendations were conveyed to the patient during today's evaluation.Clinical follow-up is also recommended, and further management of palpable abnormalities or other focal signs or symptoms should be based on the results of clinical evaluation. If diffuse symptoms persist or become more focal in nature, further clinical evaluation should be considered. Findings and recommendations were conveyed to the patient during today's evaluation. This exam was interpreted at Station ID: [id number]. Electronically Signed By: Zahraa coon/:04/28/2023 00:40:55 letter sent: Clinical Evaluation Ultrasound BI-RADS: 1 Negative
== END ==
PROVIDERS: PCP Registered Nurse Diabetes Educator; Referring Provider Registered Nurse Diabetes Educator; Visit Provider Registered Nurse Diabetes Educator
DX: N63.20 Unspecified lump in the left breast, unspecified quadrant (principal); N64.4 Mastodynia; R92.2 Inconclusive mammogram
CPT/HCPCS: 76642; 77066; G0279

== ENCOUNTER → 2024-05-15 08:53 | Outpatient (CLI) | payer OTHER, SELFPAY ==
[2024-05-15 09:40] LABS: Hematocrit 42.3 % (36-46); Hemoglobin 14.5 g/dL (12.0-16.0); Mean Corpuscular HGB Conc 34.3 % (30-36); Mean Corpuscular Hemoglobin 31.2 PG (26-34); Mean Corpuscular Volume 91.2 fL (80-100); Platelet Count 283 X10^3/uL (150-400); Red Blood Cell Count 4.64 X10^6/uL (4.0-5.2); Red Cell Distribution Width 13.9 % (11.6-14.8); White Blood Cell Count 5.8 X10^3/uL (4.5-11.0)
[2024-05-15 10:08] LABS: Alanine Aminotransferase 13 IU/L (<35); Albumin 4.6 g/dL (3.5-5.0); Albumin Globulin Ratio 1.5 (1.0-2.8); Alkaline Phosphatase 56 U/L (38-126); Aspartate Aminotransferase 35 IU/L (14-36); BUN Creatinine Ratio 15.1 (6-22); Bilirubin Total 0.9 mg/dL (0.2-1.3); Blood Urea Nitrogen 11 mg/dL (7-17); Calcium 9.9 mg/dL (8.4-10.2); Carbon Dioxide 24 mmol/L (22-32); Chloride 104 mmol/L (98-107); Cholesterol 176 mg/dL (140-199); Estimated Glomerular Filt Rate > 60 mL/min (>60); Glucose 89 mg/dL (70-100); HDL Cholesterol 92 mg/dL (40-60); LDL Cholesterol Calculated 74 mg/dL (<100); Potassium 4.6 mmol/L (3.4-5.1); Sodium 134 mmol/L (137-145); Total Protein 7.6 g/dL (6.3-8.2); Triglycerides 50 mg/dL (35-150)
[2024-05-15 10:11] LABS: HEMOLYSIS 52 (0-50)
[2024-05-15 10:35] LABS: TSH w/ Reflex to FT4 1.37 uIU/mL (0.47-4.68)
== END ==
PROVIDERS: PCP Registered Nurse Diabetes Educator; Referring Provider Registered Nurse Diabetes Educator; Visit Provider Registered Nurse Diabetes Educator
DX: Z01.419 Encounter for gynecological examination (general) (routine) without abnormal findings (principal)
CPT/HCPCS: 36415; 80053; 80061; 84443; 85027

== ENCOUNTER → 2024-05-21 12:02 | Outpatient (CLI) | payer OTHER, SELFPAY ==
--- NOTE | 2024-05-21 | DI.US.S_ITS ---
ULTRASOUND OF RIGHT AXILLA: 05/21/2024 CLINICAL: Palpable right axilla lump x 6 months. Comparison is made to exams dated: 05/21/2024 mammogram, 04/27/2023 mammogram, and 06/30/2021 mammogram - [facility]. Real-time ultrasound of the right axilla was performed. Shukla scale images of the real-time examination were reviewed. No significant abnormalities were seen sonographically in the right axilla. IMPRESSION: NEGATIVE No sonographic evidence of malignancy in the region of the palpable abnormality. A 1 year screening mammogram is recommended. 01/18/2025 Exam findings were conveyed to the patient. Patient is advised to monitor for significant change. Clinical follow-up as needed. This exam was interpreted at Station ID: [id number]. Electronically Signed By: August Carrizales M.D. slc/:05/21/2024 12:59:20 letter sent: Normal Exam ACR BI-RADS Category 1: Negative
--- NOTE | 2024-05-21 12:04 | DI.RAD.S_ITS ---
PROCEDURE: XR SHOULDER RT MIN 2V INDICATIONS: R shoulder pain TECHNIQUE: Three-view of the shoulder were acquired. COMPARISON: None. FINDINGS: Bones: There are no osseous abnormalities. Acromioclavicular and glenohumeral joints: Normal in width and alignment without arthritic change Soft tissues: No soft tissue swelling, calcification or mass. IMPRESSION: Normal shoulder Dictated by: Sean Dawson M.D. on 05/22/2024 at 10:20 Approved by: Sean Dawson M.D. on 05/22/2024 at 10:20
--- NOTE | 2024-05-21 12:04 | DI.MG.S_ITS ---
BILATERAL DIGITAL DIAGNOSTIC MAMMOGRAM 3D/2D: 05/21/2024 CLINICAL: Palpable right breast lump. Comparison is made to exams dated: 04/27/2023 mammogram and 06/30/2021 mammogram - [facility]. The breasts are extremely dense, which lowers the sensitivity of mammography (category d />75% glandular tissue). No significant masses, calcifications, or other findings are seen in either breast. IMPRESSION: INCOMPLETE: NEED ADDITIONAL IMAGING EVALUATION No mammographic evidence of malignancy. A targeted ultrasound is recommended and will immediately follow. Based on the Tyrer Cuzick model (a risk assessment model) the patient's lifetime risk is 9.5% and her 10 year risk is 1.1%. According to the ACR, ACS, and NCCN guidelines, an annual breast MRI exam along with mammogram is recommended if the patient's lifetime risk is 20% or greater. This exam was interpreted at Station ID: [id number]. NOTE: For mammograms, a report in lay terms will be sent to the patient. Approximately 15% of breast malignancies will not be visualized mammographically. In the management of a palpable breast mass, a negative mammogram must not discourage biopsy of a clinically suspicious lesion. Electronically Signed By: August Carrizales M.D. [facility]/:05/21/2024 12:41:56 Entry: - 05/22/2024 15:23:06 letter sent: Need Ultrasound ACR BI-RADS Category 0: Incomplete: Need Additional Imaging Evaluation
--- NOTE | 2024-05-21 12:04 | DI.RAD.S_ITS ---
PROCEDURE: XR SHOULDER LT MIN 2V INDICATIONS: Left Shoulder pain TECHNIQUE: Three views of the shoulder were acquired. COMPARISON: None. FINDINGS: Bones: There are no osseous abnormalities. Acromioclavicular and glenohumeral joints: Normal in width and alignment without arthritic change Soft tissues: 1 cm artifact versus calcification seen in the subcutaneous soft tissues overlying the surgical neck. IMPRESSION: No significant abnormality. Dictated by: Sean Dawson M.D. on 05/22/2024 at 10:25 Approved by: Sean Dawson M.D. on 05/22/2024 at 10:27
== END ==
PROVIDERS: PCP Registered Nurse Diabetes Educator; Referring Provider Registered Nurse Diabetes Educator; Visit Provider Registered Nurse Diabetes Educator
DX: N63.11 Unspecified lump in the right breast, upper outer quadrant (principal); R92.343 Mammographic extreme density, bilateral breasts; R92.2 Inconclusive mammogram; M25.511 Pain in right shoulder; M25.512 Pain in left shoulder
CPT/HCPCS: 73030; 76882; 77066; G0279

== ENCOUNTER 2024-07-25 07:30 | Outpatient (RCR) | payer OTHER, SELFPAY ==
--- NOTE | 2024-06-18 16:03 | PT.OIE ---
Current Diagnoses Pain in left shoulder (06/18/24) Stiffness of left shoulder, not elsewhere classified (06/18/24) Weakness (06/18/24) Past Medical History (Last Reviewed 05/10/24 @ 08:28 by PRIMO Velasquez) Abnormal Pap smear of cervix (2012) Breast tenderness in female Constipation Heavy menses Right hip pain (2013) Stress incontinence Vaginal delivery Visit Care Team Role Provider Type PRIMO Velasquez Attending Provider Advanced Assistant Editor Family Provider Primary Care Provider Referring Provider Specialty: Medical Address: [address] [place] [address], [facility] Email: [email or web address] Physical Therapy Initial Evaluation PT-OP-A Visit Information Start: 06/18/24 14:31 Freq: Status: Active Protocol: Document 06/18/24 14:32 NM (Rec: 06/18/24 15:40 NM [id number]) Out-Patient Physical Therapy Visit Information Visit Information Visit Type Initial Evaluation Visit Start Time 13:33 Visit Stop Time 15:18 Visit Number 08/18 Evaluation Information Evaluation Date 06/18/24 PT-OP-B Current Condition Start: 06/18/24 14:31 Freq: Status: Active Protocol: Document 06/18/24 14:32 NM (Rec: 06/18/24 15:40 NM [id number]) Current Condition History of Current Condition Current Complaints pain History of Current Condition Pt presents with L shoulder pain. Has had for a year. Reports that sleeping on her shoulder is hard (side-stomach ). Unsure HARLEEN. Reports that just started to bother her one day. She did just start playing violin 1 year ago, sore after session. Pt reports crunchy shoulder B, L>R. Reports lots of popping with ER/IR osiel in adduction; no locking or catching. Pt reports no pain with lifting. Feels pain with push ups. No hx of shoulder injuries on L side. She reports that on R side she had loss of strength in R arm. She gets numb tingling. Wakes her up at night. She reports constant neck pain, states that has been ongoing for years. States locking feeling in neck. Episode occured in past month, when she saw Dr. He. She had had 3 within past 5 years. She reports neck pain worse after workouts. Massage helps, painful episodes. She reports that she gets a burning sensation into her L shoulder over RTC. L handed. She reports that the pain wakes her up at night. R shoulder stopped bothering within last 2 weeks. She reports that she painting her house for past month, no increased numbness and tingling. Has been using lacrosse ball Current Functional Impairments (Reported) Functional Limitations- ADL's washing back, vacuuming Functional Limitations- Mobility/Gait wt lifting (cross fit) 4x/wk has been doing since 2013 previous yoga 6 months Functional Limitations- Recreation/ violin Hobbies PT-OP-C Subjective Start: 06/18/24 14:31 Freq: Status: Active Protocol: Document 06/18/24 14:32 NM (Rec: 06/18/24 15:40 NM [id number]) OP-PT Subjective Patient Comments Patient Comments Pt agrees to participate in evaluation Patient Questionnaires Quick Dash- Upper Extremity Quick Dash UE Score 22.7% impairment OP-PT Pain Assessment Location R shoulder Intensity 0 Scale Used Numeric (0 - 10) Description Aching,Phantom Description- Other worst: 2 Pain Aggravating Factors Position,Exercise Other Pain Aggravating Factors sleeping Pain Alleviating Factors Massage L shoulder Pain Location Details ant-lat shoulder over RC inserts, infraspinatus, teres in axilla Intensity 2 Scale Used Numeric (0 - 10) Description Aching,Burning,Dull Description- Other 3/10 worst Frequency Intermittent Variations/Patterns shakes hands to go away Pain Aggravating Factors Exercise Other Pain Aggravating Factors violin, sleeping Pain Alleviating Factors Massage Home Pain Medication Use Pain Medications Used No PT-OP-E Functional Tests Start: 06/18/24 14:31 Freq: Status: Active Protocol: Document 06/18/24 14:32 NM (Rec: 06/18/24 15:40 NM [id number]) Functional Tests Apley's Scratch Test Action 1- Left scapular spine; no inc pain Action 1- Right infraspinatus; no inc pain Action 2- Left T2; challenging but not painful Action 2- Right T4 Action 3- Left T8; demos winging Action 3- Right T7; demos winging PT-OP-F Manual Assessment Start: 06/18/24 14:31 Freq: Status: Active Protocol: Document 06/18/24 14:32 NM (Rec: 06/18/24 15:40 NM [id number]) Manual Assessments Soft Tissue Assessment Soft Tissue Mobility Assessment Tenderness over L rotator cuff and restrictions of periscapulars Joint Mobility Assessment Joint Mobility Assessment Decreased L scapular mobility, increased winging on L side and anterior humeral position; gentle overpressure improves symptoms. No AC joint compression PT-OP-J Posture/Palpation/Skin Start: 06/18/24 14:31 Freq: Status: Active Protocol: Document 06/18/24 14:32 NM (Rec: 06/18/24 15:40 NM [id number]) Posture Evaluation Position Standing Head/C-Spine Posture Forward Head Shoulder Posture (L) Rounded,(R) Rounded Scapula Posture (L) Winged,(R) Winged Arm Posture (L) Internally Rotated,(R) Internally Rotated Pelvis Posture Anteriorly Tilted Hip Posture (L) Externally Rotated,(R) Externally Rotated Palpation Assessment Location R shoulder Palpation Details No tenderness over anterior, lateral, or posterior shoulder L shoulder Palpation Findings Tenderness Palpation Details Tenderness to palpation over biceps long head tendon, lateral shoulder over rotator cuff insertion and tender when following tendon to supraspinatus, infraspinatus, and teres minor Increased restrictions of periscapulars on L side, cervical paraspinals especially at CT junction Anterior humeral position PT-OP-K Range of Motion Start: 06/18/24 14:31 Freq: Status: Active Protocol: Document 06/18/24 14:32 NM (Rec: 06/18/24 15:40 NM [id number]) Cervical Spine Range of Motion Cervical Spine Active Degrees Flexion 55 Extension 50 Rotation Left 75 Rotation Right 60 Lateral Flexion Left 50 Lateral Flexion Right 45 Comments mild pain at CT junction w/ ext, rot, RLF Shoulder Goniometric Range of Motion Shoulder right Flexion 160 Extension 60 Abduction 170 External Rotation at 90 degrees 90 Abduction External Rotation at 0 degrees Abduction 55 left Flexion 155 Extension 55 Abduction 165 External Rotation at 90 degrees 80 Abduction External Rotation at 0 degrees Abduction 50 Comments pain and catch feeling w/ 110 deg flex, 125 deg abd; decreased catch w/ increased elevation PROM: full passive ER at 90/90 supine; no pain PT-OP-L Special Tests Start: 06/18/24 14:31 Freq: Status: Active Protocol: Document 06/18/24 14:32 NM (Rec: 06/18/24 15:40 NM [id number]) Special Tests Cervical Spine Special Tests Spurling's Test Test Results - Shoulder Special Tests Yergason's Biceps Test Results - Speed's Biceps Test Results - Grind Labrum Test Results + Biceps Load II Test Test Results - Lift-Off Rotator Cuff Test Results + Comments painful but able Belly Press Test Results - Hornblowers Sign Test Results + Neural Special Tests- Upper Body Reverse Phalen's Test Results - Phalen's Test Results - PT-OP-M Strength Start: 06/18/24 14:31 Freq: Status: Active Protocol: Document 06/18/24 14:32 NM (Rec: 06/18/24 15:40 NM [id number]) Shoulder Strength Shoulder Manual Muscle Testing Right Flexion 4 Good Abduction (C5) 4 Good External Rotation 4 Good Internal Rotation 4 Good Left Flexion 4 Good Extension 4- Good- External Rotation 4- Good- Internal Rotation 4 Good Comments No pain with resisted testing Elbow/Forearm Strength Elbow and Forearm Manual Muscle Testing Right Flexion (C6) 4+ Good+ Extension (C7) 4+ Good+ Left Flexion (C6) 4+ Good+ Extension (C7) 4+ Good+ PT-OP-Q Treatments Start: 06/18/24 14:31 Freq: Status: Active Protocol: Document 06/18/24 14:32 NM (Rec: 06/18/24 15:40 NM [id number]) Therapeutic Exercises Sidelying Exercises open book Sidelying Exercise Name HEP - for thoracic mobility Side bilateral Reps/Minutes 10 ea w/ increased time for all Comments cueing at scapula; limit ROM ea direction Sitting Exercises CT junction Sitting Exercise Name chicken wing seated Side bilateral Equipment Used with scapular retraction, hands positioned behind head Reps/Minutes 10x5 ea Self-Care/Home Management Treatment Education Patient Education Joint Protection,Pain Management Other Education Education on shoulder anatomy, kinetic chain between cervicothoracic spine and shoulder, reducing exercises that exacerbate symptoms. Brief education on sleeping position PT-OP-T Assessment and Plan Start: 06/18/24 14:31 Freq: Status: Active Protocol: Document 06/18/24 14:32 NM (Rec: 06/18/24 15:59 NM [id number]) Physical Therapy Assessment Rehab Potential Rehabilitation Potential Good Evaluation Complexity Number of Personal Factors/Comorbidities 0 Number of Body Systems Impaired 1-2 Clinical Presentation at Evaluation Stable Impairments Impairments Activity Tolerance,Functional Activities,Functional Mobility ,Integument,Pain,Posture,ROM, Sensation,Soft Tissue Mobility ,Strength Other Concerns Age Related Concerns PMH: latex allergy Barriers to Rehabilitation Pt's son will be returning in August, will not be able to attend in August Goals Five Impairment B shoulder strength 4/5 R, 4-/ 5 L Halfway Goal (LTG) Pt will increase B shoulder strength globally to at least 4+/5 without increase in pain in order to demonstrate improved strength for lifting, reaching ADLs and cross fit LTG Duration 8 weeks Four Impairment pain with sleeping Short Term Goal (STG) Pt will be educated on sleeping ergonomics in order to improve pain and symptom management STG Duration 3 weeks Halfway Goal (LTG) Pt will report not waking due to pain in B shoulders at least 75% of the time LTG Duration 8 weeks Three Impairment quickdash 22.7% impairment w/ ADLs and recreation Woodwork Salvage Inspector Goal (LTG) Pt will report no shoulder pain with playing violin or vacuuming in order to demonstrate improvement in ability to perform ADLs/IADLs and recreational activities without limitation LTG Duration 8 weeks Two Impairment cervical spine AROM limited R rotation 60 deg Short Term Goal (STG) Pt will improve R cervical spine rotation AROM to at least 70 deg in order to improve visual scanning for driving Halfway Goal (LTG) Pt will improve B cervical spine rotation > 75 deg in order to improve ability to perform visual scanning for driving and playing violin LTG Duration 8 weeks One Impairment L shoulder ROM limited Woodwork Salvage Inspector Goal (LTG) Pt will improve L shoulder flexion and abduction AROM to >165 deg in order to be able to perform reaching for cross fit exercises LTG Duration 8 weeks Assessment Summary Assessment Pt is a 39 y.o. presenting with B shoulder pain (L>R) and chronic neck pain. She has mild limitations in L shoulder AROM into flexion and abduction compared to RUE. Pt also has mild strength limitations in abduction and ER in L shoulder compared to RUE. Pt has mild L shoulder pain, no specific HARLEEN. She demonstrates increased anterior shoulder positioning B and scapular winging, especially on L side. Pt has limitations also in cervical spine AROM, in addition to reports of tingling into BUE at night. Tingling is not reproducible at carpal tunnel although presents similarly; likely related to sleeping position. Pt's symptoms are most consistent with L rotator cuff pathology and possible labral involvement; pt has no major strength deficits so likely not complete tear. However, if pt does not make improvements over 4-6 weeks, more advanced imaging may be warranted; cervical spine will also continue to be assessed in future sessions. Pt also has limitations at her CT junction and thoracic spine, in addition to several soft tissue restrictions which likely influence symptoms as well. PT educated pt on exam findings and plan of care; initiated thoracic mobility exercises. Pt would benefit from skilled PT for progressive B shoulder mobility and strengthening in addition to education regarding body mechanics and ergonomics in order to improve symptom management and ability to perform ADLs/IADLs. Physical Therapy Plan Frequency and Duration Frequency of Treatment 2x/Week Duration of treatment (weeks) 8 Plan of Care Start Date 06/18/24 Plan of Care End Date 08/16/24 Therapeutic Interventions Therapeutic Interventions Gait Training,Home Exercise Program,Joint Mobilizations, Manual Therapy,Neuromuscular Re-education,Orthotic/ Prosthetic Management,Patient/ Caregiver Education,Self-Care/ Home Management,Soft Tissue Mobilization,Therapeutic Activities Modalities Cold Pack/Ice Massage,Electric Stimulation,Hot Packs, Traction- Mechanical, Ultrasound Next Visit Focus/Plan Next Note Type Treatment Note Next Visit Plan latex allergy Assess VA, traction, epmty can . Review open book, CTJ. Trial thread needle w/ foam roller. Review STM with lacrosse ball . Trial lat stretch and lat mobilization. Initiate rotator cuff strengthening, serratus strengthening, scapular control (prone on ball ITWY) Manual: joint mobilizations, soft tissue mobilization
--- NOTE | 2024-06-18 16:04 | PT.OIE ---
Current Diagnoses Pain in left shoulder (06/20/24) Stiffness of left shoulder, not elsewhere classified (06/20/24) Weakness (06/20/24) Past Medical History (Last Reviewed 05/10/24 @ 08:28 by PRIMO Velasquez) Abnormal Pap smear of cervix (2012) Breast tenderness in female Constipation Heavy menses Right hip pain (2013) Stress incontinence Vaginal delivery Visit Care Team Role Provider Type PRIMO Velasquez Attending Provider [employer] Family Provider Primary Care Provider Referring Provider Specialty: Medical Address: [address] [place] [address], [facility] Email: [email or web address] Physical Therapy Initial Evaluation PT-OP-A Visit Information Start: 06/18/24 14:31 Freq: Status: Active Protocol: Document 06/20/24 09:29 NM (Rec: 06/18/24 15:40 NM [id number]) Out-Patient Physical Therapy Visit Information Visit Information Visit Type Initial Evaluation Visit Start Time 14:33 Visit Stop Time 15:18 Visit Number 08/18 Evaluation Information Evaluation Date 06/18/24 PT-OP-B Current Condition Start: 06/18/24 14:31 Freq: Status: Active Protocol: Document 06/20/24 09:29 NM (Rec: 06/18/24 15:40 NM [id number]) Current Condition History of Current Condition Current Complaints pain History of Current Condition Pt presents with L shoulder pain. Has had for a year. Reports that sleeping on her shoulder is hard (side-stomach ). Unsure HARLEEN. Reports that just started to bother her one day. She did just start playing violin 1 year ago, sore after session. Pt reports crunchy shoulder B, L>R. Reports lots of popping with ER/IR osiel in adduction; no locking or catching. Pt reports no pain with lifting. Feels pain with push ups. No hx of shoulder injuries on L side. She reports that on R side she had loss of strength in R arm. She gets numb tingling. Wakes her up at night. She reports constant neck pain, states that has been ongoing for years. States locking feeling in neck. Episode occured in past month, when she saw Dr. He. She had had 3 within past 5 years. She reports neck pain worse after workouts. Massage helps, painful episodes. She reports that she gets a burning sensation into her L shoulder over RTC. L handed. She reports that the pain wakes her up at night. R shoulder stopped bothering within last 2 weeks. She reports that she painting her house for past month, no increased numbness and tingling. Has been using lacrosse ball Current Functional Impairments (Reported) Functional Limitations- ADL's washing back, vacuuming Functional Limitations- Mobility/Gait wt lifting (cross fit) 4x/wk has been doing since 2013 previous yoga 6 months Functional Limitations- Recreation/ violin Hobbies PT-OP-C Subjective Start: 06/18/24 14:31 Freq: Status: Active Protocol: Document 06/20/24 09:29 NM (Rec: 06/18/24 15:40 NM [id number]) OP-PT Subjective Patient Comments Patient Comments Pt agrees to participate in evaluation Patient Questionnaires Quick Dash- Upper Extremity Quick Dash UE Score 22.7% impairment OP-PT Pain Assessment Location R shoulder Intensity 0 Scale Used Numeric (0 - 10) Description Aching,Phantom Description- Other worst: 2 Pain Aggravating Factors Position,Exercise Other Pain Aggravating Factors sleeping Pain Alleviating Factors Massage L shoulder Pain Location Details ant-lat shoulder over RC inserts, infraspinatus, teres in axilla Intensity 2 Scale Used Numeric (0 - 10) Description Aching,Burning,Dull Description- Other 3/10 worst Frequency Intermittent Variations/Patterns shakes hands to go away Pain Aggravating Factors Exercise Other Pain Aggravating Factors violin, sleeping Pain Alleviating Factors Massage Home Pain Medication Use Pain Medications Used No PT-OP-E Functional Tests Start: 06/18/24 14:31 Freq: Status: Active Protocol: Document 06/20/24 09:29 NM (Rec: 06/18/24 15:40 NM [id number]) Functional Tests Apley's Scratch Test Action 1- Left scapular spine; no inc pain Action 1- Right infraspinatus; no inc pain Action 2- Left T2; challenging but not painful Action 2- Right T4 Action 3- Left T8; demos winging Action 3- Right T7; demos winging PT-OP-F Manual Assessment Start: 06/18/24 14:31 Freq: Status: Active Protocol: Document 06/20/24 09:29 NM (Rec: 06/18/24 15:40 NM [id number]) Manual Assessments Soft Tissue Assessment Soft Tissue Mobility Assessment Tenderness over L rotator cuff and restrictions of periscapulars Joint Mobility Assessment Joint Mobility Assessment Decreased L scapular mobility, increased winging on L side and anterior humeral position; gentle overpressure improves symptoms. No AC joint compression PT-OP-J Posture/Palpation/Skin Start: 06/18/24 14:31 Freq: Status: Active Protocol: Document 06/20/24 09:29 NM (Rec: 06/18/24 15:40 NM [id number]) Posture Evaluation Position Standing Head/C-Spine Posture Forward Head Shoulder Posture (L) Rounded,(R) Rounded Scapula Posture (L) Winged,(R) Winged Arm Posture (L) Internally Rotated,(R) Internally Rotated Pelvis Posture Anteriorly Tilted Hip Posture (L) Externally Rotated,(R) Externally Rotated Palpation Assessment Location R shoulder Palpation Details No tenderness over anterior, lateral, or posterior shoulder L shoulder Palpation Findings Tenderness Palpation Details Tenderness to palpation over biceps long head tendon, lateral shoulder over rotator cuff insertion and tender when following tendon to supraspinatus, infraspinatus, and teres minor Increased restrictions of periscapulars on L side, cervical paraspinals especially at CT junction Anterior humeral position PT-OP-K Range of Motion Start: 06/18/24 14:31 Freq: Status: Active Protocol: Document 06/20/24 09:29 NM (Rec: 06/18/24 15:40 NM [id number]) Cervical Spine Range of Motion Cervical Spine Active Degrees Flexion 55 Extension 50 Rotation Left 75 Rotation Right 60 Lateral Flexion Left 50 Lateral Flexion Right 45 Comments mild pain at CT junction w/ ext, rot, RLF Shoulder Goniometric Range of Motion Shoulder right Flexion 160 Extension 60 Abduction 170 External Rotation at 90 degrees 90 Abduction External Rotation at 0 degrees Abduction 55 left Flexion 155 Extension 55 Abduction 165 External Rotation at 90 degrees 80 Abduction External Rotation at 0 degrees Abduction 50 Comments pain and catch feeling w/ 110 deg flex, 125 deg abd; decreased catch w/ increased elevation PROM: full passive ER at 90/90 supine; no pain PT-OP-L Special Tests Start: 06/18/24 14:31 Freq: Status: Active Protocol: Document 06/20/24 09:29 NM (Rec: 06/18/24 15:40 NM [id number]) Special Tests Cervical Spine Special Tests Spurling's Test Test Results - Shoulder Special Tests Yergason's Biceps Test Results - Speed's Biceps Test Results - Grind Labrum Test Results + Biceps Load II Test Test Results - Lift-Off Rotator Cuff Test Results + Comments painful but able Belly Press Test Results - Hornblowers Sign Test Results + Neural Special Tests- Upper Body Reverse Phalen's Test Results - Phalen's Test Results - PT-OP-M Strength Start: 06/18/24 14:31 Freq: Status: Active Protocol: Document 06/20/24 09:29 NM (Rec: 06/18/24 15:40 NM [id number]) Shoulder Strength Shoulder Manual Muscle Testing Right Flexion 4 Good Abduction (C5) 4 Good External Rotation 4 Good Internal Rotation 4 Good Left Flexion 4 Good Extension 4- Good- External Rotation 4- Good- Internal Rotation 4 Good Comments No pain with resisted testing Elbow/Forearm Strength Elbow and Forearm Manual Muscle Testing Right Flexion (C6) 4+ Good+ Extension (C7) 4+ Good+ Left Flexion (C6) 4+ Good+ Extension (C7) 4+ Good+ PT-OP-Q Treatments Start: 06/18/24 14:31 Freq: Status: Active Protocol: Document 06/20/24 09:29 NM (Rec: 06/18/24 15:40 NM [id number]) Therapeutic Exercises Sidelying Exercises open book Sidelying Exercise Name HEP - for thoracic mobility Side bilateral Reps/Minutes 10 ea w/ increased time for all Comments cueing at scapula; limit ROM ea direction Sitting Exercises CT junction Sitting Exercise Name chicken wing seated Side bilateral Equipment Used with scapular retraction, hands positioned behind head Reps/Minutes 10x5 ea Self-Care/Home Management Treatment Education Patient Education Joint Protection,Pain Management Other Education Education on shoulder anatomy, kinetic chain between cervicothoracic spine and shoulder, reducing exercises that exacerbate symptoms. Brief education on sleeping position PT-OP-T Assessment and Plan Start: 06/18/24 14:31 Freq: Status: Active Protocol: Document 06/20/24 09:29 NM (Rec: 06/18/24 15:59 NM [id number]) Physical Therapy Assessment Rehab Potential Rehabilitation Potential Good Evaluation Complexity Number of Personal Factors/Comorbidities 0 Number of Body Systems Impaired 1-2 Clinical Presentation at Evaluation Stable Impairments Impairments Activity Tolerance,Functional Activities,Functional Mobility ,Integument,Pain,Posture,ROM, Sensation,Soft Tissue Mobility ,Strength Other Concerns Age Related Concerns PMH: latex allergy Barriers to Rehabilitation Pt's son will be returning in August, will not be able to attend in August Goals Five Impairment B shoulder strength 4/5 R, 4-/ 5 L Fdc Goal (LTG) Pt will increase B shoulder strength globally to at least 4+/5 without increase in pain in order to demonstrate improved strength for lifting, reaching ADLs and cross fit LTG Duration 8 weeks Four Impairment pain with sleeping Short Term Goal (STG) Pt will be educated on sleeping ergonomics in order to improve pain and symptom management STG Duration 3 weeks Fdc Goal (LTG) Pt will report not waking due to pain in B shoulders at least 75% of the time LTG Duration 8 weeks Three Impairment quickdash 22.7% impairment w/ ADLs and recreation Dip Brazier Goal (LTG) Pt will report no shoulder pain with playing violin or vacuuming in order to demonstrate improvement in ability to perform ADLs/IADLs and recreational activities without limitation LTG Duration 8 weeks Two Impairment cervical spine AROM limited R rotation 60 deg Short Term Goal (STG) Pt will improve R cervical spine rotation AROM to at least 70 deg in order to improve visual scanning for driving Fdc Goal (LTG) Pt will improve B cervical spine rotation > 75 deg in order to improve ability to perform visual scanning for driving and playing violin LTG Duration 8 weeks One Impairment L shoulder ROM limited Dip [place]razier Goal (LTG) Pt will improve L shoulder flexion and abduction AROM to >165 deg in order to be able to perform reaching for cross fit exercises LTG Duration 8 weeks Assessment Summary Assessment Pt is a 39 y.o. presenting with B shoulder pain (L>R) and chronic neck pain. She has mild limitations in L shoulder AROM into flexion and abduction compared to RUE. Pt also has mild strength limitations in abduction and ER in L shoulder compared to RUE. Pt has mild L shoulder pain, no specific HARLEEN. She demonstrates increased anterior shoulder positioning B and scapular winging, especially on L side. Pt has limitations also in cervical spine AROM, in addition to reports of tingling into BUE at night. Tingling is not reproducible at carpal tunnel although presents similarly; likely related to sleeping position. Pt's symptoms are most consistent with L rotator cuff pathology and possible labral involvement; pt has no major strength deficits so likely not complete tear. However, if pt does not make improvements over 4-6 weeks, more advanced imaging may be warranted; cervical spine will also continue to be assessed in future sessions. Pt also has limitations at her CT junction and thoracic spine, in addition to several soft tissue restrictions which likely influence symptoms as well. PT educated pt on exam findings and plan of care; initiated thoracic mobility exercises. Pt would benefit from skilled PT for progressive B shoulder mobility and strengthening in addition to education regarding body mechanics and ergonomics in order to improve symptom management and ability to perform ADLs/IADLs. Physical Therapy Plan Frequency and Duration Frequency of Treatment 2x/Week Duration of treatment (weeks) 8 Plan of Care Start Date 06/18/24 Plan of Care End Date 08/16/24 Therapeutic Interventions Therapeutic Interventions Gait Training,Home Exercise Program,Joint Mobilizations, Manual Therapy,Neuromuscular Re-education,Orthotic/ Prosthetic Management,Patient/ Caregiver Education,Self-Care/ Home Management,Soft Tissue Mobilization,Therapeutic Activities Modalities Cold Pack/Ice Massage,Electric Stimulation,Hot Packs, Traction- Mechanical, Ultrasound Next Visit Focus/Plan Next Note Type Treatment Note Next Visit Plan latex allergy Assess VA, traction, epmty can . Review open book, CTJ. Trial thread needle w/ foam roller. Review STM with lacrosse ball . Trial lat stretch and lat mobilization. Initiate rotator cuff strengthening, serratus strengthening, scapular control (prone on ball ITWY) Manual: joint mobilizations, soft tissue mobilization
--- NOTE | 2024-06-20 09:28 | PT.OTN ---
Current Diagnoses Pain in left shoulder (06/20/24) Stiffness of left shoulder, not elsewhere classified (06/20/24) Weakness (06/20/24) Physical Therapy Treatment Note PT-OP-A Visit Information Start: 06/18/24 14:31 Freq: Status: Active Protocol: Document 06/20/24 08:16 NM (Rec: 06/20/24 09:26 NM [id number]) Out-Patient Physical Therapy Visit Information Visit Information Visit Type Treatment Note Visit Start Time 08:17 Visit Stop Time 09:03 Visit Number 09/18 Evaluation Information Evaluation Date 06/18/24 PT-OP-B Current Condition Start: 06/18/24 14:31 Freq: Status: Active Protocol: Document 06/18/24 14:32 NM (Rec: 06/18/24 15:40 NM [id number]) Current Condition History of Current Condition Current Complaints pain History of Current Condition Pt presents with L shoulder pain. Has had for a year. Reports that sleeping on her shoulder is hard (side-stomach ). Unsure HARLEEN. Reports that just started to bother her one day. She did just start playing violin 1 year ago, sore after session. Pt reports crunchy shoulder B, L>R. Reports lots of popping with ER/IR osiel in adduction; no locking or catching. Pt reports no pain with lifting. Feels pain with push ups. No hx of shoulder injuries on L side. She reports that on R side she had loss of strength in R arm. She gets numb tingling. Wakes her up at night. She reports constant neck pain, states that has been ongoing for years. States locking feeling in neck. Episode occured in past month, when she saw Dr. He. She had had 3 within past 5 years. She reports neck pain worse after workouts. Massage helps, painful episodes. She reports that she gets a burning sensation into her L shoulder over RTC. L handed. She reports that the pain wakes her up at night. R shoulder stopped bothering within last 2 weeks. She reports that she painting her house for past month, no increased numbness and tingling. Has been using lacrosse ball Current Functional Impairments (Reported) Functional Limitations- ADL's washing back, vacuuming Functional Limitations- Mobility/Gait wt lifting (cross fit) 4x/wk has been doing since 2013 previous yoga 6 months Functional Limitations- Recreation/ violin Hobbies PT-OP-C Subjective Start: 06/18/24 14:31 Freq: Status: Active Protocol: Document 06/20/24 08:16 NM (Rec: 06/20/24 09:26 NM [id number]) OP-PT Subjective Patient Comments Patient Comments Pt reports that her HEP going well. She reports more discomfort in neck/shoulder. No change in shoulder. PT-OP-E Functional Tests Start: 06/18/24 14:31 Freq: Status: Active Protocol: Document 06/18/24 14:32 NM (Rec: 06/18/24 15:40 NM [id number]) Functional Tests Apley's Scratch Test Action 1- Left scapular spine; no inc pain Action 1- Right infraspinatus; no inc pain Action 2- Left T2; challenging but not painful Action 2- Right T4 Action 3- Left T8; demos winging Action 3- Right T7; demos winging PT-OP-F Manual Assessment Start: 06/18/24 14:31 Freq: Status: Active Protocol: Document 06/18/24 14:32 NM (Rec: 06/18/24 15:40 NM [id number]) Manual Assessments Soft Tissue Assessment Soft Tissue Mobility Assessment Tenderness over L rotator cuff and restrictions of periscapulars Joint Mobility Assessment Joint Mobility Assessment Decreased L scapular mobility, increased winging on L side and anterior humeral position; gentle overpressure improves symptoms. No AC joint compression PT-OP-J Posture/Palpation/Skin Start: 06/18/24 14:31 Freq: Status: Active Protocol: Document 06/18/24 14:32 NM (Rec: 06/18/24 15:40 NM [id number]) Posture Evaluation Position Standing Head/C-Spine Posture Forward Head Shoulder Posture (L) Rounded,(R) Rounded Scapula Posture (L) Winged,(R) Winged Arm Posture (L) Internally Rotated,(R) Internally Rotated Pelvis Posture Anteriorly Tilted Hip Posture (L) Externally Rotated,(R) Externally Rotated Palpation Assessment Location R shoulder Palpation Details No tenderness over anterior, lateral, or posterior shoulder L shoulder Palpation Findings Tenderness Palpation Details Tenderness to palpation over biceps long head tendon, lateral shoulder over rotator cuff insertion and tender when following tendon to supraspinatus, infraspinatus, and teres minor Increased restrictions of periscapulars on L side, cervical paraspinals especially at CT junction Anterior humeral position PT-OP-K Range of Motion Start: 06/18/24 14:31 Freq: Status: Active Protocol: Document 06/18/24 14:32 NM (Rec: 06/18/24 15:40 NM [id number]) Cervical Spine Range of Motion Cervical Spine Active Degrees Flexion 55 Extension 50 Rotation Left 75 Rotation Right 60 Lateral Flexion Left 50 Lateral Flexion Right 45 Comments mild pain at CT junction w/ ext, rot, RLF Shoulder Goniometric Range of Motion Shoulder right Flexion 160 Extension 60 Abduction 170 External Rotation at 90 degrees 90 Abduction External Rotation at 0 degrees Abduction 55 left Flexion 155 Extension 55 Abduction 165 External Rotation at 90 degrees 80 Abduction External Rotation at 0 degrees Abduction 50 Comments pain and catch feeling w/ 110 deg flex, 125 deg abd; decreased catch w/ increased elevation PROM: full passive ER at 90/90 supine; no pain PT-OP-L Special Tests Start: 06/18/24 14:31 Freq: Status: Active Protocol: Document 06/20/24 08:16 NM (Rec: 06/20/24 09:26 NM [id number]) Special Tests Cervical Spine Special Tests Vertebral artery screen Test Results intact cranial nerves, BP 115/ 71 mmHg; no symptoms w/ positional testing Comments auscultation/palpation of carotid a and heart WFL distraction Test Results + Comments reports decreased burning sensation Spurling's Test Test Results - Shoulder Special Tests Empty Can Test Results - Comments reports clicking w/ rotation but no pain with resisted testing Yergason's Biceps Test Results - Speed's Biceps Test Results - Grind Labrum Test Results + Biceps Load II Test Test Results - Lift-Off Rotator Cuff Test Results + Comments painful but able Belly Press Test Results - Hornblowers Sign Test Results + PT-OP-M Strength Start: 06/18/24 14:31 Freq: Status: Active Protocol: Document 06/18/24 14:32 NM (Rec: 06/18/24 15:40 NM [id number]) Shoulder Strength Shoulder Manual Muscle Testing Right Flexion 4 Good Abduction (C5) 4 Good External Rotation 4 Good Internal Rotation 4 Good Left Flexion 4 Good Extension 4- Good- External Rotation 4- Good- Internal Rotation 4 Good Comments No pain with resisted testing Elbow/Forearm Strength Elbow and Forearm Manual Muscle Testing Right Flexion (C6) 4+ Good+ Extension (C7) 4+ Good+ Left Flexion (C6) 4+ Good+ Extension (C7) 4+ Good+ PT-OP-Q Treatments Start: 06/18/24 14:31 Freq: Status: Active Protocol: Document 06/20/24 08:16 NM (Rec: 06/20/24 09:26 NM [id number]) Therapeutic Exercises Supine Exercises pec stretch Supine Exercise Name hands behind head Side bilateral Reps/Minutes 60 foam roller Supine Exercise Name 1. TS ext w/ band, 2. HABD Side bilateral Resistance lvl 2 latex free band Reps/Minutes 1. 10 ea, 2. 15 Comments pain free; Feels good Prone Exercises prone ITWY Side bilateral Resistance AROM Equipment Used head on towel roll, mat on floor Reps/Minutes 15 ea Comments cued less ROM on T d/t repetitive clicking; pain free Sidelying Exercises open book Sidelying Exercise Name HEP review - for thoracic mobility Side bilateral Reps/Minutes 10 ea w/ PT facil at scap Comments demos winging; cued for no shldr elevation Sitting Exercises CT junction Sitting Exercise Name chicken wing-supine on foam roller Side bilateral Equipment Used with scapular retraction, hands positioned behind head Reps/Minutes 10x5 ea Manual Therapy Treatment Consent Patient gave verbal consent for manual Yes treatment Soft Tissue Mobilization chest/trunk Body Location B pecs, lats, rhomboids, traps Mobilization Type Rolling,Strumming Intensity/Depth Moderate Body Position Supine Comments Monitored for pain. Increased restrictions on L side, compared to R side. Educated on use of MWM with lacrosse ball L shoulder Body Location subscapularis, infraspinatus, suprapinatus Mobilization Type Rolling,Sustained Pressure, Trigger Point Release Intensity/Depth Moderate Body Position Sidelying Comments Trigger points at infraspinatus. Reduced with manual treatment but not completely resolved. Monitored for pain cervical spine Body Location SOR, paraspinals, LS, UT, SCM, scalenes Mobilization Type Rolling,Sustained Pressure, Trigger Point Release Intensity/Depth Superficial Body Position supine,sidelying Comments Monitored for pain. Increased restrictions along L sided paraspinals, palpable stringy nodule (not painful) along L side. Educated on use of STM and gentle Joint Mobilizations L GHJ Direction post Grade III Body Position Supine Reps/Duration 2x30 Comments with posterior gapping at 90 deg abd. Monitored for pain Self-Care/Home Management Treatment Education Patient Education Home Exercise Program,Joint Protection Other Education Education on use of lacrosse ball (pt already performing at home) on muscles around scapula and on scapula; education on intensity and performing about 30 sec at ea spot Educated to avoid activities that cause repetitive L shoulder popping or clicking PT-OP-T Assessment and Plan Start: 06/18/24 14:31 Freq: Status: Active Protocol: Document 06/20/24 08:16 NM (Rec: 06/20/24 09:26 NM [id number]) Physical Therapy Assessment Goals Five Impairment B shoulder strength 4/5 R, 4-/ 5 L Airline Ticket Agent Goal (LTG) Pt will increase B shoulder strength globally to at least 4+/5 without increase in pain in order to demonstrate improved strength for lifting, reaching ADLs and cross fit LTG Duration 8 weeks Four Impairment pain with sleeping Short Term Goal (STG) Pt will be educated on sleeping ergonomics in order to improve pain and symptom management STG Duration 3 weeks Care Home Goal (LTG) Pt will report not waking due to pain in B shoulders at least 75% of the time LTG Duration 8 weeks Three Impairment quickdash 22.7% impairment w/ ADLs and recreation Care Home Goal (LTG) Pt will report no shoulder pain with playing violin or vacuuming in order to demonstrate improvement in ability to perform ADLs/IADLs and recreational activities without limitation LTG Duration 8 weeks Two Impairment cervical spine AROM limited R rotation 60 deg Short Term Goal (STG) Pt will improve R cervical spine rotation AROM to at least 70 deg in order to improve visual scanning for driving Care Home Goal (LTG) Pt will improve B cervical spine rotation > 75 deg in order to improve ability to perform visual scanning for driving and playing violin LTG Duration 8 weeks One Impairment L shoulder ROM limited Airline Ticket Agent Goal (LTG) Pt will improve L shoulder flexion and abduction AROM to >165 deg in order to be able to perform reaching for cross fit exercises LTG Duration 8 weeks Assessment Summary Assessment Pt tolerated session well and has no increase in L shoulder pain with activities. She does have instances of increased L GHJ clicking with shoulder HABD in prone especially at her end ranges; educated to avoid motions that cause repetitive clicking. Initiated periscapular strengthening to facilitate improved scapular positioning with L arm elevation. Demos L scapular winging, which also contributes to clicking at scapula. L sided cervicothoracic mobility more limited than R side but about 50% improvement in ROM in sidelying compared to evaluation. Pt's tingling into B hands at night likely impacted by shortened B pectoralis; demos relief with cervical traction testing as well. Pt would benefit from skilled PT for progressive spinal flexibility and L shoulder/scapular strenghtening in order to improve symptom management with recreational activities and ADLs. Physical Therapy Plan Frequency and Duration Frequency of Treatment 2x/Week Duration of treatment (weeks) 8 Plan of Care Start Date 06/18/24 Plan of Care End Date 08/16/24 Therapeutic Interventions Therapeutic Interventions Gait Training,Home Exercise Program,Joint Mobilizations, Manual Therapy,Neuromuscular Re-education,Orthotic/ Prosthetic Management,Patient/ Caregiver Education,Self-Care/ Home Management,Soft Tissue Mobilization,Therapeutic Activities Modalities Cold Pack/Ice Massage,Electric Stimulation,Hot Packs, Traction- Mechanical, Ultrasound Next Visit Focus/Plan Next Note Type Treatment Note Next Visit Plan latex allergy Initiate serratus anterior strengthening (wall slide, foam roller, scap push up or plank, shoulder stability w/ shoulder taps. Trial sidelying trio for RTC strength. Trial thread needle w/ foam roller. Review STM with lacrosse ball- pec, rhomboid, subscap, lat.. Trial lat stretch and lat mobilization. Initiate rotator cuff strengthening w/ bands, serratus strengthening, scapular control (prone on ball ITWY) Manual: joint mobilizations, soft tissue mobilization
--- NOTE | 2024-06-25 12:26 | PT.OTN ---
Current Diagnoses Pain in left shoulder (06/25/24) Stiffness of left shoulder, not elsewhere classified (06/25/24) Weakness (06/25/24) Physical Therapy Treatment Note PT-OP-A Visit Information Start: 06/18/24 14:31 Freq: Status: Active Protocol: Document 06/25/24 08:59 AB (Rec: 06/25/24 12:26 AB [id number]) Out-Patient Physical Therapy Visit Information Visit Information Visit Type Treatment Note Visit Start Time 10:46 Visit Stop Time 11:31 Visit Number 3 Number of FIRE LIEUTENANT Visits 1 Evaluation Information Evaluation Date 06/18/24 PT-OP-B Current Condition Start: 06/18/24 14:31 Freq: Status: Active Protocol: Document 06/18/24 14:33 NM (Rec: 06/18/24 15:40 NM [id number]) Current Condition History of Current Condition Current Complaints pain History of Current Condition Pt presents with L shoulder pain. Has had for a year. Reports that sleeping on her shoulder is hard (side-stomach ). Unsure HARLEEN. Reports that just started to bother her one day. She did just start playing violin 1 year ago, sore after session. Pt reports crunchy shoulder B, L>R. Reports lots of popping with ER/IR soiel in adduction; no locking or catching. Pt reports no pain with lifting. Feels pain with push ups. No hx of shoulder injuries on L side. She reports that on R side she had loss of strength in R arm. She gets numb tingling. Wakes her up at night. She reports constant neck pain, states that has been ongoing for years. States locking feeling in neck. Episode occured in past month, when she saw Dr. He. She had had 3 within past 5 years. She reports neck pain worse after workouts. Massage helps, painful episodes. She reports that she gets a burning sensation into her L shoulder over RTC. L handed. She reports that the pain wakes her up at night. R shoulder stopped bothering within last 2 weeks. She reports that she painting her house for past month, no increased numbness and tingling. Has been using lacrosse ball Current Functional Impairments (Reported) Functional Limitations- ADL's washing back, vacuuming Functional Limitations- Mobility/Gait wt lifting (cross fit) 4x/wk has been doing since 2013 previous yoga 6 months Functional Limitations- Recreation/ violin Hobbies PT-OP-C Subjective Start: 06/18/24 14:31 Freq: Status: Active Protocol: Document 06/25/24 08:59 AB (Rec: 06/25/24 12:26 AB [id number]) OP-PT Subjective Patient Comments Patient Comments Patient reports she is the same, felt sore post previous session, was resolved by the next day. AROM left shoulder flexion 145 deg start of session. PT-OP-E Functional Tests Start: 06/18/24 14:31 Freq: Status: Active Protocol: Document 06/18/24 14:33 NM (Rec: 06/18/24 15:40 NM [id number]) Functional Tests Apley's Scratch Test Action 1- Left scapular spine; no inc pain Action 1- Right infraspinatus; no inc pain Action 2- Left T2; challenging but not painful Action 2- Right T4 Action 3- Left T8; demos winging Action 3- Right T7; demos winging PT-OP-F Manual Assessment Start: 06/18/24 14:31 Freq: Status: Active Protocol: Document 06/18/24 14:33 NM (Rec: 06/18/24 15:40 NM [id number]) Manual Assessments Soft Tissue Assessment Soft Tissue Mobility Assessment Tenderness over L rotator cuff and restrictions of periscapulars Joint Mobility Assessment Joint Mobility Assessment Decreased L scapular mobility, increased winging on L side and anterior humeral position; gentle overpressure improves symptoms. No AC joint compression PT-OP-J Posture/Palpation/Skin Start: 06/18/24 14:31 Freq: Status: Active Protocol: Document 06/18/24 14:33 NM (Rec: 06/18/24 15:40 NM [id number]) Posture Evaluation Position Standing Head/C-Spine Posture Forward Head Shoulder Posture (L) Rounded,(R) Rounded Scapula Posture (L) Winged,(R) Winged Arm Posture (L) Internally Rotated,(R) Internally Rotated Pelvis Posture Anteriorly Tilted Hip Posture (L) Externally Rotated,(R) Externally Rotated Palpation Assessment Location R shoulder Palpation Details No tenderness over anterior, lateral, or posterior shoulder L shoulder Palpation Findings Tenderness Palpation Details Tenderness to palpation over biceps long head tendon, lateral shoulder over rotator cuff insertion and tender when following tendon to supraspinatus, infraspinatus, and teres minor Increased restrictions of periscapulars on L side, cervical paraspinals especially at CT junction Anterior humeral position PT-OP-K Range of Motion Start: 06/18/24 14:31 Freq: Status: Active Protocol: Document 06/18/24 14:33 NM (Rec: 06/18/24 15:40 NM [id number]) Cervical Spine Range of Motion Cervical Spine Active Degrees Flexion 55 Extension 50 Rotation Left 75 Rotation Right 60 Lateral Flexion Left 50 Lateral Flexion Right 45 Comments mild pain at CT junction w/ ext, rot, RLF Shoulder Goniometric Range of Motion Shoulder right Flexion 160 Extension 60 Abduction 170 External Rotation at 90 degrees 90 Abduction External Rotation at 0 degrees Abduction 55 left Flexion 155 Extension 55 Abduction 165 External Rotation at 90 degrees 80 Abduction External Rotation at 0 degrees Abduction 50 Comments pain and catch feeling w/ 110 deg flex, 125 deg abd; decreased catch w/ increased elevation PROM: full passive ER at 90/90 supine; no pain PT-OP-L Special Tests Start: 06/18/24 14:31 Freq: Status: Active Protocol: Document 06/20/24 08:16 NM (Rec: 06/20/24 09:26 NM [id number]) Special Tests Cervical Spine Special Tests Vertebral artery screen Test Results intact cranial nerves, BP 115/ 71 mmHg; no symptoms w/ positional testing Comments auscultation/palpation of carotid a and heart WFL distraction Test Results + Comments reports decreased burning sensation Spurling's Test Test Results - Shoulder Special Tests Empty Can Test Results - Comments reports clicking w/ rotation but no pain with resisted testing Yergason's Biceps Test Results - Speed's Biceps Test Results - Grind Labrum Test Results + Biceps Load II Test Test Results - Lift-Off Rotator Cuff Test Results + Comments painful but able Belly Press Test Results - Hornblowers Sign Test Results + PT-OP-M Strength Start: 06/18/24 14:31 Freq: Status: Active Protocol: Document 06/18/24 14:33 NM (Rec: 06/18/24 15:40 NM [id number]) Shoulder Strength Shoulder Manual Muscle Testing Right Flexion 4 Good Abduction (C5) 4 Good External Rotation 4 Good Internal Rotation 4 Good Left Flexion 4 Good Extension 4- Good- External Rotation 4- Good- Internal Rotation 4 Good Comments No pain with resisted testing Elbow/Forearm Strength Elbow and Forearm Manual Muscle Testing Right Flexion (C6) 4+ Good+ Extension (C7) 4+ Good+ Left Flexion (C6) 4+ Good+ Extension (C7) 4+ Good+ PT-OP-Q Treatments Start: 06/18/24 14:31 Freq: Status: Active Protocol: Document 06/25/24 08:59 AB (Rec: 06/25/24 12:26 AB [id number]) Therapeutic Exercises Supine Exercises CS rotation Supine Exercise Name on occipital float Reps/Minutes one minute Comments Verbal cues to rotate slowly in pain free range Sidelying Exercises open book Sidelying Exercise Name HEP review - for thoracic mobility Side bilateral Reps/Minutes X5 Comments post manual Sitting Exercises short sit Sitting Exercise Name side sit to forearm to upright Side bilateral Reps/Minutes X10 Comments verbal cues monitored for pain scalene stretch Sitting Exercise Name holding chair Side bilateral Reps/Minutes 60 sec each side with AROM flex/ext intermittently Comments Verbal cues Standing Exercises serratus wall slide Standing Exercise Name HEP Side bilateral Reps/Minutes X10 Comments verbal and visual cues Other Exercises quadruped CS rotation Side bilateral Reps/Minutes X10 Comments verbal cues to perform slowly in pain free range Manual Therapy Treatment Consent Patient gave verbal consent for manual Yes treatment Soft Tissue Mobilization L shoulder Body Location pec, supr, infra, rhomb post cuff, biceps Mobilization Type Cross-Friction,Rolling, Sustained Pressure cervical spine Body Location paraspinals, LS, UT, SCM, scalenes Mobilization Type Cross-Friction,Rolling, Sustained Pressure Intensity/Depth Superficial Body Position seated Comments to moderate prior to using occipital float Joint Mobilizations scapular mobilization Joint left Direction into depression and adduction Grade IV Body Position X10 each L GHJ Direction post and inf Grade III Body Position Supine Reps/Duration X10 X 3 Comments pain PT-OP-T Assessment and Plan Start: 06/18/24 14:31 Freq: Status: Active Protocol: Document 06/25/24 08:59 AB (Rec: 06/25/24 12:26 AB [id number]) Physical Therapy Assessment Goals Five Impairment B shoulder strength 4/5 R, 4-/ 5 L Pharmacy Operations Coordinator Goal (LTG) Pt will increase B shoulder strength globally to at least 4+/5 without increase in pain in order to demonstrate improved strength for lifting, reaching ADLs and cross fit LTG Duration 8 weeks Four Impairment pain with sleeping Short Term Goal (STG) Pt will be educated on sleeping ergonomics in order to improve pain and symptom management STG Duration 3 weeks [facility] Goal (LTG) Pt will report not waking due to pain in B shoulders at least 75% of the time LTG Duration 8 weeks Three Impairment quickdash 22.7% impairment w/ ADLs and recreation [facility] Goal (LTG) Pt will report no shoulder pain with playing violin or vacuuming in order to demonstrate improvement in ability to perform ADLs/IADLs and recreational activities without limitation LTG Duration 8 weeks Two Impairment cervical spine AROM limited R rotation 60 deg Short Term Goal (STG) Pt will improve R cervical spine rotation AROM to at least 70 deg in order to improve visual scanning for driving Pharmacy Operations Coordinator Goal (LTG) Pt will improve B cervical spine rotation > 75 deg in order to improve ability to perform visual scanning for driving and playing violin LTG Duration 8 weeks One Impairment L shoulder ROM limited [facility] Goal (LTG) Pt will improve L shoulder flexion and abduction AROM to >165 deg in order to be able to perform reaching for cross fit exercises LTG Duration 8 weeks Assessment Summary Assessment 152 deg AROM left shoulder flexion post manual and exercise. Patient reports having no pain end of session. Physical Therapy Plan Frequency and Duration Frequency of Treatment 2x/Week Duration of treatment (weeks) 8 Plan of Care Start Date 06/18/24 Plan of Care End Date 08/16/24 Next Visit Focus/Plan Next Note Type Treatment Note Next Visit Plan latex allergy Initiate serratus anterior strengthening (push up or plank, shoulder stability w/ shoulder taps. Trial sidelying trio for RTC strength. Trial thread needle w/ foam roller. Review STM with lacrosse ball- pec, rhomboid, subscap, lat.. Trial lat stretch and lat mobilization. Initiate rotator cuff strengthening w/ bands, serratus strengthening, scapular control (prone on ball ITWY) Manual: joint mobilizations, soft tissue mobilization
--- NOTE | 2024-06-27 10:37 | PT.OTN ---
Current Diagnoses Pain in left shoulder (06/27/24) Stiffness of left shoulder, not elsewhere classified (06/27/24) Weakness (06/27/24) Physical Therapy Treatment Note PT-OP-A Visit Information Start: 06/18/24 14:31 Freq: Status: Active Protocol: Document 06/27/24 08:07 AB (Rec: 06/27/24 10:36 AB [id number]) Out-Patient Physical Therapy Visit Information Visit Information Visit Type Treatment Note Visit Start Time 08:16 Visit Stop Time 09:02 Visit Number 4 Number of THREAD SEPARATOR Visits 2 Evaluation Information Evaluation Date 06/18/24 PT-OP-B Current Condition Start: 06/18/24 14:31 Freq: Status: Active Protocol: Document 06/18/24 14:33 NM (Rec: 06/18/24 15:40 NM [id number]) Current Condition History of Current Condition Current Complaints pain History of Current Condition Pt presents with L shoulder pain. Has had for a year. Reports that sleeping on her shoulder is hard (side-stomach ). Unsure HARLEEN. Reports that just started to bother her one day. She did just start playing violin 1 year ago, sore after session. Pt reports crunchy shoulder B, L>R. Reports lots of popping with ER/IR osiel in adduction; no locking or catching. Pt reports no pain with lifting. Feels pain with push ups. No hx of shoulder injuries on L side. She reports that on R side she had loss of strength in R arm. She gets numb tingling. Wakes her up at night. She reports constant neck pain, states that has been ongoing for years. States locking feeling in neck. Episode occured in past month, when she saw Dr. He. She had had 3 within past 5 years. She reports neck pain worse after workouts. Massage helps, painful episodes. She reports that she gets a burning sensation into her L shoulder over RTC. L handed. She reports that the pain wakes her up at night. R shoulder stopped bothering within last 2 weeks. She reports that she painting her house for past month, no increased numbness and tingling. Has been using lacrosse ball Current Functional Impairments (Reported) Functional Limitations- ADL's washing back, vacuuming Functional Limitations- Mobility/Gait wt lifting (cross fit) 4x/wk has been doing since 2013 previous yoga 6 months Functional Limitations- Recreation/ violin Hobbies PT-OP-C Subjective Start: 06/18/24 14:31 Freq: Status: Active Protocol: Document 06/27/24 08:07 AB (Rec: 06/27/24 10:36 AB [id number]) OP-PT Subjective Patient Comments Patient Comments Patient reports the neck and shoulder are the same, neck burning at the end of the day persists and certain movements hurt the soulder. AROM 146 deg left shoulder flexion start of session. PT-OP-E Functional Tests Start: 06/18/24 14:31 Freq: Status: Active Protocol: Document 06/18/24 14:33 NM (Rec: 06/18/24 15:40 NM [id number]) Functional Tests Apley's Scratch Test Action 1- Left scapular spine; no inc pain Action 1- Right infraspinatus; no inc pain Action 2- Left T2; challenging but not painful Action 2- Right T4 Action 3- Left T8; demos winging Action 3- Right T7; demos winging PT-OP-F Manual Assessment Start: 06/18/24 14:31 Freq: Status: Active Protocol: Document 06/18/24 14:33 NM (Rec: 06/18/24 15:40 NM [id number]) Manual Assessments Soft Tissue Assessment Soft Tissue Mobility Assessment Tenderness over L rotator cuff and restrictions of periscapulars Joint Mobility Assessment Joint Mobility Assessment Decreased L scapular mobility, increased winging on L side and anterior humeral position; gentle overpressure improves symptoms. No AC joint compression PT-OP-J Posture/Palpation/Skin Start: 06/18/24 14:31 Freq: Status: Active Protocol: Document 06/18/24 14:33 NM (Rec: 06/18/24 15:40 NM [id number]) Posture Evaluation Position Standing Head/C-Spine Posture Forward Head Shoulder Posture (L) Rounded,(R) Rounded Scapula Posture (L) Winged,(R) Winged Arm Posture (L) Internally Rotated,(R) Internally Rotated Pelvis Posture Anteriorly Tilted Hip Posture (L) Externally Rotated,(R) Externally Rotated Palpation Assessment Location R shoulder Palpation Details No tenderness over anterior, lateral, or posterior shoulder L shoulder Palpation Findings Tenderness Palpation Details Tenderness to palpation over biceps long head tendon, lateral shoulder over rotator cuff insertion and tender when following tendon to supraspinatus, infraspinatus, and teres minor Increased restrictions of periscapulars on L side, cervical paraspinals especially at CT junction Anterior humeral position PT-OP-K Range of Motion Start: 06/18/24 14:31 Freq: Status: Active Protocol: Document 06/18/24 14:33 NM (Rec: 06/18/24 15:40 NM [id number]) Cervical Spine Range of Motion Cervical Spine Active Degrees Flexion 55 Extension 50 Rotation Left 75 Rotation Right 60 Lateral Flexion Left 50 Lateral Flexion Right 45 Comments mild pain at CT junction w/ ext, rot, RLF Shoulder Goniometric Range of Motion Shoulder right Flexion 160 Extension 60 Abduction 170 External Rotation at 90 degrees 90 Abduction External Rotation at 0 degrees Abduction 55 left Flexion 155 Extension 55 Abduction 165 External Rotation at 90 degrees 80 Abduction External Rotation at 0 degrees Abduction 50 Comments pain and catch feeling w/ 110 deg flex, 125 deg abd; decreased catch w/ increased elevation PROM: full passive ER at 90/90 supine; no pain PT-OP-L Special Tests Start: 06/18/24 14:31 Freq: Status: Active Protocol: Document 06/20/24 08:16 NM (Rec: 06/20/24 09:26 NM [id number]) Special Tests Cervical Spine Special Tests Vertebral artery screen Test Results intact cranial nerves, BP 115/ 71 mmHg; no symptoms w/ positional testing Comments auscultation/palpation of carotid a and heart WFL distraction Test Results + Comments reports decreased burning sensation Spurling's Test Test Results - Shoulder Special Tests Empty Can Test Results - Comments reports clicking w/ rotation but no pain with resisted testing Severianorgason's Biceps Test Results - Speed's Biceps Test Results - Grind Labrum Test Results + Biceps Load II Test Test Results - Lift-Off Rotator Cuff Test Results + Comments painful but able Belly Press Test Results - Hornblowers Sign Test Results + PT-OP-M Strength Start: 06/18/24 14:31 Freq: Status: Active Protocol: Document 06/18/24 14:33 NM (Rec: 06/18/24 15:40 NM [id number]) Shoulder Strength Shoulder Manual Muscle Testing Right Flexion 4 Good Abduction (C5) 4 Good External Rotation 4 Good Internal Rotation 4 Good Left Flexion 4 Good Extension 4- Good- External Rotation 4- Good- Internal Rotation 4 Good Comments No pain with resisted testing Elbow/Forearm Strength Elbow and Forearm Manual Muscle Testing Right Flexion (C6) 4+ Good+ Extension (C7) 4+ Good+ Left Flexion (C6) 4+ Good+ Extension (C7) 4+ Good+ PT-OP-Q Treatments Start: 06/18/24 14:31 Freq: Status: Active Protocol: Document 06/27/24 08:07 AB (Rec: 06/27/24 10:36 AB [id number]) Therapeutic Exercises Supine Exercises CS rotation Supine Exercise Name on occipital float Reps/Minutes one minute Comments Verbal cues to rotate slowly in pain free range pec stretch Supine Exercise Name hands behind head Side bilateral Reps/Minutes 60 X2 Prone Exercises prone ITWY Prone Exercise Name Y and T Side bilateral Resistance AROM Equipment Used over ball Reps/Minutes 10 ea Comments verbal cues Sidelying Exercises open book Sidelying Exercise Name HEP review - for thoracic mobility Side bilateral Reps/Minutes X5 Comments post manual Manual Therapy Treatment Consent Patient gave verbal consent for manual Yes treatment Soft Tissue Mobilization chest/trunk Body Location B pecs, lats, rhomboids, traps , thoracic paraspinals Mobilization Type Cross-Friction,Rolling, Strumming Intensity/Depth Moderate Body Position Hooklying cervical spine Body Location paraspinals, LS, UT, SCM, scalenes Mobilization Type Cross-Friction,Rolling, Sustained Pressure Intensity/Depth Superficial Body Position Sitting Comments to moderate prior to using occipital float Joint Mobilizations scapular mobilization Joint left Direction into depression and adduction Grade IV Body Position X10 each L GHJ Direction post and inf Grade III Body Position Supine Reps/Duration X10 X 4 AP, X10 inf Comments pain PT-OP-T Assessment and Plan Start: 06/18/24 14:31 Freq: Status: Active Protocol: Document 06/27/24 08:07 AB (Rec: 06/27/24 10:36 AB [id number]) Physical Therapy Assessment Goals Five Impairment B shoulder strength 4/5 R, 4-/ 5 L Lipstick Molder Goal (LTG) Pt will increase B shoulder strength globally to at least 4+/5 without increase in pain in order to demonstrate improved strength for lifting, reaching ADLs and cross fit LTG Duration 8 weeks Four Impairment pain with sleeping Short Term Goal (STG) Pt will be educated on sleeping ergonomics in order to improve pain and symptom management STG Duration 3 weeks Lipstick Molder Goal (LTG) Pt will report not waking due to pain in B shoulders at least 75% of the time LTG Duration 8 weeks Three Impairment quickdash 22.7% impairment w/ ADLs and recreation Lipstick Molder Goal (LTG) Pt will report no shoulder pain with playing violin or vacuuming in order to demonstrate improvement in ability to perform ADLs/IADLs and recreational activities without limitation LTG Duration 8 weeks Two Impairment cervical spine AROM limited R rotation 60 deg Short Term Goal (STG) Pt will improve R cervical spine rotation AROM to at least 70 deg in order to improve visual scanning for driving Residential Goal (LTG) Pt will improve B cervical spine rotation > 75 deg in order to improve ability to perform visual scanning for driving and playing violin LTG Duration 8 weeks One Impairment L shoulder ROM limited Residential Goal (LTG) Pt will improve L shoulder flexion and abduction AROM to >165 deg in order to be able to perform reaching for cross fit exercises LTG Duration 8 weeks Assessment Summary Assessment AROM left shoulder flexion 150 deg end of session reports having no pain end of session. Physical Therapy Plan Frequency and Duration Frequency of Treatment 2x/Week Duration of treatment (weeks) 8 Plan of Care Start Date 06/18/24 Plan of Care End Date 08/16/24 Next Visit Focus/Plan Next Note Type Treatment Note Next Visit Plan latex allergy Initiate serratus anterior strengthening (push up plus nest session or plank, shoulder stability w/ shoulder taps. Trial sidelying trio for RTC strength. Trial thread needle w/ foam roller. Review STM with lacrosse ball- pec, rhomboid, subscap, lat.. Trial lat stretch and lat mobilization. Initiate rotator cuff strengthening w/ bands, serratus strengthening, scapular control (prone on ball ITWY) Manual: joint mobilizations, soft tissue mobilization
--- NOTE | 2024-07-01 12:21 | PT.OTN ---
Current Diagnoses Pain in left shoulder (07/01/24) Stiffness of left shoulder, not elsewhere classified (07/01/24) Weakness (07/01/24) Physical Therapy Treatment Note PT-OP-A Visit Information Start: 06/18/24 14:31 Freq: Status: Active Protocol: Document 07/01/24 11:29 NM (Rec: 07/01/24 12:21 NM [id number]) Out-Patient Physical Therapy Visit Information Visit Information Visit Type Treatment Note Visit Start Time 11:33 Visit Stop Time 12:18 Visit Number 12/16 Evaluation Information Evaluation Date 06/18/24 PT-OP-B Current Condition Start: 06/18/24 14:31 Freq: Status: Active Protocol: Document 06/18/24 14:33 NM (Rec: 06/18/24 15:40 NM [id number]) Current Condition History of Current Condition Current Complaints pain History of Current Condition Pt presents with L shoulder pain. Has had for a year. Reports that sleeping on her shoulder is hard (side-stomach ). Unsure HARLEEN. Reports that just started to bother her one day. She did just start playing violin 1 year ago, sore after session. Pt reports crunchy shoulder B, L>R. Reports lots of popping with ER/IR osiel in adduction; no locking or catching. Pt reports no pain with lifting. Feels pain with push ups. No hx of shoulder injuries on L side. She reports that on R side she had loss of strength in R arm. She gets numb tingling. Wakes her up at night. She reports constant neck pain, states that has been ongoing for years. States locking feeling in neck. Episode occured in past month, when she saw Dr. He. She had had 3 within past 5 years. She reports neck pain worse after workouts. Massage helps, painful episodes. She reports that she gets a burning sensation into her L shoulder over RTC. L handed. She reports that the pain wakes her up at night. R shoulder stopped bothering within last 2 weeks. She reports that she painting her house for past month, no increased numbness and tingling. Has been using lacrosse ball Current Functional Impairments (Reported) Functional Limitations- ADL's washing back, vacuuming Functional Limitations- Mobility/Gait wt lifting (cross fit) 4x/wk has been doing since 2013 previous yoga 6 months Functional Limitations- Recreation/ violin Hobbies PT-OP-C Subjective Start: 06/18/24 14:31 Freq: Status: Active Protocol: Document 07/01/24 11:29 NM (Rec: 07/01/24 12:21 NM [id number]) OP-PT Subjective Patient Comments Patient Comments Pt reports neck feels looser but is popping more. Shoulders are still achy and burning. She continues to report no changes with L shoulder discomfort. PT-OP-E Functional Tests Start: 06/18/24 14:31 Freq: Status: Active Protocol: Document 06/18/24 14:33 NM (Rec: 06/18/24 15:40 NM [id number]) Functional Tests Apley's Scratch Test Action 1- Left scapular spine; no inc pain Action 1- Right infraspinatus; no inc pain Action 2- Left T2; challenging but not painful Action 2- Right T4 Action 3- Left T8; demos winging Action 3- Right T7; demos winging PT-OP-F Manual Assessment Start: 06/18/24 14:31 Freq: Status: Active Protocol: Document 06/18/24 14:33 NM (Rec: 06/18/24 15:40 NM [id number]) Manual Assessments Soft Tissue Assessment Soft Tissue Mobility Assessment Tenderness over L rotator cuff and restrictions of periscapulars Joint Mobility Assessment Joint Mobility Assessment Decreased L scapular mobility, increased winging on L side and anterior humeral position; gentle overpressure improves symptoms. No AC joint compression PT-OP-J Posture/Palpation/Skin Start: 06/18/24 14:31 Freq: Status: Active Protocol: Document 06/18/24 14:33 NM (Rec: 06/18/24 15:40 NM [id number]) Posture Evaluation Position Standing Head/C-Spine Posture Forward Head Shoulder Posture (L) Rounded,(R) Rounded Scapula Posture (L) Winged,(R) Winged Arm Posture (L) Internally Rotated,(R) Internally Rotated Pelvis Posture Anteriorly Tilted Hip Posture (L) Externally Rotated,(R) Externally Rotated Palpation Assessment Location R shoulder Palpation Details No tenderness over anterior, lateral, or posterior shoulder L shoulder Palpation Findings Tenderness Palpation Details Tenderness to palpation over biceps long head tendon, lateral shoulder over rotator cuff insertion and tender when following tendon to supraspinatus, infraspinatus, and teres minor Increased restrictions of periscapulars on L side, cervical paraspinals especially at CT junction Anterior humeral position PT-OP-K Range of Motion Start: 06/18/24 14:31 Freq: Status: Active Protocol: Document 06/18/24 14:33 NM (Rec: 06/18/24 15:40 NM [id number]) Cervical Spine Range of Motion Cervical Spine Active Degrees Flexion 55 Extension 50 Rotation Left 75 Rotation Right 60 Lateral Flexion Left 50 Lateral Flexion Right 45 Comments mild pain at CT junction w/ ext, rot, RLF Shoulder Goniometric Range of Motion Shoulder right Flexion 160 Extension 60 Abduction 170 External Rotation at 90 degrees 90 Abduction External Rotation at 0 degrees Abduction 55 left Flexion 155 Extension 55 Abduction 165 External Rotation at 90 degrees 80 Abduction External Rotation at 0 degrees Abduction 50 Comments pain and catch feeling w/ 110 deg flex, 125 deg abd; decreased catch w/ increased elevation PROM: full passive ER at 90/90 supine; no pain PT-OP-L Special Tests Start: 06/18/24 14:31 Freq: Status: Active Protocol: Document 06/20/24 08:16 NM (Rec: 06/20/24 09:26 NM [id number]) Special Tests Cervical Spine Special Tests Vertebral artery screen Test Results intact cranial nerves, BP 115/ 71 mmHg; no symptoms w/ positional testing Comments auscultation/palpation of carotid a and heart WFL distraction Test Results + Comments reports decreased burning sensation Spurling's Test Test Results - Shoulder Special Tests Empty Can Test Results - Comments reports clicking w/ rotation but no pain with resisted testing Yergason's Biceps Test Results - Speed's Biceps Test Results - Grind Labrum Test Results + Biceps Load II Test Test Results - Lift-Off Rotator Cuff Test Results + Comments painful but able Belly Press Test Results - Hornblowers Sign Test Results + PT-OP-M Strength Start: 06/18/24 14:31 Freq: Status: Active Protocol: Document 06/18/24 14:33 NM (Rec: 06/18/24 15:40 NM [id number]) Shoulder Strength Shoulder Manual Muscle Testing Right Flexion 4 Good Abduction (C5) 4 Good External Rotation 4 Good Internal Rotation 4 Good Left Flexion 4 Good Extension 4- Good- External Rotation 4- Good- Internal Rotation 4 Good Comments No pain with resisted testing Elbow/Forearm Strength Elbow and Forearm Manual Muscle Testing Right Flexion (C6) 4+ Good+ Extension (C7) 4+ Good+ Left Flexion (C6) 4+ Good+ Extension (C7) 4+ Good+ PT-OP-Q Treatments Start: 06/18/24 14:31 Freq: Status: Active Protocol: Document 07/01/24 11:29 NM (Rec: 07/01/24 12:21 NM [id number]) Therapeutic Exercises Prone Exercises scapular plank Prone Exercise Name serratus press Side bilateral Reps/Minutes 10 Comments no plank; cued for form Sidelying Exercises shoulder trio Sidelying Exercise Name HEP: 1. ER, 2. HABD, 3. flex Side bilateral Resistance AROM > 1# Reps/Minutes 10 AROM, 10 w/ 1# except flex (trialed w/ wt but has pain) Comments cued form, scap position, no ant shld translation Other Exercises self soft tissue mobilization Other Exercise Name MWM pec w/ snow caprice Side bilateral Equipment Used tennis ball in pillow case Reps/Minutes 10 Comments L side tighter quadruped Other Exercise Name child pose Y lift off Side bilateral Reps/Minutes 5 Comments no pain reproduction; cued scap position Manual Therapy Treatment Consent Patient gave verbal consent for manual Yes treatment Soft Tissue Mobilization chest/trunk Body Location B pecs, lats, rhomboids, traps , thoracic paraspinals Mobilization Type Cross-Friction,Rolling, Strumming Intensity/Depth Moderate Body Position Hooklying L shoulder Body Location pec, supr, infra, rhomb post cuff, biceps Mobilization Type Cross-Friction,Rolling, Sustained Pressure Comments Tenderness at subscap/lat, post cuff. Reduced with tenderness cervical spine Body Location paraspinals, LS, UT, SCM, scalenes Mobilization Type Cross-Friction,Rolling, Sustained Pressure Intensity/Depth Superficial Body Position Sitting Comments to moderate Monitored forp ain Joint Mobilizations L GHJ Direction post Grade III Body Position Supine Reps/Duration 2x30 Comments Monitored for pain, reports mild ant shoulder discomfort w / post glide, reduced with change in hand position PT-OP-T Assessment and Plan Start: 06/18/24 14:31 Freq: Status: Active Protocol: Document 07/01/24 11:29 NM (Rec: 07/01/24 12:21 NM [id number]) Physical Therapy Assessment Goals Five Impairment B shoulder strength 4/5 R, 4-/ 5 L Longterm Goal (LTG) Pt will increase B shoulder strength globally to at least 4+/5 without increase in pain in order to demonstrate improved strength for lifting, reaching ADLs and cross fit LTG Duration 8 weeks Four Impairment pain with sleeping Short Term Goal (STG) Pt will be educated on sleeping ergonomics in order to improve pain and symptom management STG Duration 3 weeks Longterm Goal (LTG) Pt will report not waking due to pain in B shoulders at least 75% of the time LTG Duration 8 weeks Three Impairment quickdash 22.7% impairment w/ ADLs and recreation Lube Attendant Goal (LTG) Pt will report no shoulder pain with playing violin or vacuuming in order to demonstrate improvement in ability to perform ADLs/IADLs and recreational activities without limitation LTG Duration 8 weeks Two Impairment cervical spine AROM limited R rotation 60 deg Short Term Goal (STG) Pt will improve R cervical spine rotation AROM to at least 70 deg in order to improve visual scanning for driving Lube Attendant Goal (LTG) Pt will improve B cervical spine rotation > 75 deg in order to improve ability to perform visual scanning for driving and playing violin LTG Duration 8 weeks One Impairment L shoulder ROM limited Lube Attendant Goal (LTG) Pt will improve L shoulder flexion and abduction AROM to >165 deg in order to be able to perform reaching for cross fit exercises LTG Duration 8 weeks Assessment Summary Assessment Pt tolerated session fair. Initiated sidelying shoulder trio for rotator cuff strengthening to facilitate more optimal scapular positionioning. She has L shoulder pain with resisted shoulder flexion using wt, but reduced without resistance. Cueing for scapular positioning and correct activation. Continued with lower trap and serratus activation. Educated on pec mobilization with movement and addition into HEP to maximize muscle length. Pt would continue to benefit from skilled PT for progressive L shoulder flexibility and strengthening in order to improve symptom management and ability to play violin with less discomfort. Physical Therapy Plan Frequency and Duration Frequency of Treatment 2x/Week Duration of treatment (weeks) 8 Plan of Care Start Date 06/18/24 Plan of Care End Date 08/16/24 Therapeutic Interventions Therapeutic Interventions Gait Training,Home Exercise Program,Joint Mobilizations, Manual Therapy,Neuromuscular Re-education,Orthotic/ Prosthetic Management,Patient/ Caregiver Education,Self-Care/ Home Management,Soft Tissue Mobilization,Therapeutic Activities Modalities Cold Pack/Ice Massage,Electric Stimulation,Hot Packs, Traction- Mechanical, Ultrasound Next Visit Focus/Plan Next Note Type Treatment Note Next Visit Plan latex allergy review aly to s/l trio. trial planks and Y lift off. shoulder stab w/ clock. (push up plus nest session or plank, shoulder stability w/ shoulder taps. Trial sidelying trio for RTC strength. Trial thread needle w/ foam roller. Review STM with lacrosse ball- pec, rhomboid, subscap, lat.. Trial lat stretch and lat mobilization. Initiate rotator cuff strengthening w/ bands, serratus strengthening, scapular control (prone on ball ITWY) Manual: joint mobilizations, soft tissue mobilization
--- NOTE | 2024-07-03 11:32 | PT.OTN ---
Current Diagnoses Pain in left shoulder (07/03/24) Stiffness of left shoulder, not elsewhere classified (07/03/24) Weakness (07/03/24) Physical Therapy Treatment Note PT-OP-A Visit Information Start: 06/18/24 14:31 Freq: Status: Active Protocol: Document 07/03/24 10:40 NM (Rec: 07/03/24 11:32 NM [id number]) Out-Patient Physical Therapy Visit Information Visit Information Visit Type Treatment Note Visit Note latex allergy Visit Start Time 10:45 Visit Stop Time 11:30 Visit Number 01/16 Evaluation Information Evaluation Date 06/18/24 Precautions Precautions Latex allergy PT-OP-B Current Condition Start: 06/18/24 14:31 Freq: Status: Active Protocol: Document 06/18/24 14:33 NM (Rec: 06/18/24 15:40 NM [id number]) Current Condition History of Current Condition Current Complaints pain History of Current Condition Pt presents with L shoulder pain. Has had for a year. Reports that sleeping on her shoulder is hard (side-stomach ). Unsure HARLEEN. Reports that just started to bother her one day. She did just start playing violin 1 year ago, sore after session. Pt reports crunchy shoulder B, L>R. Reports lots of popping with ER/IR osiel in adduction; no locking or catching. Pt reports no pain with lifting. Feels pain with push ups. No hx of shoulder injuries on L side. She reports that on R side she had loss of strength in R arm. She gets numb tingling. Wakes her up at night. She reports constant neck pain, states that has been ongoing for years. States locking feeling in neck. Episode occured in past month, when she saw Dr. He. She had had 3 within past 5 years. She reports neck pain worse after workouts. Massage helps, painful episodes. She reports that she gets a burning sensation into her L shoulder over RTC. L handed. She reports that the pain wakes her up at night. R shoulder stopped bothering within last 2 weeks. She reports that she painting her house for past month, no increased numbness and tingling. Has been using lacrosse ball Current Functional Impairments (Reported) Functional Limitations- ADL's washing back, vacuuming Functional Limitations- Mobility/Gait wt lifting (cross fit) 4x/wk has been doing since 2012 previous yoga 6 months Functional Limitations- Recreation/ violin Hobbies PT-OP-C Subjective Start: 06/18/24 14:31 Freq: Status: Active Protocol: Document 07/03/24 10:40 NM (Rec: 07/03/24 11:32 NM [id number]) OP-PT Subjective Patient Comments Patient Comments Pt reports that felt like her shoulder got a workout, reports burning but not increased pain. Has violin tonight. Continues to report popping in neck and shoulder PT-OP-E Functional Tests Start: 06/18/24 14:31 Freq: Status: Active Protocol: Document 06/18/24 14:33 NM (Rec: 06/18/24 15:40 NM [id number]) Functional Tests Apley's Scratch Test Action 1- Left scapular spine; no inc pain Action 1- Right infraspinatus; no inc pain Action 2- Left T2; challenging but not painful Action 2- Right T4 Action 3- Left T8; demos winging Action 3- Right T7; demos winging PT-OP-F Manual Assessment Start: 06/18/24 14:31 Freq: Status: Active Protocol: Document 06/18/24 14:33 NM (Rec: 06/18/24 15:40 NM [id number]) Manual Assessments Soft Tissue Assessment Soft Tissue Mobility Assessment Tenderness over L rotator cuff and restrictions of periscapulars Joint Mobility Assessment Joint Mobility Assessment Decreased L scapular mobility, increased winging on L side and anterior humeral position; gentle overpressure improves symptoms. No AC joint compression PT-OP-J Posture/Palpation/Skin Start: 06/18/24 14:31 Freq: Status: Active Protocol: Document 06/18/24 14:33 NM (Rec: 06/18/24 15:40 NM [id number]) Posture Evaluation Position Standing Head/C-Spine Posture Forward Head Shoulder Posture (L) Rounded,(R) Rounded Scapula Posture (L) Winged,(R) Winged Arm Posture (L) Internally Rotated,(R) Internally Rotated Pelvis Posture Anteriorly Tilted Hip Posture (L) Externally Rotated,(R) Externally Rotated Palpation Assessment Location R shoulder Palpation Details No tenderness over anterior, lateral, or posterior shoulder L shoulder Palpation Findings Tenderness Palpation Details Tenderness to palpation over biceps long head tendon, lateral shoulder over rotator cuff insertion and tender when following tendon to supraspinatus, infraspinatus, and teres minor Increased restrictions of periscapulars on L side, cervical paraspinals especially at CT junction Anterior humeral position PT-OP-K Range of Motion Start: 06/18/24 14:31 Freq: Status: Active Protocol: Document 06/18/24 14:33 NM (Rec: 06/18/24 15:40 NM [id number]) Cervical Spine Range of Motion Cervical Spine Active Degrees Flexion 55 Extension 50 Rotation Left 75 Rotation Right 60 Lateral Flexion Left 50 Lateral Flexion Right 45 Comments mild pain at CT junction w/ ext, rot, RLF Shoulder Goniometric Range of Motion Shoulder right Flexion 160 Extension 60 Abduction 170 External Rotation at 90 degrees 90 Abduction External Rotation at 0 degrees Abduction 55 left Flexion 155 Extension 55 Abduction 165 External Rotation at 90 degrees 80 Abduction External Rotation at 0 degrees Abduction 50 Comments pain and catch feeling w/ 110 deg flex, 125 deg abd; decreased catch w/ increased elevation PROM: full passive ER at 90/90 supine; no pain PT-OP-L Special Tests Start: 06/18/24 14:31 Freq: Status: Active Protocol: Document 06/20/24 08:16 NM (Rec: 06/20/24 09:26 NM [id number]) Special Tests Cervical Spine Special Tests Vertebral artery screen Test Results intact cranial nerves, BP 115/ 71 mmHg; no symptoms w/ positional testing Comments auscultation/palpation of carotid a and heart WFL distraction Test Results + Comments reports decreased burning sensation Spurling's Test Test Results - Shoulder Special Tests Empty Can Test Results - Comments reports clicking w/ rotation but no pain with resisted testing Yergason's Biceps Test Results - Speed's Biceps Test Results - Grind Labrum Test Results + Biceps Load II Test Test Results - Lift-Off Rotator Cuff Test Results + Comments painful but able Belly Press Test Results - Hornblowers Sign Test Results + PT-OP-M Strength Start: 06/18/24 14:31 Freq: Status: Active Protocol: Document 06/18/24 14:33 NM (Rec: 06/18/24 15:40 NM [id number]) Shoulder Strength Shoulder Manual Muscle Testing Right Flexion 4 Good Abduction (C5) 4 Good External Rotation 4 Good Internal Rotation 4 Good Left Flexion 4 Good Extension 4- Good- External Rotation 4- Good- Internal Rotation 4 Good Comments No pain with resisted testing Elbow/Forearm Strength Elbow and Forearm Manual Muscle Testing Right Flexion (C6) 4+ Good+ Extension (C7) 4+ Good+ Left Flexion (C6) 4+ Good+ Extension (C7) 4+ Good+ PT-OP-Q Treatments Start: 06/18/24 14:31 Freq: Status: Active Protocol: Document 07/03/24 10:40 NM (Rec: 07/03/24 11:32 NM [id number]) Therapeutic Exercises Standing Exercises Y<>W lift offs Standing Exercise Name for scap depression Side bilateral Equipment Used at wall Reps/Minutes 10 ea Comments pain free serratus activation Standing Exercise Name 1. roll ups on ball, 2. activation w/ rotation Side bilateral Equipment Used blue canadian ball 45 cm Reps/Minutes 1. 8 slides ea, 2. 5 turns ea direction Comments cueing at scap; pain free but challenging scapular depression Standing Exercise Name w/ UT lateral flexion and tension Side bilateral Equipment Used 7# db, at wall for posture Reps/Minutes 10 ea side Comments feels really good, post manual Manual Therapy Treatment Consent Patient gave verbal consent for manual Yes treatment Soft Tissue Mobilization chest/trunk Body Location B pecs, lats, rhomboids, traps , thoracic paraspinals Mobilization Type Cross-Friction,Rolling, Strumming Intensity/Depth Moderate Body Position Hooklying L shoulder Body Location pec, supr, infra, rhomb post cuff, biceps Mobilization Type Cross-Friction,Rolling, Sustained Pressure,Trigger Point Release Comments Reduced tenderness, several trigger points present cervical spine Body Location paraspinals, LS, UT, SCM, scalenes, SOR Mobilization Type Cross-Friction,Rolling, Sustained Pressure,Trigger Point Release Intensity/Depth Superficial Body Position Sitting Comments to moderate Increased restrictions on R side > L side. Several trigger points and spasms. Performed with gentle traction at shoulder and with slight cervical traction PT-OP-T Assessment and Plan Start: 06/18/24 14:31 Freq: Status: Active Protocol: Document 07/03/24 10:40 NM (Rec: 07/03/24 11:32 NM [id number]) Physical Therapy Assessment Goals Five Impairment B shoulder strength 4/5 R, 4-/ 5 L [facility] Goal (LTG) Pt will increase B shoulder strength globally to at least 4+/5 without increase in pain in order to demonstrate improved strength for lifting, reaching ADLs and cross fit LTG Duration 8 weeks Four Impairment pain with sleeping Short Term Goal (STG) Pt will be educated on sleeping ergonomics in order to improve pain and symptom management 07/03/24: pt has been educated on sleeping position and modifications to reduce shoulder pain and neural symptoms into hands STG Duration 3 weeks [facility] Goal (LTG) Pt will report not waking due to pain in B shoulders at least 75% of the time LTG Duration 8 weeks Three Impairment quickdash 22.7% impairment w/ ADLs and recreation 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) Pt will report no shoulder pain with playing violin or vacuuming in order to demonstrate improvement in ability to perform ADLs/IADLs and recreational activities without limitation LTG Duration 8 weeks Two Impairment cervical spine AROM limited R rotation 60 deg Short Term Goal (STG) Pt will improve R cervical spine rotation AROM to at least 70 deg in order to improve visual scanning for driving 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) Pt will improve B cervical spine rotation > 75 deg in order to improve ability to perform visual scanning for driving and playing violin LTG Duration 8 weeks One Impairment L shoulder ROM limited [facility] Goal (LTG) Pt will improve L shoulder flexion and abduction AROM to >165 deg in order to be able to perform reaching for cross fit exercises LTG Duration 8 weeks Assessment Summary Assessment Pt tolerated session well. Has several trigger points present at cervical spine and shoulders, reduced but not eliminated with manual treatment. Increased time spent on manual therapy to facilitate better scapular position throughout management of the soft tissue. Followed with serratus retraining and scapular depression to promote periscapular strength. Pt has less clicking in shoulder and neck with serratus activation in addition to stabilization training closed chain. Pt would continue to benefit from skilled PT for progressive strengthening in order to improve symptom management and joint stability in shoulder. Physical Therapy Plan Frequency and Duration Frequency of Treatment 2x/Week Duration of treatment (weeks) 8 Plan of Care Start Date 06/18/24 Plan of Care End Date 08/16/24 Therapeutic Interventions Therapeutic Interventions Gait Training,Home Exercise Program,Joint Mobilizations, Manual Therapy,Neuromuscular Re-education,Orthotic/ Prosthetic Management,Patient/ Caregiver Education,Self-Care/ Home Management,Soft Tissue Mobilization,Therapeutic Activities Modalities Cold Pack/Ice Massage,Electric Stimulation,Hot Packs, Traction- Mechanical, Ultrasound Next Visit Focus/Plan Next Note Type Treatment Note Next Visit Plan latex allergy review aly to s/l trio after HEP. Cont with serratus strength. trial planks and Y lift off. shoulder stab w/ clock. (push up plus nest session or plank, shoulder stability w/ shoulder taps. Trial sidelying trio for RTC strength. Trial thread needle w/ foam roller. Review STM with lacrosse ball- pec, rhomboid, subscap, lat.. Trial lat stretch and lat mobilization. Initiate rotator cuff strengthening w/ bands, serratus strengthening, scapular control (prone on ball ITWY) Manual: joint mobilizations, soft tissue mobilization
--- NOTE | 2024-07-10 09:01 | PT.OTN ---
Current Diagnoses Pain in left shoulder (07/10/24) Stiffness of left shoulder, not elsewhere classified (07/10/24) Weakness (07/10/24) Physical Therapy Treatment Note PT-OP-A Visit Information Start: 06/18/24 14:31 Freq: Status: Active Protocol: Document 07/10/24 08:15 NM (Rec: 07/10/24 09:00 NM [id number]) Out-Patient Physical Therapy Visit Information Visit Information Visit Type Treatment Note Visit Note latex allergy Visit Start Time 08:18 Visit Stop Time 08:59 Visit Number 02/15 Evaluation Information Evaluation Date 06/18/24 Precautions Precautions Latex allergy PT-OP-B Current Condition Start: 06/18/24 14:31 Freq: Status: Active Protocol: Document 06/18/24 14:33 NM (Rec: 06/18/24 15:40 NM [id number]) Current Condition History of Current Condition Current Complaints pain History of Current Condition Pt presents with L shoulder pain. Has had for a year. Reports that sleeping on her shoulder is hard (side-stomach ). Unsure HARLEEN. Reports that just started to bother her one day. She did just start playing violin 1 year ago, sore after session. Pt reports crunchy shoulder B, L>R. Reports lots of popping with ER/IR osiel in adduction; no locking or catching. Pt reports no pain with lifting. Feels pain with push ups. No hx of shoulder injuries on L side. She reports that on R side she had loss of strength in R arm. She gets numb tingling. Wakes her up at night. She reports constant neck pain, states that has been ongoing for years. States locking feeling in neck. Episode occured in past month, when she saw Dr. He. She had had 3 within past 5 years. She reports neck pain worse after workouts. Massage helps, painful episodes. She reports that she gets a burning sensation into her L shoulder over RTC. L handed. She reports that the pain wakes her up at night. R shoulder stopped bothering within last 2 weeks. She reports that she painting her house for past month, no increased numbness and tingling. Has been using lacrosse ball Current Functional Impairments (Reported) Functional Limitations- ADL's washing back, vacuuming Functional Limitations- Mobility/Gait wt lifting (cross fit) 4x/wk has been doing since 2012 previous yoga 6 months Functional Limitations- Recreation/ violin Hobbies PT-OP-C Subjective Start: 06/18/24 14:31 Freq: Status: Active Protocol: Document 07/10/24 08:15 NM (Rec: 07/10/24 09:00 NM [id number]) OP-PT Subjective Patient Comments Patient Comments Pt no increased pain following last session. She reports that her neck at CT junction is more upset today than shoulders. Pt reports that her violin session went well, no increased burning or pain PT-OP-E Functional Tests Start: 06/18/24 14:31 Freq: Status: Active Protocol: Document 06/18/24 14:33 NM (Rec: 06/18/24 15:40 NM [id number]) Functional Tests Apley's Scratch Test Action 1- Left scapular spine; no inc pain Action 1- Right infraspinatus; no inc pain Action 2- Left T2; challenging but not painful Action 2- Right T4 Action 3- Left T8; demos winging Action 3- Right T7; demos winging PT-OP-F Manual Assessment Start: 06/18/24 14:31 Freq: Status: Active Protocol: Document 06/18/24 14:33 NM (Rec: 06/18/24 15:40 NM [id number]) Manual Assessments Soft Tissue Assessment Soft Tissue Mobility Assessment Tenderness over L rotator cuff and restrictions of periscapulars Joint Mobility Assessment Joint Mobility Assessment Decreased L scapular mobility, increased winging on L side and anterior humeral position; gentle overpressure improves symptoms. No AC joint compression PT-OP-J Posture/Palpation/Skin Start: 06/18/24 14:31 Freq: Status: Active Protocol: Document 06/18/24 14:33 NM (Rec: 06/18/24 15:40 NM [id number]) Posture Evaluation Position Standing Head/C-Spine Posture Forward Head Shoulder Posture (L) Rounded,(R) Rounded Scapula Posture (L) Winged,(R) Winged Arm Posture (L) Internally Rotated,(R) Internally Rotated Pelvis Posture Anteriorly Tilted Hip Posture (L) Externally Rotated,(R) Externally Rotated Palpation Assessment Location R shoulder Palpation Details No tenderness over anterior, lateral, or posterior shoulder L shoulder Palpation Findings Tenderness Palpation Details Tenderness to palpation over biceps long head tendon, lateral shoulder over rotator cuff insertion and tender when following tendon to supraspinatus, infraspinatus, and teres minor Increased restrictions of periscapulars on L side, cervical paraspinals especially at CT junction Anterior humeral position PT-OP-K Range of Motion Start: 06/18/24 14:31 Freq: Status: Active Protocol: Document 06/18/24 14:33 NM (Rec: 06/18/24 15:40 NM [id number]) Cervical Spine Range of Motion Cervical Spine Active Degrees Flexion 55 Extension 50 Rotation Left 75 Rotation Right 60 Lateral Flexion Left 50 Lateral Flexion Right 45 Comments mild pain at CT junction w/ ext, rot, RLF Shoulder Goniometric Range of Motion Shoulder right Flexion 160 Extension 60 Abduction 170 External Rotation at 90 degrees 90 Abduction External Rotation at 0 degrees Abduction 55 left Flexion 155 Extension 55 Abduction 165 External Rotation at 90 degrees 80 Abduction External Rotation at 0 degrees Abduction 50 Comments pain and catch feeling w/ 110 deg flex, 125 deg abd; decreased catch w/ increased elevation PROM: full passive ER at 90/90 supine; no pain PT-OP-L Special Tests Start: 06/18/24 14:31 Freq: Status: Active Protocol: Document 06/20/24 08:16 NM (Rec: 06/20/24 09:26 NM [id number]) Special Tests Cervical Spine Special Tests Vertebral artery screen Test Results intact cranial nerves, BP 115/ 71 mmHg; no symptoms w/ positional testing Comments auscultation/palpation of carotid a and heart WFL distraction Test Results + Comments reports decreased burning sensation Spurling's Test Test Results - Shoulder Special Tests Empty Can Test Results - Comments reports clicking w/ rotation but no pain with resisted testing Yergason's Biceps Test Results - Speed's Biceps Test Results - Grind Labrum Test Results + Biceps Load II Test Test Results - Lift-Off Rotator Cuff Test Results + Comments painful but able Belly Press Test Results - Hornblowers Sign Test Results + PT-OP-M Strength Start: 06/18/24 14:31 Freq: Status: Active Protocol: Document 06/18/24 14:33 NM (Rec: 06/18/24 15:40 NM [id number]) Shoulder Strength Shoulder Manual Muscle Testing Right Flexion 4 Good Abduction (C5) 4 Good External Rotation 4 Good Internal Rotation 4 Good Left Flexion 4 Good Extension 4- Good- External Rotation 4- Good- Internal Rotation 4 Good Comments No pain with resisted testing Elbow/Forearm Strength Elbow and Forearm Manual Muscle Testing Right Flexion (C6) 4+ Good+ Extension (C7) 4+ Good+ Left Flexion (C6) 4+ Good+ Extension (C7) 4+ Good+ PT-OP-Q Treatments Start: 06/18/24 14:31 Freq: Status: Active Protocol: Document 07/10/24 08:15 NM (Rec: 07/10/24 09:00 NM [id number]) Therapeutic Exercises Prone Exercises scapular clock Side bilateral Resistance level 2 latex free band Reps/Minutes 5 ea side scapular plank Prone Exercise Name full plank- 1. serratus press, 2. shoulder taps Side bilateral Reps/Minutes 1. 2x10, 2. 2x10 Comments cued scap protraction entire time Standing Exercises wall posture Standing Exercise Name cervical retraction Side bilateral Reps/Minutes 10 Other Exercises quadruped Other Exercise Name child pose Y lift off Side bilateral Reps/Minutes 10 Comments challenging; cued shoulder blade to feet Manual Therapy Treatment Consent Patient gave verbal consent for manual Yes treatment Soft Tissue Mobilization chest/trunk Body Location B pecs, lats, rhomboids, traps , thoracic paraspinals Mobilization Type Cross-Friction,Rolling, Strumming Intensity/Depth Moderate Body Position Hooklying L shoulder Body Location pec, supr, infra, rhomb post cuff, biceps Mobilization Type Cross-Friction,Rolling, Sustained Pressure,Trigger Point Release Comments Reduced tenderness, several trigger points present, reduced with manual treatment cervical spine Body Location paraspinals, LS, UT, SCM, scalenes, SOR Mobilization Type Cross-Friction,Rolling, Sustained Pressure,Trigger Point Release Intensity/Depth Superficial Body Position Sitting Comments to moderate Increased restrictions on R side > L side. Several trigger points and spasms on L side. Performed with gentle traction at shoulder and with slight cervical traction PT-OP-T Assessment and Plan Start: 06/18/24 14:31 Freq: Status: Active Protocol: Document 07/10/24 08:15 NM (Rec: 07/10/24 09:00 NM [id number]) Physical Therapy Assessment Goals Five Impairment B shoulder strength 4/5 R, 4-/ 5 L [facility] Goal (LTG) Pt will increase B shoulder strength globally to at least 4+/5 without increase in pain in order to demonstrate improved strength for lifting, reaching ADLs and cross fit LTG Duration 8 weeks Four Impairment pain with sleeping Short Term Goal (STG) Pt will be educated on sleeping ergonomics in order to improve pain and symptom management 07/03/24: pt has been educated on sleeping position and modifications to reduce shoulder pain and neural symptoms into hands STG Duration 3 weeks [facility] 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) Pt will report not waking due to pain in B shoulders at least 75% of the time LTG Duration 8 weeks Three Impairment quickdash 22.7% impairment w/ ADLs and recreation 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) Pt will report no shoulder pain with playing violin or vacuuming in order to demonstrate improvement in ability to perform ADLs/IADLs and recreational activities without limitation LTG Duration 8 weeks Two Impairment cervical spine AROM limited R rotation 60 deg Short Term Goal (STG) Pt will improve R cervical spine rotation AROM to at least 70 deg in order to improve visual scanning for driving [facility] Goal (LTG) Pt will improve B cervical spine rotation > 75 deg in order to improve ability to perform visual scanning for driving and playing violin LTG Duration 8 weeks One Impairment L shoulder ROM limited [facility] Goal (LTG) Pt will improve L shoulder flexion and abduction AROM to >165 deg in order to be able to perform reaching for cross fit exercises LTG Duration 8 weeks Assessment Summary Assessment Good feedback for closed chain exercises, emphasizing scapular position and serratus activation. Pt continues to have restrictions of cervical spine paraspinals, periscapulars, SCM/scalenes, and posterior cuff/lat that restrict scapular length and efficiency with elevation. Good response to manual treatment. Initiated cervical retraction at wall to promote posterior chain lengthening and anterior chain activation for better head position. PT and pt discussed having pt reach out to PCP for new insurance auth for more visits ; pt has busy August schedule , does not think she could attend appt so not planning to renew past the 12 approved visits. PT and pt in agreement . Physical Therapy Plan Frequency and Duration Frequency of Treatment 2x/Week Duration of treatment (weeks) 8 Plan of Care Start Date 06/18/24 Plan of Care End Date 08/16/24 Therapeutic Interventions Therapeutic Interventions Gait Training,Home Exercise Program,Joint Mobilizations, Manual Therapy,Neuromuscular Re-education,Orthotic/ Prosthetic Management,Patient/ Caregiver Education,Self-Care/ Home Management,Soft Tissue Mobilization,Therapeutic Activities Modalities Cold Pack/Ice Massage,Electric Stimulation,Hot Packs, Traction- Mechanical, Ultrasound Next Visit Focus/Plan Next Note Type Treatment Note Next Visit Plan latex allergy Serratus at wall w/ ball, closed chain- trail bosu. review aly to s/l trio after HEP. Cont with serratus strength. trial planks and Y lift off. shoulder stab w/ clock. (push up plus nest session or plank, shoulder stability w/ shoulder taps. Trial sidelying trio for RTC strength. Trial thread needle w/ foam roller. Review STM with lacrosse ball- pec, rhomboid, subscap, lat.. Trial lat stretch and lat mobilization. Initiate rotator cuff strengthening w/ bands, serratus strengthening, scapular control (prone on ball ITWY) Manual: joint mobilizations, soft tissue mobilization
--- NOTE | 2024-07-12 10:41 | PT.OTN ---
Current Diagnoses Pain in left shoulder (07/12/24) Stiffness of left shoulder, not elsewhere classified (07/12/24) Weakness (07/12/24) Physical Therapy Treatment Note PT-OP-A Visit Information Start: 06/18/24 14:31 Freq: Status: Active Protocol: Document 07/12/24 09:01 NM (Rec: 07/12/24 09:47 NM [id number]) Out-Patient Physical Therapy Visit Information Visit Information Visit Type Treatment Note Visit Note latex allergy Visit Start Time 09:03 Visit Stop Time 09:45 Visit Number 03/18 Evaluation Information Evaluation Date 06/18/24 Precautions Precautions Latex allergy PT-OP-B Current Condition Start: 06/18/24 14:31 Freq: Status: Active Protocol: Document 06/18/24 14:33 NM (Rec: 06/18/24 15:40 NM [id number]) Current Condition History of Current Condition Current Complaints pain History of Current Condition Pt presents with L shoulder pain. Has had for a year. Reports that sleeping on her shoulder is hard (side-stomach ). Unsure HARLEEN. Reports that just started to bother her one day. She did just start playing violin 1 year ago, sore after session. Pt reports crunchy shoulder B, L>R. Reports lots of popping with ER/IR osiel in adduction; no locking or catching. Pt reports no pain with lifting. Feels pain with push ups. No hx of shoulder injuries on L side. She reports that on R side she had loss of strength in R arm. She gets numb tingling. Wakes her up at night. She reports constant neck pain, states that has been ongoing for years. States locking feeling in neck. Episode occured in past month, when she saw Dr. He. She had had 3 within past 5 years. She reports neck pain worse after workouts. Massage helps, painful episodes. She reports that she gets a burning sensation into her L shoulder over RTC. L handed. She reports that the pain wakes her up at night. R shoulder stopped bothering within last 2 weeks. She reports that she painting her house for past month, no increased numbness and tingling. Has been using lacrosse ball Current Functional Impairments (Reported) Functional Limitations- ADL's washing back, vacuuming Functional Limitations- Mobility/Gait wt lifting (cross fit) 4x/wk has been doing since 2012 previous yoga 6 months Functional Limitations- Recreation/ violin Hobbies PT-OP-C Subjective Start: 06/18/24 14:31 Freq: Status: Active Protocol: Document 07/12/24 09:01 NM (Rec: 07/12/24 09:47 NM [id number]) OP-PT Subjective Patient Comments Patient Comments Pt reports continuing to improve. Has less discomfort in neck/shoulder, still gets burning sensation go. She had no pain or discomfort in shoulder during or following session PT-OP-E Functional Tests Start: 06/18/24 14:31 Freq: Status: Active Protocol: Document 06/18/24 14:33 NM (Rec: 06/18/24 15:40 NM [id number]) Functional Tests Apley's Scratch Test Action 1- Left scapular spine; no inc pain Action 1- Right infraspinatus; no inc pain Action 2- Left T2; challenging but not painful Action 2- Right T4 Action 3- Left T8; demos winging Action 3- Right T7; demos winging PT-OP-F Manual Assessment Start: 06/18/24 14:31 Freq: Status: Active Protocol: Document 06/18/24 14:33 NM (Rec: 06/18/24 15:40 NM [id number]) Manual Assessments Soft Tissue Assessment Soft Tissue Mobility Assessment Tenderness over L rotator cuff and restrictions of periscapulars Joint Mobility Assessment Joint Mobility Assessment Decreased L scapular mobility, increased winging on L side and anterior humeral position; gentle overpressure improves symptoms. No AC joint compression PT-OP-J Posture/Palpation/Skin Start: 06/18/24 14:31 Freq: Status: Active Protocol: Document 06/18/24 14:33 NM (Rec: 06/18/24 15:40 NM [id number]) Posture Evaluation Position Standing Head/C-Spine Posture Forward Head Shoulder Posture (L) Rounded,(R) Rounded Scapula Posture (L) Winged,(R) Winged Arm Posture (L) Internally Rotated,(R) Internally Rotated Pelvis Posture Anteriorly Tilted Hip Posture (L) Externally Rotated,(R) Externally Rotated Palpation Assessment Location R shoulder Palpation Details No tenderness over anterior, lateral, or posterior shoulder L shoulder Palpation Findings Tenderness Palpation Details Tenderness to palpation over biceps long head tendon, lateral shoulder over rotator cuff insertion and tender when following tendon to supraspinatus, infraspinatus, and teres minor Increased restrictions of periscapulars on L side, cervical paraspinals especially at CT junction Anterior humeral position PT-OP-K Range of Motion Start: 06/18/24 14:31 Freq: Status: Active Protocol: Document 06/18/24 14:33 NM (Rec: 06/18/24 15:40 NM [id number]) Cervical Spine Range of Motion Cervical Spine Active Degrees Flexion 55 Extension 50 Rotation Left 75 Rotation Right 60 Lateral Flexion Left 50 Lateral Flexion Right 45 Comments mild pain at CT junction w/ ext, rot, RLF Shoulder Goniometric Range of Motion Shoulder right Flexion 160 Extension 60 Abduction 170 External Rotation at 90 degrees 90 Abduction External Rotation at 0 degrees Abduction 55 left Flexion 155 Extension 55 Abduction 165 External Rotation at 90 degrees 80 Abduction External Rotation at 0 degrees Abduction 50 Comments pain and catch feeling w/ 110 deg flex, 125 deg abd; decreased catch w/ increased elevation PROM: full passive ER at 90/90 supine; no pain PT-OP-L Special Tests Start: 06/18/24 14:31 Freq: Status: Active Protocol: Document 06/20/24 08:16 NM (Rec: 06/20/24 09:26 NM [id number]) Special Tests Cervical Spine Special Tests Vertebral artery screen Test Results intact cranial nerves, BP 115/ 71 mmHg; no symptoms w/ positional testing Comments auscultation/palpation of carotid a and heart WFL distraction Test Results + Comments reports decreased burning sensation Spurling's Test Test Results - Shoulder Special Tests Empty Can Test Results - Comments reports clicking w/ rotation but no pain with resisted testing Yergason's Biceps Test Results - Speed's Biceps Test Results - Grind Labrum Test Results + Biceps Load II Test Test Results - Lift-Off Rotator Cuff Test Results + Comments painful but able Belly Press Test Results - Hornblowers Sign Test Results + PT-OP-M Strength Start: 06/18/24 14:31 Freq: Status: Active Protocol: Document 06/18/24 14:33 NM (Rec: 06/18/24 15:40 NM [id number]) Shoulder Strength Shoulder Manual Muscle Testing Right Flexion 4 Good Abduction (C5) 4 Good External Rotation 4 Good Internal Rotation 4 Good Left Flexion 4 Good Extension 4- Good- External Rotation 4- Good- Internal Rotation 4 Good Comments No pain with resisted testing Elbow/Forearm Strength Elbow and Forearm Manual Muscle Testing Right Flexion (C6) 4+ Good+ Extension (C7) 4+ Good+ Left Flexion (C6) 4+ Good+ Extension (C7) 4+ Good+ PT-OP-Q Treatments Start: 06/18/24 14:31 Freq: Status: Active Protocol: Document 07/12/24 09:01 NM (Rec: 07/12/24 09:47 NM [id number]) Therapeutic Exercises Standing Exercises Y<>W lift offs Standing Exercise Name for scap depression Side bilateral Equipment Used at wall Reps/Minutes 15 ea Comments post manual Other Exercises 1/2 kneel Other Exercise Name 1. TS rot, 2. rainbows, 3. serratus slide w/ flex Side bilateral Reps/Minutes 10 ea Comments pain free; Less range L side on L for comfort Manual Therapy Treatment Consent Patient gave verbal consent for manual Yes treatment Soft Tissue Mobilization chest/trunk Body Location B pecs, lats, rhomboids, traps , thoracic paraspinals Mobilization Type Cross-Friction,Instrument Assisted,Rolling,Strumming Intensity/Depth Moderate Comments Performed with cupping in sitting and sidelying. Sustained cupping and MWM 5 sec with medium and smallest cup at rhomboids, post cuff. Trigger points and restrictions at subscap/lat/ teres border, followed to humerus. Aly well. Mild redness at R teres L shoulder Body Location pec, supr, infra, rhomb post cuff, biceps Mobilization Type Cross-Friction,Rolling, Sustained Pressure,Trigger Point Release Comments Reduced tenderness cervical spine Body Location paraspinals, LS, UT, SCM, scalenes, SOR Mobilization Type Cross-Friction,Instrument Assisted,Rolling,Sustained Pressure,Trigger Point Release Intensity/Depth Superficial Comments to moderate Sitting and sidelying. Performed with cupping using medium and smallest cups, sustained and MWM at LS/trap. Increased restrictions on R side > L side. Reduced with cupping but still present R side. Redness and 2 circles with petechie at R UT/LS PT-OP-T Assessment and Plan Start: 06/18/24 14:31 Freq: Status: Active Protocol: Document 07/12/24 09:01 NM (Rec: 07/12/24 09:47 NM [id number]) Physical Therapy Assessment Goals Five Impairment B shoulder strength 4/5 R, 4-/ 5 L Retirement Goal (LTG) Pt will increase B shoulder strength globally to at least 4+/5 without increase in pain in order to demonstrate improved strength for lifting, reaching ADLs and cross fit LTG Duration 8 weeks Four Impairment pain with sleeping Short Term Goal (STG) Pt will be educated on sleeping ergonomics in order to improve pain and symptom management 07/03/24: pt has been educated on sleeping position and modifications to reduce shoulder pain and neural symptoms into hands STG Duration 3 weeks MET Medical Anthropologist Goal (LTG) Pt will report not waking due to pain in B shoulders at least 75% of the time LTG Duration 8 weeks Three Impairment quickdash 22.7% impairment w/ ADLs and recreation Medical Anthropologist Goal (LTG) Pt will report no shoulder pain with playing violin or vacuuming in order to demonstrate improvement in ability to perform ADLs/IADLs and recreational activities without limitation 07/12/24: pt reports no pain in shoulder after last 2 violin sessions LTG Duration 8 weeks Two Impairment cervical spine AROM limited R rotation 60 deg Short Term Goal (STG) Pt will improve R cervical spine rotation AROM to at least 70 deg in order to improve visual scanning for driving 07/12/24: 74 deg L rot, 80 deg R rot start of session Medical Anthropologist Goal (LTG) Pt will improve B cervical spine rotation > 75 deg in order to improve ability to perform visual scanning for driving and playing violin LTG Duration 8 weeks One Impairment L shoulder ROM limited Medical Anthropologist Goal (LTG) Pt will improve L shoulder flexion and abduction AROM to >165 deg in order to be able to perform reaching for cross fit exercises 07/12/24: 165 deg L shoulder flex still achy/pinch, 170 deg abd (also present but fwd still most) LTG Duration 8 weeks Assessment Summary Assessment Pt tolerated session well. Good response to cupping for manual therapy. Increased time on manual to address restrictions and trigger points, improve blood flow and to decrease soft tissue limitations to improve ROM. Continued with thoracic mobility and closed chain shoulder strengthening at wall for rotator cuff/serratus force couple. L thoracic mobility especially rotation still more limited than R and less comfortable, denies pain. Has 165 deg L shoulder flex and 170 deg L shoulder abd at start of session; still has pinchy and achy feeling especially toward midrange on L shoulder flex>abd but reduced pain at end of session following closed chain exercises and manual treatment . Demos improved cervical spine ROM with rot at start of session, tightness felt likely end range; has >70 deg rotation B at start of session . Pt no longer has pain with violin sessions. Pt would continue to benefit from skilled PT to improve muscle length and strength in order to improve symptom management during exercise and ADLs. Physical Therapy Plan Frequency and Duration Frequency of Treatment 2x/Week Duration of treatment (weeks) 8 Plan of Care Start Date 06/18/24 Plan of Care End Date 08/16/24 Therapeutic Interventions Therapeutic Interventions Gait Training,Home Exercise Program,Joint Mobilizations, Manual Therapy,Neuromuscular Re-education,Orthotic/ Prosthetic Management,Patient/ Caregiver Education,Self-Care/ Home Management,Soft Tissue Mobilization,Therapeutic Activities Modalities Cold Pack/Ice Massage,Electric Stimulation,Hot Packs, Traction- Mechanical, Ultrasound Next Visit Focus/Plan Next Note Type Progress Note Next Visit Plan latex allergy Serratus at wall w/ ball, closed chain- trail bosu. review aly to s/l trio after HEP. Cont with serratus strength. trial planks and Y lift off. shoulder stab w/ clock. (push up plus nest session or plank, shoulder stability w/ shoulder taps. Trial sidelying trio for RTC strength. Trial thread needle w/ foam roller. Review STM with lacrosse ball- pec, rhomboid, subscap, lat.. Trial lat stretch and lat mobilization. Initiate rotator cuff strengthening w/ bands, serratus strengthening, scapular control (prone on ball ITWY) Manual: joint mobilizations, soft tissue mobilization
--- NOTE | 2024-07-15 15:29 | PT.OTN ---
Current Diagnoses Pain in left shoulder (07/15/24) Stiffness of left shoulder, not elsewhere classified (07/15/24) Weakness (07/15/24) Physical Therapy Treatment Note PT-OP-A Visit Information Start: 06/18/24 14:31 Freq: Status: Active Protocol: Document 07/15/24 14:33 NM (Rec: 07/15/24 15:25 NM [id number]) Out-Patient Physical Therapy Visit Information Visit Information Visit Type Progress Note Visit Note latex allergy Visit Start Time 14:34 Visit Stop Time 15:15 Visit Number 04/18 Evaluation Information Evaluation Date 06/18/24 Precautions Precautions Latex allergy PT-OP-B Current Condition Start: 06/18/24 14:31 Freq: Status: Active Protocol: Document 06/18/24 14:33 NM (Rec: 06/18/24 15:40 NM [id number]) Current Condition History of Current Condition Current Complaints pain History of Current Condition Pt presents with L shoulder pain. Has had for a year. Reports that sleeping on her shoulder is hard (side-stomach ). Unsure HARLEEN. Reports that just started to bother her one day. She did just start playing violin 1 year ago, sore after session. Pt reports crunchy shoulder B, L>R. Reports lots of popping with ER/IR osiel in adduction; no locking or catching. Pt reports no pain with lifting. Feels pain with push ups. No hx of shoulder injuries on L side. She reports that on R side she had loss of strength in R arm. She gets numb tingling. Wakes her up at night. She reports constant neck pain, states that has been ongoing for years. States locking feeling in neck. Episode occured in past month, when she saw Dr. He. She had had 3 within past 5 years. She reports neck pain worse after workouts. Massage helps, painful episodes. She reports that she gets a burning sensation into her L shoulder over RTC. L handed. She reports that the pain wakes her up at night. R shoulder stopped bothering within last 2 weeks. She reports that she painting her house for past month, no increased numbness and tingling. Has been using lacrosse ball Current Functional Impairments (Reported) Functional Limitations- ADL's washing back, vacuuming Functional Limitations- Mobility/Gait wt lifting (cross fit) 4x/wk has been doing since 2012 previous yoga 6 months Functional Limitations- Recreation/ violin Hobbies PT-OP-C Subjective Start: 06/18/24 14:31 Freq: Status: Active Protocol: Document 07/15/24 14:33 NM (Rec: 07/15/24 15:25 NM [id number]) OP-PT Subjective Patient Comments Patient Comments Pt reports felt better after last session, very loose, feels better overall. She reports no pain during violin lesson. Pt reports workouts are going well, reports less pinching in shoulder and neck. L shoulder still clicking/ popping, non-painful. PT-OP-E Functional Tests Start: 06/18/24 14:31 Freq: Status: Active Protocol: Document 06/18/24 14:33 NM (Rec: 06/18/24 15:40 NM [id number]) Functional Tests Apley's Scratch Test Action 1- Left scapular spine; no inc pain Action 1- Right infraspinatus; no inc pain Action 2- Left T2; challenging but not painful Action 2- Right T4 Action 3- Left T8; demos winging Action 3- Right T7; demos winging PT-OP-F Manual Assessment Start: 06/18/24 14:31 Freq: Status: Active Protocol: Document 06/18/24 14:33 NM (Rec: 06/18/24 15:40 NM [id number]) Manual Assessments Soft Tissue Assessment Soft Tissue Mobility Assessment Tenderness over L rotator cuff and restrictions of periscapulars Joint Mobility Assessment Joint Mobility Assessment Decreased L scapular mobility, increased winging on L side and anterior humeral position; gentle overpressure improves symptoms. No AC joint compression PT-OP-J Posture/Palpation/Skin Start: 06/18/24 14:31 Freq: Status: Active Protocol: Document 06/18/24 14:33 NM (Rec: 06/18/24 15:40 NM [id number]) Posture Evaluation Position Standing Head/C-Spine Posture Forward Head Shoulder Posture (L) Rounded,(R) Rounded Scapula Posture (L) Winged,(R) Winged Arm Posture (L) Internally Rotated,(R) Internally Rotated Pelvis Posture Anteriorly Tilted Hip Posture (L) Externally Rotated,(R) Externally Rotated Palpation Assessment Location R shoulder Palpation Details No tenderness over anterior, lateral, or posterior shoulder L shoulder Palpation Findings Tenderness Palpation Details Tenderness to palpation over biceps long head tendon, lateral shoulder over rotator cuff insertion and tender when following tendon to supraspinatus, infraspinatus, and teres minor Increased restrictions of periscapulars on L side, cervical paraspinals especially at CT junction Anterior humeral position PT-OP-K Range of Motion Start: 06/18/24 14:31 Freq: Status: Active Protocol: Document 07/15/24 14:33 NM (Rec: 07/15/24 15:25 NM [id number]) Cervical Spine Range of Motion Cervical Spine Active Degrees Flexion 55 Extension 50 Rotation Left 75 Rotation Right 60 Lateral Flexion Left 50 Lateral Flexion Right 45 Comments mild pain at CT junction w/ ext, rot, RLF 07/15/24: 45 deg LF, 60 deg flex, 60 deg ext, 75 deg L rot , 85 deg R rot Shoulder Goniometric Range of Motion Shoulder right Flexion 160 Extension 60 Abduction 170 External Rotation at 90 degrees 90 Abduction External Rotation at 0 degrees Abduction 55 left Flexion 160 Extension 55 Abduction 165 External Rotation at 90 degrees 80 Abduction External Rotation at 0 degrees Abduction 50 Comments pain and catch feeling w/ 110 deg flex, 125 deg abd; decreased catch w/ increased elevation PROM: full passive ER at 90/90 supine; no pain 07/15/24: 160 deg flex, 165 deg abd; still has pain at 100 deg abd PT-OP-L Special Tests Start: 06/18/24 14:31 Freq: Status: Active Protocol: Document 06/20/24 08:16 NM (Rec: 06/20/24 09:26 NM [id number]) Special Tests Cervical Spine Special Tests Vertebral artery screen Test Results intact cranial nerves, BP 115/ 71 mmHg; no symptoms w/ positional testing Comments auscultation/palpation of carotid a and heart WFL distraction Test Results + Comments reports decreased burning sensation Spurling's Test Test Results - Shoulder Special Tests Empty Can Test Results - Comments reports clicking w/ rotation but no pain with resisted testing Severianordelanoson's Biceps Test Results - Speed's Biceps Test Results - Grind Labrum Test Results + Biceps Load II Test Test Results - Lift-Off Rotator Cuff Test Results + Comments painful but able Belly Press Test Results - Hornblowers Sign Test Results + PT-OP-M Strength Start: 06/18/24 14:31 Freq: Status: Active Protocol: Document 07/15/24 14:33 NM (Rec: 07/15/24 15:25 NM [id number]) Shoulder Strength Shoulder Manual Muscle Testing Right Flexion 4 Good Abduction (C5) 4 Good External Rotation 4 Good Internal Rotation 4 Good Left Flexion 4+ Good+ Extension 4- Good- External Rotation 4 Good Internal Rotation 4 Good Comments No pain with resisted testing PT-OP-Q Treatments Start: 06/18/24 14:31 Freq: Status: Active Protocol: Document 07/15/24 14:33 NM (Rec: 07/15/24 15:25 NM [id number]) Therapeutic Exercises Supine Exercises foam roller Supine Exercise Name 1. TS extension, 2. thread needle, 3. pect stretch Side bilateral Reps/Minutes 1. 10, 2. 10 ea, 3. 60 ea Comments pain free; good feedback Prone Exercises scapular plank Prone Exercise Name 1. dolphin plank, 2. serratus plank w/ slider Side bilateral Equipment Used foam pad Reps/Minutes 1. 2x10 ea, 2. 10 ea Other Exercises 1/2 kneel Other Exercise Name 1. RTC lift w. ER, 2. serratus sliders w/ ball then rot Side bilateral Resistance level 1 band Reps/Minutes 10 ea Comments challenging; demos ecc shaking ; cued form Manual Therapy Treatment Soft Tissue Mobilization chest/trunk Body Location B pecs, lats, rhomboids, traps , thoracic paraspinals Mobilization Type Cross-Friction,Instrument Assisted,Rolling,Strumming Intensity/Depth Moderate Body Position Sidelying Comments Tolerated well. Monitored for pain, palpable muscle restriction at rhomboids L shoulder Body Location pec, supr, infra, rhomb post cuff, biceps, lat Mobilization Type Cross-Friction,Rolling, Sustained Pressure,Trigger Point Release Comments Reduced tenderness generally. performed w/ lat pin and stretch, continues to have tenderness at post cuff and subscapularis PT-OP-T Assessment and Plan Start: 06/18/24 14:31 Freq: Status: Active Protocol: Document 07/15/24 14:33 NM (Rec: 07/15/24 15:25 NM [id number]) Physical Therapy Assessment Goals Five Impairment B shoulder strength 4/5 R, 4-/ 5 L Alf Goal (LTG) Pt will increase B shoulder strength globally to at least 4+/5 without increase in pain in order to demonstrate improved strength for lifting, reaching ADLs and cross fit 07/15/24: 4/5 ER/IR, 4-/5 and, 4+/5 flex LTG Duration 8 weeks PROGRESSING Four Impairment pain with sleeping Short Term Goal (STG) Pt will be educated on sleeping ergonomics in order to improve pain and symptom management 07/03/24: pt has been educated on sleeping position and modifications to reduce shoulder pain and neural symptoms into hands STG Duration 3 weeks MET Alf Goal (LTG) Pt will report not waking due to pain in B shoulders at least 75% of the time 07/15/24: pt reports waking Rarely, <75% of the time d/t shoulder pain LTG Duration 8 weeks MET Three Impairment quickdash 22.7% impairment w/ ADLs and recreation Public Health Analyst Goal (LTG) Pt will report no shoulder pain with playing violin or vacuuming in order to demonstrate improvement in ability to perform ADLs/IADLs and recreational activities without limitation 07/12/24: pt reports no pain in shoulder after last 2 violin sessions 07/15/24: 13.6% impairment LTG Duration 8 weeks MET Two Impairment cervical spine AROM limited R rotation 60 deg Short Term Goal (STG) Pt will improve R cervical spine rotation AROM to at least 70 deg in order to improve visual scanning for driving 07/12/24: 74 deg L rot, 80 deg R rot start of session Alf Goal (LTG) Pt will improve B cervical spine rotation > 75 deg in order to improve ability to perform visual scanning for driving and playing violin 07/15/24: 75 deg L rot, 85 deg R rot LTG Duration 8 weeks MET One Impairment L shoulder ROM limited Public Health Analyst Goal (LTG) Pt will improve L shoulder flexion and abduction AROM to >165 deg in order to be able to perform reaching for cross fit exercises 07/12/24: 165 deg L shoulder flex still achy/pinch, 170 deg abd (also present but fwd still most) 07/15/24: 160 deg L shoulder flex, 165 deg abd; still demos catching in abd at 110 deg LTG Duration 8 weeks PROGRESSING Progress Towards Goals Progress Towards Goals Progressing Toward Goals,Goals Met Assessment Summary Assessment Pt responded well to closed chain scapular strengthening. Less ability to HABD with L shoulder; reports pinching sensation with rotation initially but reduced with reps; limited ROM. Progressed to core serratus planks and dolphin planks for further stabilization. Challenging for shoulder stability, but no increased pain. Contnues to have good feedback for thoracic mobility and scapular activation activities. Pt progressing well toward goals. Physical Therapy Plan Frequency and Duration Frequency of Treatment 2x/Week Duration of treatment (weeks) 8 Plan of Care Start Date 06/18/24 Plan of Care End Date 08/16/24 Therapeutic Interventions Therapeutic Interventions Gait Training,Home Exercise Program,Joint Mobilizations, Manual Therapy,Neuromuscular Re-education,Orthotic/ Prosthetic Management,Patient/ Caregiver Education,Self-Care/ Home Management,Soft Tissue Mobilization,Therapeutic Activities Modalities Cold Pack/Ice Massage,Electric Stimulation,Hot Packs, Traction- Mechanical, Ultrasound Next Visit Focus/Plan Next Note Type Treatment Note Next Visit Plan latex allergy Serratus/scap strength closed chain. Cont with serratus strength. cont with banded RTC w/ elevation and add IR, Trial sidelying trio again for RTC strength. Trial lat stretch and lat mobilization. Manual: joint mobilizations, soft tissue mobilization
--- NOTE | 2024-07-17 10:18 | PT.OTN ---
Current Diagnoses Pain in left shoulder (07/17/24) Stiffness of left shoulder, not elsewhere classified (07/17/24) Weakness (07/17/24) Physical Therapy Treatment Note PT-OP-A Visit Information Start: 06/18/24 14:31 Freq: Status: Active Protocol: Document 07/17/24 08:08 AB (Rec: 07/17/24 10:18 AB [id number]) Out-Patient Physical Therapy Visit Information Visit Information Visit Type Treatment Note Visit Note latex allergy Visit Start Time 08:17 Visit Stop Time 09:01 Visit Number 05/18 Number of OFFICE LEAD Visits 1 Evaluation Information Evaluation Date 06/18/24 Precautions Precautions Latex allergy PT-OP-B Current Condition Start: 06/18/24 14:31 Freq: Status: Active Protocol: Document 06/18/24 14:33 NM (Rec: 06/18/24 15:40 NM [id number]) Current Condition History of Current Condition Current Complaints pain History of Current Condition Pt presents with L shoulder pain. Has had for a year. Reports that sleeping on her shoulder is hard (side-stomach ). Unsure HARLEEN. Reports that just started to bother her one day. She did just start playing violin 1 year ago, sore after session. Pt reports crunchy shoulder B, L>R. Reports lots of popping with ER/IR osiel in adduction; no locking or catching. Pt reports no pain with lifting. Feels pain with push ups. No hx of shoulder injuries on L side. She reports that on R side she had loss of strength in R arm. She gets numb tingling. Wakes her up at night. She reports constant neck pain, states that has been ongoing for years. States locking feeling in neck. Episode occured in past month, when she saw Dr. He. She had had 3 within past 5 years. She reports neck pain worse after workouts. Massage helps, painful episodes. She reports that she gets a burning sensation into her L shoulder over RTC. L handed. She reports that the pain wakes her up at night. R shoulder stopped bothering within last 2 weeks. She reports that she painting her house for past month, no increased numbness and tingling. Has been using lacrosse ball Current Functional Impairments (Reported) Functional Limitations- ADL's washing back, vacuuming Functional Limitations- Mobility/Gait wt lifting (cross fit) 4x/wk has been doing since 2013 previous yoga 6 months Functional Limitations- Recreation/ violin Hobbies PT-OP-C Subjective Start: 06/18/24 14:31 Freq: Status: Active Protocol: Document 07/17/24 08:08 AB (Rec: 07/17/24 10:18 AB [id number]) OP-PT Subjective Patient Comments Patient Comments Patient reports a little sore post previous session, not too bad (gestures to bilateral UT ) Patient reports exercises are going ok. Reports crunchy and discomfort sensations with open chair movements ( gestures movement) PT-OP-E Functional Tests Start: 06/18/24 14:31 Freq: Status: Active Protocol: Document 06/18/24 14:33 NM (Rec: 06/18/24 15:40 NM [id number]) Functional Tests Apley's Scratch Test Action 1- Left scapular spine; no inc pain Action 1- Right infraspinatus; no inc pain Action 2- Left T2; challenging but not painful Action 2- Right T4 Action 3- Left T8; demos winging Action 3- Right T7; demos winging PT-OP-F Manual Assessment Start: 06/18/24 14:31 Freq: Status: Active Protocol: Document 06/18/24 14:33 NM (Rec: 06/18/24 15:40 NM [id number]) Manual Assessments Soft Tissue Assessment Soft Tissue Mobility Assessment Tenderness over L rotator cuff and restrictions of periscapulars Joint Mobility Assessment Joint Mobility Assessment Decreased L scapular mobility, increased winging on L side and anterior humeral position; gentle overpressure improves symptoms. No AC joint compression PT-OP-J Posture/Palpation/Skin Start: 06/18/24 14:31 Freq: Status: Active Protocol: Document 06/18/24 14:33 NM (Rec: 06/18/24 15:40 NM [id number]) Posture Evaluation Position Standing Head/C-Spine Posture Forward Head Shoulder Posture (L) Rounded,(R) Rounded Scapula Posture (L) Winged,(R) Winged Arm Posture (L) Internally Rotated,(R) Internally Rotated Pelvis Posture Anteriorly Tilted Hip Posture (L) Externally Rotated,(R) Externally Rotated Palpation Assessment Location R shoulder Palpation Details No tenderness over anterior, lateral, or posterior shoulder L shoulder Palpation Findings Tenderness Palpation Details Tenderness to palpation over biceps long head tendon, lateral shoulder over rotator cuff insertion and tender when following tendon to supraspinatus, infraspinatus, and teres minor Increased restrictions of periscapulars on L side, cervical paraspinals especially at CT junction Anterior humeral position PT-OP-K Range of Motion Start: 06/18/24 14:31 Freq: Status: Active Protocol: Document 07/15/24 14:33 NM (Rec: 07/15/24 15:25 NM [id number]) Cervical Spine Range of Motion Cervical Spine Active Degrees Flexion 55 Extension 50 Rotation Left 75 Rotation Right 60 Lateral Flexion Left 50 Lateral Flexion Right 45 Comments mild pain at CT junction w/ ext, rot, RLF 07/15/24: 45 deg LF, 60 deg flex, 60 deg ext, 75 deg L rot , 85 deg R rot Shoulder Goniometric Range of Motion Shoulder right Flexion 160 Extension 60 Abduction 170 External Rotation at 90 degrees 90 Abduction External Rotation at 0 degrees Abduction 55 left Flexion 160 Extension 55 Abduction 165 External Rotation at 90 degrees 80 Abduction External Rotation at 0 degrees Abduction 50 Comments pain and catch feeling w/ 110 deg flex, 125 deg abd; decreased catch w/ increased elevation PROM: full passive ER at 90/90 supine; no pain 07/15/24: 160 deg flex, 165 deg abd; still has pain at 100 deg abd PT-OP-L Special Tests Start: 06/18/24 14:31 Freq: Status: Active Protocol: Document 06/20/24 08:16 NM (Rec: 06/20/24 09:26 NM [id number]) Special Tests Cervical Spine Special Tests Vertebral artery screen Test Results intact cranial nerves, BP 115/ 71 mmHg; no symptoms w/ positional testing Comments auscultation/palpation of carotid a and heart WFL distraction Test Results + Comments reports decreased burning sensation Spurling's Test Test Results - Shoulder Special Tests Empty Can Test Results - Comments reports clicking w/ rotation but no pain with resisted testing Yergason's Biceps Test Results - Speed's Biceps Test Results - Grind Labrum Test Results + Biceps Load II Test Test Results - Lift-Off Rotator Cuff Test Results + Comments painful but able Belly Press Test Results - Hornblowers Sign Test Results + PT-OP-M Strength Start: 06/18/24 14:31 Freq: Status: Active Protocol: Document 07/15/24 14:33 NM (Rec: 07/15/24 15:25 NM [id number]) Shoulder Strength Shoulder Manual Muscle Testing Right Flexion 4 Good Abduction (C5) 4 Good External Rotation 4 Good Internal Rotation 4 Good Left Flexion 4+ Good+ Extension 4- Good- External Rotation 4 Good Internal Rotation 4 Good Comments No pain with resisted testing PT-OP-Q Treatments Start: 06/18/24 14:31 Freq: Status: Active Protocol: Document 07/17/24 08:08 AB (Rec: 07/17/24 10:18 AB [id number]) Therapeutic Exercises Sidelying Exercises open book Sidelying Exercise Name HEP review - for thoracic mobility Side bilateral Reps/Minutes X10 Comments post manual Sitting Exercises scalene stretch Sitting Exercise Name holding chair Side bilateral Reps/Minutes 60 sec each side with AROM flex/ext intermittently Comments Verbal cues Standing Exercises cheerleaders Standing Exercise Name horizontal abd, then at angles (pnf directions) Side bilateral Resistance level one latex free Reps/Minutes X10 Comments verbal cues statue of [employer] Side left Reps/Minutes one minute Comments verbal and visual Manual Therapy Treatment Soft Tissue Mobilization chest/trunk Body Location B all pecs, lats, rhomboids, traps, scalenes thoracic paraspinals Mobilization Type Cross-Friction,Instrument Assisted,Rolling,Strumming Intensity/Depth Moderate Body Position Sidelying Comments Tolerated well. Monitored for pain, palpable muscle restriction at rhomboids Joint Mobilizations left AC Direction caudal Grade II Body Position Sitting Reps/Duration 2x10 scapular mobilization Joint bilateral Direction into depression and adduction Grade IV Body Position X10 each PT-OP-T Assessment and Plan Start: 06/18/24 14:31 Freq: Status: Active Protocol: Document 07/17/24 08:08 AB (Rec: 07/17/24 10:18 AB [id number]) Physical Therapy Assessment Goals Five Impairment B shoulder strength 4/5 R, 4-/ 5 L Alf Goal (LTG) Pt will increase B shoulder strength globally to at least 4+/5 without increase in pain in order to demonstrate improved strength for lifting, reaching ADLs and cross fit 07/15/24: 4/5 ER/IR, 4-/5 and, 4+/5 flex LTG Duration 8 weeks PROGRESSING Four Impairment pain with sleeping Short Term Goal (STG) Pt will be educated on sleeping ergonomics in order to improve pain and symptom management 07/03/24: pt has been educated on sleeping position and modifications to reduce shoulder pain and neural symptoms into hands STG Duration 3 weeks MET Alf Goal (LTG) Pt will report not waking due to pain in B shoulders at least 75% of the time 07/15/24: pt reports waking Rarely, <75% of the time d/t shoulder pain LTG Duration 8 weeks MET Three Impairment quickdash 22.7% impairment w/ ADLs and recreation Alf Goal (LTG) Pt will report no shoulder pain with playing violin or vacuuming in order to demonstrate improvement in ability to perform ADLs/IADLs and recreational activities without limitation 07/12/24: pt reports no pain in shoulder after last 2 violin sessions 07/15/24: 13.6% impairment LTG Duration 8 weeks MET Two Impairment cervical spine AROM limited R rotation 60 deg Short Term Goal (STG) Pt will improve R cervical spine rotation AROM to at least 70 deg in order to improve visual scanning for driving 07/12/24: 74 deg L rot, 80 deg R rot start of session Residential Direct Support Professional Goal (LTG) Pt will improve B cervical spine rotation > 75 deg in order to improve ability to perform visual scanning for driving and playing violin 07/15/24: 75 deg L rot, 85 deg R rot LTG Duration 8 weeks MET One Impairment L shoulder ROM limited Residential Direct Support Professional Goal (LTG) Pt will improve L shoulder flexion and abduction AROM to >165 deg in order to be able to perform reaching for cross fit exercises 07/12/24: 165 deg L shoulder flex still achy/pinch, 170 deg abd (also present but fwd still most) 07/15/24: 160 deg L shoulder flex, 165 deg abd; still demos catching in abd at 110 deg LTG Duration 8 weeks PROGRESSING Assessment Summary Assessment Crunchy sensation with left UE open chain movement persists. AROM left shoulder flexion 157 deg end of session. Physical Therapy Plan Frequency and Duration Frequency of Treatment 2x/Week Duration of treatment (weeks) 8 Plan of Care Start Date 06/18/24 Plan of Care End Date 08/16/24 Next Visit Focus/Plan Next Note Type Treatment Note Next Visit Plan latex allergy Serratus/scap strength closed chain. Cont with serratus strength. cont with banded RTC w/ elevation and add IR, Trial sidelying trio again for RTC strength. Trial lat stretch and lat mobilization. Manual: joint mobilizations, soft tissue mobilization Possibly scalene stretch to HEP, revisit cheerleader ex
--- NOTE | 2024-07-23 08:14 | PT.OTN ---
Current Diagnoses Pain in left shoulder (07/23/24) Stiffness of left shoulder, not elsewhere classified (07/23/24) Weakness (07/23/24) Physical Therapy Treatment Note PT-OP-A Visit Information Start: 06/18/24 14:31 Freq: Status: Active Protocol: Document 07/23/24 07:34 NM (Rec: 07/23/24 08:13 NM [id number]) Out-Patient Physical Therapy Visit Information Visit Information Visit Type Treatment Note Visit Note latex allergy Visit Start Time 07:35 Visit Stop Time 08:13 Visit Number 06/18 PT-OP-B Current Condition Start: 06/18/24 14:31 Freq: Status: Active Protocol: Document 06/18/24 14:33 NM (Rec: 06/18/24 15:40 NM [id number]) Current Condition History of Current Condition Current Complaints pain History of Current Condition Pt presents with L shoulder pain. Has had for a year. Reports that sleeping on her shoulder is hard (side-stomach ). Unsure HARLEEN. Reports that just started to bother her one day. She did just start playing violin 1 year ago, sore after session. Pt reports crunchy shoulder B, L>R. Reports lots of popping with ER/IR osiel in adduction; no locking or catching. Pt reports no pain with lifting. Feels pain with push ups. No hx of shoulder injuries on L side. She reports that on R side she had loss of strength in R arm. She gets numb tingling. Wakes her up at night. She reports constant neck pain, states that has been ongoing for years. States locking feeling in neck. Episode occured in past month, when she saw Dr. He. She had had 3 within past 5 years. She reports neck pain worse after workouts. Massage helps, painful episodes. She reports that she gets a burning sensation into her L shoulder over RTC. L handed. She reports that the pain wakes her up at night. R shoulder stopped bothering within last 2 weeks. She reports that she painting her house for past month, no increased numbness and tingling. Has been using lacrosse ball Current Functional Impairments (Reported) Functional Limitations- ADL's washing back, vacuuming Functional Limitations- Mobility/Gait wt lifting (cross fit) 4x/wk has been doing since 2012 previous yoga 6 months Functional Limitations- Recreation/ violin Hobbies PT-OP-C Subjective Start: 06/18/24 14:31 Freq: Status: Active Protocol: Document 07/23/24 07:34 NM (Rec: 07/23/24 08:13 NM [id number]) OP-PT Subjective Patient Comments Patient Comments Pt reports shoulder is doing better, states improving. Planning to discharge next session. Pt reports that her neck is still getting a burn across her upper back and scapular, less frequently but same intensity. PT-OP-E Functional Tests Start: 06/18/24 14:31 Freq: Status: Active Protocol: Document 06/18/24 14:33 NM (Rec: 06/18/24 15:40 NM [id number]) Functional Tests Apley's Scratch Test Action 1- Left scapular spine; no inc pain Action 1- Right infraspinatus; no inc pain Action 2- Left T2; challenging but not painful Action 2- Right T4 Action 3- Left T8; demos winging Action 3- Right T7; demos winging PT-OP-F Manual Assessment Start: 06/18/24 14:31 Freq: Status: Active Protocol: Document 06/18/24 14:33 NM (Rec: 06/18/24 15:40 NM [id number]) Manual Assessments Soft Tissue Assessment Soft Tissue Mobility Assessment Tenderness over L rotator cuff and restrictions of periscapulars Joint Mobility Assessment Joint Mobility Assessment Decreased L scapular mobility, increased winging on L side and anterior humeral position; gentle overpressure improves symptoms. No AC joint compression PT-OP-J Posture/Palpation/Skin Start: 06/18/24 14:31 Freq: Status: Active Protocol: Document 06/18/24 14:33 NM (Rec: 06/18/24 15:40 NM [id number]) Posture Evaluation Position Standing Head/C-Spine Posture Forward Head Shoulder Posture (L) Rounded,(R) Rounded Scapula Posture (L) Winged,(R) Winged Arm Posture (L) Internally Rotated,(R) Internally Rotated Pelvis Posture Anteriorly Tilted Hip Posture (L) Externally Rotated,(R) Externally Rotated Palpation Assessment Location R shoulder Palpation Details No tenderness over anterior, lateral, or posterior shoulder L shoulder Palpation Findings Tenderness Palpation Details Tenderness to palpation over biceps long head tendon, lateral shoulder over rotator cuff insertion and tender when following tendon to supraspinatus, infraspinatus, and teres minor Increased restrictions of periscapulars on L side, cervical paraspinals especially at CT junction Anterior humeral position PT-OP-K Range of Motion Start: 06/18/24 14:31 Freq: Status: Active Protocol: Document 07/15/24 14:33 NM (Rec: 07/15/24 15:25 NM [id number]) Cervical Spine Range of Motion Cervical Spine Active Degrees Flexion 55 Extension 50 Rotation Left 75 Rotation Right 60 Lateral Flexion Left 50 Lateral Flexion Right 45 Comments mild pain at CT junction w/ ext, rot, RLF 07/15/24: 45 deg LF, 60 deg flex, 60 deg ext, 75 deg L rot , 85 deg R rot Shoulder Goniometric Range of Motion Shoulder right Flexion 160 Extension 60 Abduction 170 External Rotation at 90 degrees 90 Abduction External Rotation at 0 degrees Abduction 55 left Flexion 160 Extension 55 Abduction 165 External Rotation at 90 degrees 80 Abduction External Rotation at 0 degrees Abduction 50 Comments pain and catch feeling w/ 110 deg flex, 125 deg abd; decreased catch w/ increased elevation PROM: full passive ER at 90/90 supine; no pain 07/15/24: 160 deg flex, 165 deg abd; still has pain at 100 deg abd PT-OP-L Special Tests Start: 06/18/24 14:31 Freq: Status: Active Protocol: Document 06/20/24 08:16 NM (Rec: 06/20/24 09:26 NM [id number]) Special Tests Cervical Spine Special Tests Vertebral artery screen Test Results intact cranial nerves, BP 115/ 71 mmHg; no symptoms w/ positional testing Comments auscultation/palpation of carotid a and heart WFL distraction Test Results + Comments reports decreased burning sensation Spurling's Test Test Results - Shoulder Special Tests Empty Can Test Results - Comments reports clicking w/ rotation but no pain with resisted testing Yergason's Biceps Test Results - Speed's Biceps Test Results - Grind Labrum Test Results + Biceps Load II Test Test Results - Lift-Off Rotator Cuff Test Results + Comments painful but able Belly Press Test Results - Hornblowers Sign Test Results + PT-OP-M Strength Start: 06/18/24 14:31 Freq: Status: Active Protocol: Document 07/15/24 14:33 NM (Rec: 07/15/24 15:25 NM [id number]) Shoulder Strength Shoulder Manual Muscle Testing Right Flexion 4 Good Abduction (C5) 4 Good External Rotation 4 Good Internal Rotation 4 Good Left Flexion 4+ Good+ Extension 4- Good- External Rotation 4 Good Internal Rotation 4 Good Comments No pain with resisted testing PT-OP-Q Treatments Start: 06/18/24 14:31 Freq: Status: Active Protocol: Document 07/23/24 07:34 NM (Rec: 07/23/24 08:13 NM [id number]) Therapeutic Exercises Standing Exercises raises Standing Exercise Name 1. scaption, 2. lateral Side bilateral Resistance 2.2# balls ea hand Reps/Minutes 10 ea Comments pain free serratus wall slide Standing Exercise Name w/ foam roller Side bilateral Resistance level 2 band Reps/Minutes 15 ea Comments improved activation Other Exercises 1/2 kneel Other Exercise Name 1. D2, 2. ER+ 90 deg flex, 3. ER + press Side bilateral Resistance level 2 Reps/Minutes 1. 10 ea, 2. 10 ea, 3. 10 ea Comments performed w/ cupping at teres/ infra; less crepitus w/ RTC activation Manual Therapy Treatment Consent Patient gave verbal consent for manual Yes treatment Soft Tissue Mobilization chest/trunk Body Location B all pecs, lats, rhomboids, traps, scalenes thoracic paraspinals Mobilization Type Cross-Friction,Instrument Assisted,Rolling,Strumming Intensity/Depth Moderate Body Position Sidelying Comments Tolerated well. Monitored for pain, palpable muscle restriction at rhomboids, pec L shoulder Body Location pec, supr, infra, rhomb post cuff, biceps, lat Mobilization Type Cross-Friction,Rolling, Sustained Pressure,Trigger Point Release Intensity/Depth Deep Body Position Sidelying Comments Trigger point and tenderness at subscap/lat/infra/teres interface. Increased time spent at spot, improved but not eliminated w/ soft tissue mobilization cervical spine Body Location paraspinals, LS, UT, SCM, scalenes, SOR Mobilization Type Cross-Friction,Instrument Assisted,Rolling,Sustained Pressure,Trigger Point Release Intensity/Depth Superficial Comments to moderate Supine and sidelying. PT-OP-T Assessment and Plan Start: 06/18/24 14:31 Freq: Status: Active Protocol: Document 07/23/24 07:34 NM (Rec: 07/23/24 08:13 NM [id number]) Physical Therapy Assessment Goals Five Impairment B shoulder strength 4/5 R, 4-/ 5 L Parts Counter Associate Goal (LTG) Pt will increase B shoulder strength globally to at least 4+/5 without increase in pain in order to demonstrate improved strength for lifting, reaching ADLs and cross fit 07/15/24: 4/5 ER/IR, 4-/5 and, 4+/5 flex LTG Duration 8 weeks PROGRESSING Four Impairment pain with sleeping Short Term Goal (STG) Pt will be educated on sleeping ergonomics in order to improve pain and symptom management 07/03/24: pt has been educated on sleeping position and modifications to reduce shoulder pain and neural symptoms into hands STG Duration 3 weeks MET Senior Care Goal (LTG) Pt will report not waking due to pain in B shoulders at least 75% of the time 07/15/24: pt reports waking Rarely, <75% of the time d/t shoulder pain LTG Duration 8 weeks MET Three Impairment quickdash 22.7% impairment w/ ADLs and recreation Senior Care Goal (LTG) Pt will report no shoulder pain with playing violin or vacuuming in order to demonstrate improvement in ability to perform ADLs/IADLs and recreational activities without limitation 07/12/24: pt reports no pain in shoulder after last 2 violin sessions 07/15/24: 13.6% impairment LTG Duration 8 weeks MET Two Impairment cervical spine AROM limited R rotation 60 deg Short Term Goal (STG) Pt will improve R cervical spine rotation AROM to at least 70 deg in order to improve visual scanning for driving 07/12/24: 74 deg L rot, 80 deg R rot start of session Parts Counter Associate Goal (LTG) Pt will improve B cervical spine rotation > 75 deg in order to improve ability to perform visual scanning for driving and playing violin 07/15/24: 75 deg L rot, 85 deg R rot LTG Duration 8 weeks MET One Impairment L shoulder ROM limited Senior Care Goal (LTG) Pt will improve L shoulder flexion and abduction AROM to >165 deg in order to be able to perform reaching for cross fit exercises 07/12/24: 165 deg L shoulder flex still achy/pinch, 170 deg abd (also present but fwd still most) 07/15/24: 160 deg L shoulder flex, 165 deg abd; still demos catching in abd at 110 deg LTG Duration 8 weeks PROGRESSING Assessment Summary Assessment Pt has less crepitus with increased rotator cuff activation bilaterally. Good feedback for rotator cuff circuit with elevation, especially into open chain. Progressed to foam roller with serratus roll up at wall, maintains posture with minimal cueing but fatiguing. Good progression into open chain raises, including lateral raises. PT and pt discussed discharge next session as no further auth provided. Physical Therapy Plan Frequency and Duration Frequency of Treatment 2x/Week Duration of treatment (weeks) 8 Plan of Care Start Date 06/18/24 Plan of Care End Date 08/16/24 Therapeutic Interventions Therapeutic Interventions Gait Training,Home Exercise Program,Joint Mobilizations, Manual Therapy,Neuromuscular Re-education,Orthotic/ Prosthetic Management,Patient/ Caregiver Education,Self-Care/ Home Management,Soft Tissue Mobilization,Therapeutic Activities Modalities Cold Pack/Ice Massage,Electric Stimulation,Hot Packs, Traction- Mechanical, Ultrasound Next Visit Focus/Plan Next Note Type Discharge Summary Next Visit Plan latex allergy RTC circuit. Assess tolerance to cupping and progressions especially raises. 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
--- NOTE | 2024-07-23 08:17 | PT-OP ANOTE ---
Addendum entered and electronically signed by Farida Asher, PT 07/23/24 16:10: PT also recommended that pt follow up with ED if symptoms return or worsen Original Note: PT called and spoke to pt, informed her that used latex bands during session. Pt reports smells like her hands smell, states that she gets a rash and respiratory. Thanked PT and informed pt that she will plan to take a shower and a benadryl. PT will follow up with pt later today
--- NOTE | 2024-07-23 16:08 | PT-OP ANOTE ---
PT called and spoke to at pt at 1602 to follow up with pt following use of latex band during session. Pt reports that she took a benadryl and used lotion. States that her hands usually get cracked but states that she does not have that. States that she does not have any respiratory symptoms. She reports that benadryl and lotion did the trick and that she's doing fine. She is planning to attend her d/c appt on
--- NOTE | 2024-07-25 12:19 | PT.OTN ---
Current Diagnoses Pain in left shoulder (07/25/24) Stiffness of left shoulder, not elsewhere classified (07/25/24) Weakness (07/25/24) Physical Therapy Treatment Note PT-OP-A Visit Information Start: 06/18/24 14:31 Freq: Status: Active Protocol: Document 07/25/24 07:27 NM (Rec: 07/25/24 08:19 NM [id number]) Out-Patient Physical Therapy Visit Information Visit Information Visit Type Discharge Summary Visit Note latex allergy Visit Start Time 07:31 Visit Stop Time 08:15 Visit Number 07/18 Evaluation Information Evaluation Date 06/18/24 Precautions Precautions Latex allergy PT-OP-B Current Condition Start: 06/18/24 14:31 Freq: Status: Active Protocol: Document 06/18/24 14:33 NM (Rec: 06/18/24 15:40 NM [id number]) Current Condition History of Current Condition Current Complaints pain History of Current Condition Pt presents with L shoulder pain. Has had for a year. Reports that sleeping on her shoulder is hard (side-stomach ). Unsure HARLEEN. Reports that just started to bother her one day. She did just start playing violin 1 year ago, sore after session. Pt reports crunchy shoulder B, L>R. Reports lots of popping with ER/IR osiel in adduction; no locking or catching. Pt reports no pain with lifting. Feels pain with push ups. No hx of shoulder injuries on L side. She reports that on R side she had loss of strength in R arm. She gets numb tingling. Wakes her up at night. She reports constant neck pain, states that has been ongoing for years. States locking feeling in neck. Episode occured in past month, when she saw Dr. He. She had had 3 within past 5 years. She reports neck pain worse after workouts. Massage helps, painful episodes. She reports that she gets a burning sensation into her L shoulder over RTC. L handed. She reports that the pain wakes her up at night. R shoulder stopped bothering within last 2 weeks. She reports that she painting her house for past month, no increased numbness and tingling. Has been using lacrosse ball Current Functional Impairments (Reported) Functional Limitations- ADL's washing back, vacuuming Functional Limitations- Mobility/Gait wt lifting (cross fit) 4x/wk has been doing since 2012 previous yoga 6 months Functional Limitations- Recreation/ violin Hobbies PT-OP-C Subjective Start: 06/18/24 14:31 Freq: Status: Active Protocol: Document 07/25/24 07:27 NM (Rec: 07/25/24 08:19 NM [id number]) OP-PT Subjective Patient Comments Patient Comments Pt reports that her R side of her neck is locked up today and is shooting down to the L side of her bacbk; unsure of what caused it. She states that she felt good on Monday. Reports that her shoulders are doing better, Still a little crunchy with activity but less painful. Pt does not have any further auth. Planning to discharge this session. Pt in agreement. Has been compliant with HEP. No rash or dry hands following last session where pt used latex bands PT-OP-E Functional Tests Start: 06/18/24 14:31 Freq: Status: Active Protocol: Document 06/18/24 14:33 NM (Rec: 06/18/24 15:40 NM [id number]) Functional Tests Apley's Scratch Test Action 1- Left scapular spine; no inc pain Action 1- Right infraspinatus; no inc pain Action 2- Left T2; challenging but not painful Action 2- Right T4 Action 3- Left T8; demos winging Action 3- Right T7; demos winging PT-OP-F Manual Assessment Start: 06/18/24 14:31 Freq: Status: Active Protocol: Document 06/18/24 14:33 NM (Rec: 06/18/24 15:40 NM [id number]) Manual Assessments Soft Tissue Assessment Soft Tissue Mobility Assessment Tenderness over L rotator cuff and restrictions of periscapulars Joint Mobility Assessment Joint Mobility Assessment Decreased L scapular mobility, increased winging on L side and anterior humeral position; gentle overpressure improves symptoms. No AC joint compression PT-OP-J Posture/Palpation/Skin Start: 06/18/24 14:31 Freq: Status: Active Protocol: Document 06/18/24 14:33 NM (Rec: 06/18/24 15:40 NM [id number]) Posture Evaluation Position Standing Head/C-Spine Posture Forward Head Shoulder Posture (L) Rounded,(R) Rounded Scapula Posture (L) Winged,(R) Winged Arm Posture (L) Internally Rotated,(R) Internally Rotated Pelvis Posture Anteriorly Tilted Hip Posture (L) Externally Rotated,(R) Externally Rotated Palpation Assessment Location R shoulder Palpation Details No tenderness over anterior, lateral, or posterior shoulder L shoulder Palpation Findings Tenderness Palpation Details Tenderness to palpation over biceps long head tendon, lateral shoulder over rotator cuff insertion and tender when following tendon to supraspinatus, infraspinatus, and teres minor Increased restrictions of periscapulars on L side, cervical paraspinals especially at CT junction Anterior humeral position PT-OP-K Range of Motion Start: 06/18/24 14:31 Freq: Status: Active Protocol: Document 07/25/24 07:27 NM (Rec: 07/25/24 08:19 NM [id number]) Cervical Spine Range of Motion Cervical Spine Active Degrees Flexion 55 Extension 50 Rotation Left 75 Rotation Right 60 Lateral Flexion Left 50 Lateral Flexion Right 45 Comments mild pain at CT junction w/ ext, rot, RLF 07/15/24: 45 deg LF, 60 deg flex, 60 deg ext, 75 deg L rot , 85 deg R rot 07/25/24: 50 flex, 60 ext, 45 R LF, 10 L LF, 65 L rot, 75 R rot Shoulder Goniometric Range of Motion Shoulder right Flexion 160 Extension 60 Abduction 170 External Rotation at 90 degrees 90 Abduction External Rotation at 0 degrees Abduction 55 left Flexion 165 Extension 55 Abduction 170 External Rotation at 90 degrees 80 Abduction External Rotation at 0 degrees Abduction 50 Comments pain and catch feeling w/ 110 deg flex, 125 deg abd; decreased catch w/ increased elevation PROM: full passive ER at 90/90 supine; no pain 07/15/24: 160 deg flex, 165 deg abd; still has pain at 100 deg abd PT-OP-L Special Tests Start: 06/18/24 14:31 Freq: Status: Active Protocol: Document 06/20/24 08:16 NM (Rec: 06/20/24 09:26 NM [id number]) Special Tests Cervical Spine Special Tests Vertebral artery screen Test Results intact cranial nerves, BP 115/ 71 mmHg; no symptoms w/ positional testing Comments auscultation/palpation of carotid a and heart WFL distraction Test Results + Comments reports decreased burning sensation Spurling's Test Test Results - Shoulder Special Tests Empty Can Test Results - Comments reports clicking w/ rotation but no pain with resisted testing Yergason's Biceps Test Results - Speed's Biceps Test Results - Grind Labrum Test Results + Biceps Load II Test Test Results - Lift-Off Rotator Cuff Test Results + Comments painful but able Belly Press Test Results - Hornblowers Sign Test Results + PT-OP-M Strength Start: 06/18/24 14:31 Freq: Status: Active Protocol: Document 07/25/24 07:27 NM (Rec: 07/25/24 08:19 NM [id number]) Shoulder Strength Shoulder Manual Muscle Testing Right Flexion 4 Good Abduction (C5) 4 Good External Rotation 4 Good Internal Rotation 4 Good Left Flexion 4+ Good+ Extension 4- Good- External Rotation 4+ Good+ Internal Rotation 4+ Good+ Comments No pain with resisted testing PT-OP-Q Treatments Start: 06/18/24 14:31 Freq: Status: Active Protocol: Document 07/25/24 07:27 NM (Rec: 07/25/24 08:19 NM [id number]) Therapeutic Exercises Prone Exercises scapular clock Side bilateral Resistance level 1 latex free band Reps/Minutes 5 ea side scapular plank Prone Exercise Name dolphin plank Side bilateral Reps/Minutes 5 Sitting Exercises cervical SNAGs Sitting Exercise Name 1. lateral flex, 2. cervical rotation Side bilateral Equipment Used using towel Reps/Minutes 2 min ea Comments PT instruct and demo; then pt performing Standing Exercises Y<>W lift offs Standing Exercise Name for scap depression: 1. W<>Y w / band, 2. w/o band Side bilateral Resistance with level 1 band Equipment Used at wall Reps/Minutes 1. 5, 2. 10 ea at wall Comments post manual Other Exercises self traction Other Exercise Name cervical spine w/ towel roll, bolster under feet Side bilateral Reps/Minutes 2 minutes Comments good symptom reduction 1/2 kneel Other Exercise Name 1. D2, 2. ER+ 90 deg flex, 3. ER + press Side bilateral Resistance level 1 band d/t neck discomfort Equipment Used sitting Reps/Minutes 5 ea Manual Therapy Treatment Joint Mobilizations cervical spine Joint C3-C5 Direction lateral B (L>R), upglides Grade II Comments To improve mobility and assist with shoulder mobility across kinetic chain. Initial tenderness and limited mobility on L side. Improved with reps, less tenderness and pain. Performed MWM into rotation and lateral flexion Performed in supine and sitting with functional movement scapular mobilization Joint bilateral Direction into depression and adduction Grade III Body Position Sidelying Reps/Duration 10 Manual Traction cervical spine Body Position Hooklying Reps/Duration 2x30 Comments Improved symptoms PT-OP-T Assessment and Plan Start: 06/18/24 14:31 Freq: Status: Active Protocol: Document 07/25/24 07:27 NM (Rec: 07/25/24 08:19 NM [id number]) Physical Therapy Assessment Goals Five Impairment B shoulder strength 4/5 R, 4-/ 5 L Sign Language Teacher Goal (LTG) Pt will increase B shoulder strength globally to at least 4+/5 without increase in pain in order to demonstrate improved strength for lifting, reaching ADLs and cross fit 07/15/24: 4/5 ER/IR, 4-/5 and, 4+/5 flex 07/25/24: 4+/5 for ER/IR, 4-/5 for abd, 4+/5 for flex LTG Duration 8 weeks PROGRESSING, PARTIALLY MET 07/25/24 Four Impairment pain with sleeping Short Term Goal (STG) Pt will be educated on sleeping ergonomics in order to improve pain and symptom management 07/03/24: pt has been educated on sleeping position and modifications to reduce shoulder pain and neural symptoms into hands STG Duration 3 weeks MET [facility] Goal (LTG) Pt will report not waking due to pain in B shoulders at least 75% of the time 07/15/24: pt reports waking Rarely, <75% of the time d/t shoulder pain LTG Duration 8 weeks MET Three Impairment quickdash 22.7% impairment w/ ADLs and recreation [facility] Goal (LTG) Pt will report no shoulder pain with playing violin or vacuuming in order to demonstrate improvement in ability to perform ADLs/IADLs and recreational activities without limitation 07/12/24: pt reports no pain in shoulder after last 2 violin sessions 07/15/24: 13.6% impairment LTG Duration 8 weeks MET Two Impairment cervical spine AROM limited R rotation 60 deg Short Term Goal (STG) Pt will improve R cervical spine rotation AROM to at least 70 deg in order to improve visual scanning for driving 07/12/24: 74 deg L rot, 80 deg R rot start of session [facility] Goal (LTG) Pt will improve B cervical spine rotation > 75 deg in order to improve ability to perform visual scanning for driving and playing violin 07/15/24: 75 deg L rot, 85 deg R rot LTG Duration 8 weeks MET One Impairment L shoulder ROM limited [facility] Goal (LTG) Pt will improve L shoulder flexion and abduction AROM to >165 deg in order to be able to perform reaching for cross fit exercises 07/12/24: 165 deg L shoulder flex still achy/pinch, 170 deg abd (also present but fwd still most) 07/15/24: 160 deg L shoulder flex, 165 deg abd; still demos catching in abd at 110 deg 07/25/24: 165 deg flex, 170 deg abd L side LTG Duration 8 weeks MET Progress Towards Goals Progress Towards Goals Progressing Toward Goals,Slow Progress - Other,Goals Met Assessment Summary Assessment Pt tolerated session better post manual tx to neck. Best response to manual treatment with scapular and cervical spine mobilizations. Good feedback for mobilization with movement and self SNAGs. Educated to reach out to PCP for PT referral for cervical spine. Pt demonstrates improvements in cervical spine and L shoulder AROM following manual treatment. Continues to have good tolerance for wall periscapulars and for banded rotator cuff circuit; reducation in band resistance due to general irritability of cervical spine. Physical Therapy Plan Frequency and Duration Frequency of Treatment 2x/Week Duration of treatment (weeks) 8 Plan of Care Start Date 06/18/24 Plan of Care End Date 08/16/24 Therapeutic Interventions Therapeutic Interventions Gait Training,Home Exercise Program,Joint Mobilizations, Manual Therapy,Neuromuscular Re-education,Orthotic/ Prosthetic Management,Patient/ Caregiver Education,Self-Care/ Home Management,Soft Tissue Mobilization,Therapeutic Activities Modalities Cold Pack/Ice Massage,Electric Stimulation,Hot Packs, Traction- Mechanical, Ultrasound Discharge Physical Therapy Discharge Reasons Goals Met Discharge Comments PT and pt discussed discharge from PT today as pt no longer has authorizations for visits. All goals met except for strength goals. Issued and educated on maintenance program 3x/wk for at least 6 months to address remaining goals. PT also issued progressions with both bands and exercises (verbally, no handouts provided) for pt progress with her strength. PT educated pt on following up with PCP if cervical spine/ shoulder symptoms return, change, or worsen; PT also recommending that pt have assessment from family resource specialist if shoulder symptoms stop improving. PT recommending that pt get new referral to address limitations and symptoms in her cervical spine. Pt verbalizes understanding. Next Visit Focus/Plan Next Note Type Discharge Summary Next Visit Plan discharge from PT
== END 2024-08-02 09:30 | disposition home or self-care (01) ==
LOC: PHYS 07:30
PROVIDERS: Family Provider Registered Nurse Diabetes Educator; PCP Registered Nurse Diabetes Educator; Referring Provider Registered Nurse Diabetes Educator; Visit Provider Registered Nurse Diabetes Educator
DX: M25.512 Pain in left shoulder (principal); M25.612 Stiffness of left shoulder, not elsewhere classified; R53.1 Weakness
CPT/HCPCS: 97110; 97140; 97161

== ENCOUNTER → 2025-07-01 16:42 | Outpatient (CLI) | payer OTHER, SELFPAY ==
--- NOTE | 2025-07-01 16:44 | DI.MG.S_ITS ---
MM screening mammo BI: 07/01/2025. BI-RADS: 1 CLINICAL: 40-year old female for bilateral screening mammogram. Tyrer-Cuzick lifetime risk of 17.1%. No personal or first-degree family history of breast cancer. Current reported family history of breast cancer: paternal grandmother. PRIOR EXAMS 05/21/2024, 04/27/2023, 06/30/2021. MAMMOGRAPHY TECHNIQUE: 2D and 3D (tomosynthesis) digital mammographic views obtained, with additional images as needed for full coverage. Current study was also evaluated with a Computer Aided Detection (CAD) system. DENSITY D. The breasts are extremely dense, which lowers the sensitivity of mammography. MAMMOGRAPHY FINDINGS Bilateral: No suspicious mass, asymmetry, microcalcification, or other abnormality seen. IMPRESSION: * No evidence of malignancy. RECOMMENDATIONS Bilateral * Annual screening mammography. OVERALL ASSESSMENT CATEGORY BI-RADS-1: Negative. The [employer] recommends annual screening mammography beginning at age 40 for women with average risk of breast cancer. ELECTRONICALLY SIGNED: John Almodovar M.D. on 07/02/2025 at 11:01:08 AM PT Interpreting Station ID: [id number]
== END ==
LOC: MAMMO 16:43
PROVIDERS: Family Provider Registered Nurse Diabetes Educator; PCP Registered Nurse Diabetes Educator; Referring Provider Registered Nurse Diabetes Educator; Visit Provider Registered Nurse Diabetes Educator
DX: Z12.31 Encounter for screening mammogram for malignant neoplasm of breast (principal); R92.343 Mammographic extreme density, bilateral breasts; Z80.3 Family history of malignant neoplasm of breast
CPT/HCPCS: 77063; 77067